=== PATIENT | female | born 1960 | race Caucasian/White ===

== ENCOUNTER 2022-06-01 13:02 | Outpatient (CLI) | payer BC, SELFPAY ==
--- NOTE | 2022-06-01 13:20 | CRLHL7_ITS ---
For Patients: As a result of the Cures Act, medical imaging exams and procedure reports are released immediately into your electronic medical record. You may view this report before your referring provider. If you have questions, please contact your health care provider. BILATERAL SCREENING MAMMOGRAM WITH COMPUTER-AIDED DETECTION AND TOMOSYNTHESIS TECHNIQUE: CC and MLO views were obtained. These mammographic images have been obtained using full-field digital technique. These mammographic images were interpreted with the benefit of computer-aided detection. Breast Tomosynthesis was used in this interpretation. COMPARISON FILM: 03/03/21, 07/29/18, 07/25/17. FINDINGS: There are scattered areas of fibroglandular density IMPRESSION: There is no radiographic evidence for malignancy. ASSESSMENT: BI-RADS Category 1: Negative RECOMMENDATION: Routine screening mammogram in 1 year. A lay language report of this examination will be provided to the patient. GULSHAN STOCKTON M.D. Diagnostic/Nuclear Medicine Radiologist [email or web address] MARIBETH:glenn Transcribed: 3:28 p.mTremaine elizabeth/Dictated by: Gulshan Stockton MD @ 06/11/2022 8:27:00 AM (Electronically Signed)
== END 2022-06-01 13:03 | disposition home or self-care (01) ==
LOC: MAMMO 13:03
PROVIDERS: PCP Family Medicine
DX: Z12.31 Encounter for screening mammogram for malignant neoplasm of breast (principal)
CPT/HCPCS: 77063; 77067

== ENCOUNTER 2022-09-04 09:56 | Outpatient (CLI) | payer BC, SELFPAY ==
--- NOTE | 2022-09-04 10:00 | CRLHL7_ITS ---
For Patients: As a result of the Cures Act, medical imaging exams and procedure reports are released immediately into your electronic medical record. You may view this report before your referring provider. If you have questions, please contact your health care provider. Indication: Sinusitis, pressure Technique: Performed without IV contrast Comparison: None available Findings: Frontal sinuses: Clear. Ethmoid sinuses: Clear. Maxillary sinuses: Mild mucosal thickening within the left maxillary sinus. The right maxillary sinus is clear. The maxillary sinus drainage pathways are patent on both sides. Sphenoid sinuses: Partial opacification of the right sphenoid sinus with mucus and mucosal thickening along with at least partial obstruction of the sphenoethmoidal recess. The left sphenoid sinus and sinus drainage pathway are both clear. Nasal Cavity: Nasal septum is midline. No nasal polyps. No TMJ abnormalities identified. The visualized portions of the orbits, intracranial contents and upper soft tissue neck are grossly negative. Impression: 1. Moderate acute right sphenoid sinus disease. 2. Mild left maxillary sinus disease. Please note that all CT scans at this facility use dose modulation, iterative reconstruction, and/or weight-based dosing when appropriate to reduce radiation dose to as low as reasonably achievable. Dictated by Kory Arambula MD @ 09/04/2022 1:03:17 PM (Electronically Signed)
== END 2022-09-04 09:57 | disposition home or self-care (01) ==
LOC: CT 09:57
PROVIDERS: PCP Family Medicine; Visit Provider Otolaryngology
DX: J32.9 Chronic sinusitis, unspecified (principal); J32.3 Chronic sphenoidal sinusitis; J32.0 Chronic maxillary sinusitis
CPT/HCPCS: 70486

== ENCOUNTER 2022-09-16 18:31 | Emergency (ER) | payer BC, SELFPAY ==
[2022-09-16 18:43] VITALS: BP 132/87; PULSE 81; RESP 18; TEMP 36.2; O2SAT 95; BMI 37.3
[2022-09-16 18:48] LABS: Appearance Urine Cloudy (Clear); Bilirubin Urine Negative (Negative); Blood Urine 3+ (Negative); Color Urine Yellow (Yellow); Glucose Urine Negative (Negative); Ketones Urine Negative (Negative); Leukocyte Esterase Urine 2+ (Negative); Nitrite Urine Negative (Negative); Protein Urine 2+ (Negative); Specific Gravity Urine >= 1.030 (1.000-1.030); Urobilinogen Urine 0.2 (0.2-1.0); pH Urine 6.5 (5.0-8.5)
--- NOTE | 2022-09-16 18:48 | ED.FEMALEGU ---
HPI - Female Genitourinary General Time Seen by Provider: 18:48 Date Seen: 09/16/22 Chief complaint: Urogenital Problems, Female Stated complaint: UTI Time Seen by Provider: 09/16/22 18:48 Source: patient and RN notes reviewed Mode of arrival: ambulatory Limitations: no limitations History of Present Illness HPI Narrative: Emily is a very pleasant 61-year-old female with frequent UTI who comes to the emergency room for evaluation regarding dysuria. A pain with urination started on SaturdaySeptember 14. It is continued and now she does have radiation of the pain into her right flank. She has not had any vomiting nor has she had a fever. She notes that she was treated in the past by Dr. Sherita diamond. Related Data Home Medications Medication Instructions Recorded Confirmed aspirin 325 mg tablet,delayed 325 mg PO QDAY 06/15/22 09/16/22 release Previous Rx's Medication Instructions Recorded amoxicillin 875 mg-potassium 1 tab PO BID #28 tabs 07/31/22 clavulanate 125 mg tablet triamcinolone acetonide 0.1 % 1 applic topical BID #15 grams 07/31/22 topical cream cefuroxime axetil 500 mg tablet 500 mg PO BID #30 tabs 08/21/22 fluticasone propionate 50 2 spray intranasal QDAY #16 grams 08/22/22 mcg/actuation nasal spray,suspension (Flonase Allergy Relief) Allergies Allergy/AdvReac Type Severity Reaction Status Date / Time No Known Drug Allergies Allergy Verified 08/21/22 10:42 Review of Systems Status of ROS: Reports: 6 or more systems reviewed and unremarkable except as noted in History and below Narrative: Denies vomiting, nausea, blood in urine, difficulty breathing PFSH PFS Medical History Adenomatous colon polyp ?D12.6 - Benign neoplasm of colon, unspecified (ICD-10) CVA (cerebral vascular accident) (02/19/16) ?I63.9 - Cerebral infarction, unspecified (ICD-10) Degenerative disc disease, cervical ?M50.30 - Other cervical disc degeneration, unspecified cervical region (ICD-10) GERD (gastroesophageal reflux disease) ?K21.9 - Gastro-esophageal reflux disease without esophagitis (ICD-10) History of recurrent UTI (urinary tract infection) ?Z87.440 - Personal history of urinary (tract) infections (ICD-10) Hx of Lyme disease (10/24/18) ?Z86.19 - Personal history of other infectious and parasitic diseases (ICD-10) Hyperlipidemia ?E78.5 - Hyperlipidemia, unspecified (ICD-10) ADRIEL (obstructive sleep apnea) (08/09/21) ?G47.33 - Obstructive sleep apnea (adult) (pediatric) (ICD-10) Osteoarthritis of right shoulder ?M19.011 - Primary osteoarthritis, right shoulder (ICD-10) Positive KARLEY (antinuclear antibody) (12/19/20) ?R76.8 - Other specified abnormal immunological findings in serum (ICD-10) Rotator cuff tear, right ?M75.101 - Unspecified rotator cuff tear or rupture of right shoulder, not specified as traumatic (ICD-10) SVT (supraventricular tachycardia) ?I47.1 - Supraventricular tachycardia (ICD-10) Surgical History History of Mohs micrographic surgery for skin cancer (12/15/15) ?Z85.828 - Personal history of other malignant neoplasm of skin (ICD-10) ?Z98.890 - Other specified postprocedural states (ICD-10) History of radiofrequency ablation (RFA) procedure for cardiac arrhythmia ?Z98.890 - Other specified postprocedural states (ICD-10) S/P tonsillectomy and adenoidectomy ?Z90.89 - Acquired absence of other organs (ICD-10) Family History Father Multiple myeloma Mother Type 2 diabetes mellitus Thyroid disease Brother Type 2 diabetes mellitus Aunt Malignant neoplasm of fallopian tube Social History Narrative: . 3 children. Retired. Nonsmoker. Social EtOH. Smoking Status: Never smoker Little interest or pleasure in doing things: not at all Feeling down, depressed, or hopeless: not at all Exam Narrative: Exam Narrative: Alert and oriented. Nontoxic in appearance. Heart with regular rate and rhythm and lungs are clear to auscultation. No flank tenderness with percussion. Abdomen is soft. Some slight increased pressure with palpation of the lower abdomen. Const: Vital Signs, click to edit/add: Vital Signs - 24 hr 09/16/22 18:43 Temperature 97.2 F L Pulse Rate [Right Pulse Oximeter] 81 Respiratory Rate 18 Blood Pressure [Ri ght Upper Arm] 132/87 Pulse Oximetry 95 Oxygen Delivery Me thod Room Air Documenting provider has reviewed patient's vital signs: yes Course Vital Signs Vital signs: Initial Vital Signs Temperature 97.2 F L 09/16/22 18:43 Temperature Source Temporal Artery Scan 09/16/22 18:43 Pulse Rate 81 09/16/22 18:43 Respiratory Rate 18 09/16/22 18:43 Blood Pressure 132/87 09/16/22 18:43 Blood Pressure Mean 102 09/16/22 18:43 Blood Pressure Position Sitting 09/16/22 18:43 Pulse Oximetry 95 09/16/22 18:43 Oxygen Delivery Method Room Air 09/16/22 18:43 Vital Signs Temperature 97.2 F L 09/16/22 18:43 Pulse Rate 81 09/16/22 18:43 Respiratory Rate 18 09/16/22 18:43 Blood Pressure 132/87 09/16/22 18:43 Pulse Oximetry 95 09/16/22 18:43 Oxygen Delivery Method Room Air 09/16/22 18:43 Temperature 97.2 F L 09/16/22 18:43 Pulse Rate 81 09/16/22 18:43 Respiratory Rate 18 09/16/22 18:43 Blood Pressure 132/87 09/16/22 18:43 Pulse Oximetry 95 09/16/22 18:43 Oxygen Delivery Method Room Air 09/16/22 18:43 MDM - Female Genitourinary MDM Narrative Medical decision making narrative: 1. UTI-did look back and patient has been successfully treated with Bactrim. Culture at that time was pansensitive. Will use Macrobid today 100 mg p.o. b.i.d. x7 days via [employer] meds. Recommend pushing fluids. Did state that she would need to return for increasing fever, back pain, worsening symptoms especially vomiting. She voices understanding. 2. Disposition-home at the time return as needed for worsening symptoms. Await the urine culture. Medical Records Attestation: I reviewed the patient's medical records. Lab Data Attestation: I reviewed the patient's lab results. Labs: Lab Results 09/16/22 Range/Units 18:33 Urine Color Yellow (Yellow) Urine Appearance Cloudy A (Clear) Urine pH 6.5 (5.0-8.5) Ur Specific Clutier >= 1.030 (1.000-1.030) Urine Protein 2+ A (Negative) Urine Glucose (UA) Negative (Negative) Urine Ketones Negative (Negative) Urine Blood 3+ A (Negative) Urine Nitrite Negative (Negative) Urine Bilirubin Negative (Negative) Urine Urobilinogen 0.2 (0.2-1.0) Ur Leukocyte Esterase 2+ A (Negative) Urine RBC 25-50 A (0-2) Urine WBC >100 A (0-5) Ur Squamous Epith Cells None (None-Few) Urine Bacteria Many A (None) Urine Yeast Few A (None) Discharge Plan Discharge Clinical Impression: UTI (urinary tract infection) Patient Disposition: Home, Self-Care Condition: Unchanged Additional Instructions: start macrobid tonight - prescription through [employer] push fluids Return to the Er for worsening symptoms and as needed Prescriptions: No Action amoxicillin-pot clavulanate 875-125 mg tablet 1 tab PO BID Qty: 28 0RF triamcinolone acetonide 0.1 % cream 1 applic topical BID Qty: 15 0RF aspirin 325 mg tablet,delayed release (DR/EC) 325 mg PO QDAY cefuroxime axetil 500 mg tablet 500 mg PO BID Qty: 30 1RF fluticasone propionate [Flonase Allergy Relief] 50 mcg/actuation spray,suspension 2 spray intranasal QDAY Qty: 16 10RF Rx Instructions: administer into each nostril Follow Up/Referrals: Kory Magallon MD [Primary Care Provider] - Stand Alone Forms: [facility] Info Instructions
[2022-09-16 19:07] LABS: Bacteria Urine Many; RBC Urine 25-50 (0-2); WBC Urine >100 (0-5)
== END 2022-09-16 19:43 | disposition home or self-care (01) ==
PROVIDERS: Emergency Provider Family Medicine; PCP Family Medicine
DX: N39.0 Urinary tract infection, site not specified (principal)
CPT/HCPCS: 81001; 87086; 87186; 99283

== ENCOUNTER 2022-12-01 08:45 | Outpatient (CLI) | payer BC, SELFPAY ==
--- OUTSIDE RECORDS SUMMARY | 2022-12-02 11:38 | XMS_ITS | Continuity of Care Document ---
Author Name Unknown Organization [facility] Address [address] [place] [address] Phone Care Team Providers Care Cloth Spreader Name Role Phone Manjula Perez MD Unavailable Unavailable Allergies, Adverse Reactions, Alerts Substance Reaction Status Criticality No Known Allergies Active No Inform ation Medications Medication Instructions Dosage Effective Dates (start - stop) Status Comments aspirin 325 mg tablet take 1 tablet by o ral route every day 325 MG - Active Naprosyn 500 mg tablet take 1 tablet by oral route 2 times every day with food as needed 500 MG - Active Procedures Procedure Date Office/Outpatient Visit, New Routine Venipuncture Specimen Handling Rbc Sed Rate, Nonautomated Assay Of Ck (Cpk) CReactive Protein Dna Antibody, Single Strand Dna Antibody, [place] Nuclear Antigen Antibodies Antinuclear Antibodies Advance Directives Directive Yes / No Effective Date File Name No Information Encounters Encounter Description Practice Location Reason(s) For Visit Diagnoses Date Provider Providers Copied on Encounter [facility], [address], [place], [address], [place] tel:[phone] [facility] , No Information Chris Fair. [facility] [address], [place], [address], [place]. tel:[phone] Office/Outpa tient Visit, New [facility], [address], [place], [address], [place] tel:[phone] [facility] , Abnormal Lab Study (chief complaint) Musculoske letal pain (chief complaint) Raised antibody titerMyalgia Chris Fair. [facility] [address], [place], [address], [place]. tel:[phone] Referring Provider: Manjula Amador, [facility] [address], [place], [address]. tel:[phone] Family History Family Member Type Diagnosis Age At Onset Mother Problem Arthritis Mother Problem Thyroid disorder Maternal grandmother Problem Arthritis Immunizations Vaccine Date Status Comments COVID-19 Pfizer administered Source: Othe r Provider COVID-19 Pfizer administered Source: Othe r Provider Payers Payer name Insurance type Covered alliance party ID Authorcarlos flores(s) [facility] [id number] Social History Type Description Quantity Date Captured Comments Sex Female Smoking Status No Information Chief Complaint And Reason For Visit No Information Reason For Referral Reason For Referral No Information Plan Of Treatment Date Type Action Status No Information History Of Present Illness Encounter Date Complaint History Of Prese nt Illness Abnormal Lab Study Musculoskeletal pain Functional Status Date Functional Assessmen t No Information Instructions Date Instruction Additional Infor mation No Information Assessments Type Assessment Date No Information Patient Care Teams Name Effective Dates (start - stop) Status Members No Information
== END 2022-12-01 08:46 | disposition home or self-care (01) ==
LOC: NFLDREF 12-02 11:36
PROVIDERS: PCP Family Medicine; Referring Provider Family Medicine; Visit Provider Registered Nurse
DX: R30.0 Dysuria (principal); N39.0 Urinary tract infection, site not specified; N30.01 Acute cystitis with hematuria
CPT/HCPCS: 87086

== ENCOUNTER 2023-02-01 10:58 | Outpatient (CLI) | payer MEDICARE, SELFPAY ==
--- OUTSIDE RECORDS SUMMARY | 2023-02-01 11:02 | XMS_ITS | Continuity of Care Document ---
Author Name Unknown Organization [facility] Address [address] [place] [address] Phone Care Team Providers Care Store Clerk Name Role Phone Manjula Perez MD Unavailable [...] Protein Dna Antibody, Single Strand Dna Antibody, [place] Nuclear Antigen Antibodies Antinuclear Antibodies Advance Directives Directive Yes / No Effective Date File Name No Information Encounters Encounter Description Practice Location Reason(s) For Visit Diagnoses Date Provider Providers Copied on Encounter [facility], [address], [place], [address], [place] tel:[phone] [facility] , No Information Chris Fair. [facility] [address], [place], [address], [place]. tel:[phone] Office/Outpa tient Visit, New [facility], [address], [place], [address], [place] tel:[phone] [facility] , Abnormal Lab Study (chief complaint) Musculoske letal pain (chief complaint) Raised antibody titerMyalgia Chris Fair. [facility] [address], [place], [address], [place]. tel:[phone] Referring Provider: Manjula Amador, [facility] [address], [place], [address]. tel:[phone] Family History Family Member Type Diagnosis Age At Onset Mother Problem Arthritis Mother Problem Thyroid disorder Maternal grandmother Problem Arthritis Immunizations Vaccine Date Status Comments COVID-19 Pfizer administered Source: Othe r Provider COVID-19 Pfizer administered Source: Othe r Provider Payers Payer name Insurance type Covered republican ID Authorcarlos flores(s) [facility] [id number] Social History Type Description Quantity Date Captured Comments Sex Female Smoking Status No Information Chief Complaint And Reason For Visit No Information Reason For Referral Reason For Referral No Information History Of Present Illness Encounter Date Complaint History Of Prese nt Illness Abnormal Lab Study Musculoskeletal pain Functional Status Date Functional Assessmen t No Information Instructions Date Instruction Additional Infor mation No Information Assessments Type Assessment Date No Information Patient Care Teams Name Effective Dates (start - stop) Status Members No Information
== END 2023-02-01 10:59 | disposition home or self-care (01) ==
PROVIDERS: PCP Family Medicine; Visit Provider Family Medicine
DX: R53.83 Other fatigue (principal); E66.9 Obesity, unspecified; E78.5 Hyperlipidemia, unspecified; I63.9 Cerebral infarction, unspecified
CPT/HCPCS: 80048; 80061; 82607; 83735; 84443

== ENCOUNTER 2023-05-30 18:48 | Outpatient (CLI) | payer MEDICARE, SELFPAY ==
--- OUTSIDE RECORDS SUMMARY | 2023-06-06 15:38 | XMS_ITS | Encounter Summary ---
Author Name Unknown Organization [facility] Address [address] [place] [address] Care Team Providers Care Roustabout Crew Name Role Phone Kwan De La Cruz MD Primary Care Provider [phone] Mechelle Mtz APRN BUSINESS RULES DEVELOPER Unavailable + Encounter Details Date Type Department Care Team (Latest Contact Info) Description 11/09/2022 Travel Social History Tobacco Use Types Packs/Day Years Used Date Smoking Tobacco: Never Smokeless Tobacco: Never Alcohol Use Standard Drinks/Week Comments Yes 0 (1 standard drink = 0.6 oz pur e alcohol) occassional PHQ-2 Answer Date Recorded PHQ-2 Score 0 11/09/2022 Sex and Gender Information Value Date Recorded Sex Assigned at Female 04/21/2021 9:03 AM CHIEF PHYSICAL THERAPIST Gender Identity Female 04/21/2021 9:03 AM CHIEF PHYSICAL THERAPIST Sexual Orientation Not on file COVID-19 Exposure Response Date Recorded In the last 10 days, have juliette vazquez been in contact with someone who was confirmed or suspected to have Coronavirus/COVID-19? No / Unsure 11/09/2022 10:11 AM CDT documented as of this encounter Plan of Treatment Upcoming Encounters Date Type Department Care Team (Late st Contact Info) Description 11/14/2023 10:30 AM CDT Office Visit [address] [address] Claudette Retana MD [address] [place] [address] documented as of this encounter Visit Diagnoses Not on filedocumented in this encounter Care Teams Roustabout Crew Relationship Specialty Start [place] [address] [place] [address] PCP - General Family Practice 02/17/18 Mechelle Mtz APRN BUSINESS RULES DEVELOPER [facility] [address], [place] [phone] Assigned PCP 07/14/22 01/25/23 documented as of this encounter
--- OUTSIDE RECORDS SUMMARY | 2023-06-06 15:38 | XMS_ITS | Encounter Summary ---
Author Name Unknown Organization [facility] Address [address] [place] [address] Care Team Providers Care Class A Regional Drivers Name Role Phone Kory Noland MD Primary Care Provider + Kwan De La Cruz MD Primary Care Provider [phone] Murali Hickey PA-C Primary Care Provider Kwan De La Cruz MD Primary Care Provider [phone] Kwan De La Cruz MD Unavailable [phone] Kwan De La Cruz MD Unavailable [phone] Brandie Jones APRN GRAVE DIGGER Unavailable Kwan De La Cruz MD Unavailable [phone] Mechelle Mtz PRESCHOOL EDUCATION DIRECTOR GRAVE DIGGER Unavailable + Claudette Retana MD Unavailable Miguelito Membreno MD Unavailable [phone] Dayna Guzman PRESCHOOL EDUCATION DIRECTOR CNM Unavailable Unava ilable Adrian Montesinos DPM Unavailable [phone] Kwan De La Cruz MD Unavailable [phone] Mechelle Mtz APRN GRAVE DIGGER Unavailable + Kwan De La Cruz MD Unavailable [phone] Mechelle Mtz PRESCHOOL EDUCATION DIRECTOR GRAVE DIGGER Unavailable + Mechelle Mtz PRESCHOOL EDUCATION DIRECTOR GRAVE DIGGER Unavailable + Claudette Retana MD Unavailable Reason for Visit * Reason Onset Date Comments Abstract 01/04/2012 Please Abstract Encounter Details Date Type Department Care Team (Late st Contact Info) Description 01/04/2012 Telephone [facility] [address] [place] [address] [place] [address] [place] [address] Abstract (Please Abstract ) Social History Tobacco Use Types Packs/Day Years Used Date Smoking Tobacco: Never Alcohol Use Standard Drinks/Week Comments Yes 0 (1 standard drink = 0.6 oz pur e alcohol) occassional Sex and Gender Information Value Date Recorded Sex Assigned at Female 04/21/2021 9:03 AM CROWN PRESSER Gender Identity Female 04/21/2021 9:03 AM CROWN PRESSER Sexual Orientation Not on file documented as of this encounter Miscellaneous Notes * Telephone Encounter - Eliza Dover - 01/04/2012 4:05 PM CDT Please abstract the following data from this visit with this patient into the appropriate field in Epic: Mammogram done on this date: is due will schedule future appointment, by this group: [facility] location , results were normal. Pap smear done on this date: is due will schedule future appointment , by this group: [facility] location , results were normal. documented in this encounter Plan of Treatment Upcoming Encounters Date Type Department Care Team (Late Contact Info) Description 11/14/2023 10:30 AM CDT Office Visit [address] [place] [phone] Claudette Retana MD [address] [address] documented as of this encounter Visit Diagnoses Not on filedocumented in this encounter Additional Health Concerns Infection Onset Date Last Indicated Resolved Time Rule Out COVID-19 11/26/2019 11/26/2019 11/27/2019 7:57 PM CDT documented as of this encounter Care Teams Class A Regional Drivers Relationship Specialty Start [place] [address] [place] [address] PCP - General 07/25/08 02/28/16 [place] [address] [place] [address] PCP - General Family Practice 02/29/16 12/16/17 Murali Hickey PA-C [address] [place] [address] PCP - General Family Practice 12/17/17 02/16/18 [place] [address] [place] [address] PCP - General Family Practice 02/17/18 [place] [address] [place] [address] PCP - Assigned PCP 03/04/16 07/22/18 [place] [address] [address] [place] [address] Assigned PCP 03/04/16 10/25/18 Brandie Jones APRN GRAVE DIGGER [address] [place] [address] Assigned PCP 10/26/18 03/14/19 [place] [address] [place] [address] Assigned PCP 03/15/19 03/05/20 Mechelle Mtz APRN GRAVE DIGGER [facility] [address] [place] [address] Assigned PCP 03/06/20 01/28/21 Claudette Retana MD [address] [address] Assigned Surgical Provider 03/11/2010/26/22 [place] [address] [place] [address] Assigned Musculoskeletal Provider 03/11/20 08/27/20 Dayna Guzman APRN CNM Assigned OBGYN Provider 03/11/20 10/22/20 Adrian Montesinos, DPM [address] [facility] [place] [address] Assigned Musculoskeletal Provider 08/28/20 10/22/20 [place] [address] [place] [address] Assigned PCP 01/29/21 05/27/21 Mechelle Mtz APRN GRAVE DIGGER [facility] [address] [place] [address] Assigned PCP 05/28/21 07/29/21 [place] [address] [place] [address] Assigned PCP 07/30/21 03/09/22 Mechelle Mtz APRN GRAVE DIGGER [facility] [address] [place] [phone] Assigned PCP 03/10/22 05/04/22 Mechelle Mtz APRN GRAVE DIGGER [facility] [address] [place] [phone] Assigned PCP 07/14/22 01/25/23 Claudette Retana MD [address] [place] [address] Assigned Surgical Provider 11/17/22 documented as of this encounter
--- OUTSIDE RECORDS SUMMARY | 2023-06-06 15:38 | XMS_ITS | Encounter Summary ---
Author Name Unknown Organization [facility] Address [address] [place] [address] Care Team Providers Care Microsoft Windows Engineer Name Role Phone Kwan De La Cruz MD Primary Care Provider [phone] lCaudette Retana MD Unavailable Kwan De La Cruz MD Unavailable Mechelle Mtz WATCH INSPECTOR POWER PLANT ENGINEER Unavailable + Kwan De La Cruz MD Unavailable [phone] Mechelle Mtz WATCH INSPECTOR POWER PLANT ENGINEER Unavailable + Mechelle Mtz APRN POWER PLANT ENGINEER Unavailable + Claudette Retana MD Unavailable Encounter Details Date Type Department Care Team (Late st Contact Info) Description 05/01/2021 [facility] [place] Medical Advice [address] [phone] Nasrin Smith RN Social History Tobacco Use Types Packs/Day Years Used Date Smoking Tobacco: Never Smokeless Tobacco: Never Alcohol Use Standard Drinks/Week Comments Yes 0 (1 standard drink = 0.6 oz pur e alcohol) occassional PHQ-2 Answer Date Recorded PHQ-2 Score 0 04/28/2021 Sex and Gender Information Value Date Recorded Sex Assigned at Female 04/21/2021 9:03 AM CARAMEL CANDY MAKER Gender Identity Female 04/21/2021 9:03 AM CARAMEL CANDY MAKER Sexual Orientation Not on file COVID-19 Exposure Response Date Recorded In the last month, have you been in contact with someone who was confirmed or suspected to have Coronavirus / COVID-19? No / Unsure 04/28/2021 1:37 PM CARAMEL CANDY MAKER documented as of this encounter Plan of Treatment Upcoming Encounters Date Type Department Care Team (Late st Contact Info) Description 11/14/2023 10:30 AM CDT Office Visit [address] [phone] Claudette Retana MD [address] [place] [id number] documented as of this encounter Visit Diagnoses Not on filedocumented in this encounter Care Teams Microsoft Windows Engineer Relationship Specialty Start [place] [address] [place] [address] PCP - General Family Practice 02/17/18 Claudette Retana MD [address] [place] [address] Assigned Surgical Provider 03/11/20 10/26/22 [place] [address] [place] [address] Assigned PCP 01/29/21 05/27/21 Mechelle Mtz APRN POWER PLANT ENGINEER [facility] [place] [address] Assigned PCP 05/28/21 07/29/21 [place] [address] [place] [address] Assigned PCP 07/30/21 03/09/22 Mechelle Mtz APRN POWER PLANT ENGINEER [facility] [address], [place] [address] Assigned PCP 03/10/22 05/04/22 Mechelle Mtz APRN POWER PLANT ENGINEER [facility] [address], [place] [phone] Assigned PCP 07/14/22 01/25/23 Claudette Retana MD [address] [place] [id number] Assigned Surgical Provider 11/17/22 documented as of this encounter
--- OUTSIDE RECORDS SUMMARY | 2023-06-06 15:38 | XMS_ITS | Encounter Summary ---
Author Name Unknown Organization [facility] Address [address] [place] [address] Care Team Providers Care Pad Cutter Name Role Phone Kwan De La Cruz MD Primary Care Provider [phone] Kwan De La Cruz MD Unavailable [phone] Mechelle Mtz APRN JUNIOR LINUX SYSTEMS ADMINISTRATOR Unavailable + Claudette Retana MD Unavailable Miguelito Membreno MD Unavailable [phone] Dayna Guzman SUPERINTENDENT LOGGING CNM Unavailable Unava ilable Adrian Montesinos DPM Unavailable [phone] Kwan De La Cruz MD Unavailable [phone] Mechelle Mtz APRN JUNIOR LINUX SYSTEMS ADMINISTRATOR Unavailable + Kwan De La Cruz MD Unavailable [phone] Mechelle Mtz APRN JUNIOR LINUX SYSTEMS ADMINISTRATOR Unavailable + Mechelle Mtz APRN JUNIOR LINUX SYSTEMS ADMINISTRATOR Unavailable + Claudette Retana MD Unavailable Encounter Details Date Type Department Care Team (Late st Contact Info) Description 01/26/2020 [facility] Medical Advice [address] [phone] Ginette Padilla, ANGELO Social History Tobacco Use Types Packs/Day Years Used Date Smoking Tobacco: Never Smokeless Tobacco: Never Alcohol Use Standard Drinks/Week Comments Yes 0 (1 standard drink = 0.6 oz pur e alcohol) occassional PHQ-2 Answer Date Recorded PHQ-2 Score 0 09/18/2019 Sex and Gender Information Value Date Recorded Sex Assigned at Female 04/21/2021 9:03 AM TELLER Gender Identity Female 04/21/2021 9:03 AM TELLER Sexual Orientation Not on file COVID-19 Exposure Response Date Recorded In the last month, have you been in contact with someone who was confirmed or suspected to have Coronavirus / COVID-19? No / Unsure 01/28/2020 11:08 AM CDT documented as of this encounter Plan of Treatment Upcoming Encounters Date Type Department Care Team (Late st Contact Info) Description 11/14/2023 10:30 AM CDT Office Visit [address] [phone] Claudette Retana MD [address] [facility] [place] [address] [place] [address] documented as of this encounter Visit Diagnoses Not on filedocumented in this encounter Care Teams Pad Cutter Relationship Specialty Start [place] [address] [place] [address] PCP - General Family Practice 02/17/18 [place] [address] [place] [address] Assigned PCP 03/15/19 03/05/20 Mechelle Mtz APRN CNP [facility] [address] [place] [address] Assigned PCP 03/06/20 01/28/21 Claudette Retana MD [address] [facility] [place] [address] [place] [address] Assigned Surgical Provider 03/11/2010/26/22 [place] [address] [place] [address] Assigned Musculoskeletal Provider 03/11/20 08/27/20 Dayna Guzman, SUPERINTENDENT LOGGING CNM Assigned OBGYN Provider 03/11/20 10/22/20 Adrian Montesinos, DPM [address] [place] [address] Assigned Musculoskeletal Provider 08/28/20 10/22/20 [place] [address] [place] [address] Assigned PCP 01/29/21 05/27/21 Mechelle Mtz APRN JUNIOR LINUX SYSTEMS ADMINISTRATOR [facility] [address] [place] [phone] Assigned PCP 05/28/21 07/29/21 [place] [address] [place] [address] Assigned PCP 07/30/21 03/09/22 Mechelle Mtz APRN JUNIOR LINUX SYSTEMS ADMINISTRATOR [facility] [place] [address] [place] [phone] Assigned PCP 03/10/22 05/04/22 Mechelle Mtz APRN [facility] [address], [place] [address] Assigned PCP 07/14/22 01/25/23 Claudette Retana MD [address] [place] [address] [address] [place] [address] Assigned Surgical Provider 11/17/22 documented as of this encounter
--- OUTSIDE RECORDS SUMMARY | 2023-06-06 15:38 | XMS_ITS | Data Portability ---
Author Name Unknown Address [address] [place] [address] Phone [phone] Organization [facility] WINDMILL MECHANIC, [id number] GROVE Address [address] [facility] [address] [place] [address] Assessment No assessment recorded. Plan of Treatment Reminders Order Date Submit Date Provider Last Modified By Organization Details Last Modified Time Details Appointments None recorded. Lab None recorded. Referral None recorded. Procedures None recorded. Surgeries None recorded. Imaging US, pelvis 2021 022 JARAD Not available 12:21:26 Medication Orders fluocinolon e 0.025 % topical ointment 2021 [id number] [employer], [facility] [address], [address], 22:58:08 Estrace 0.01% (0.1 mg/gram) vaginal cream 2020 021 JARAD [id number] [employer], [address], [address], 22:56:57 Patient TargetsNo targets recorded. Patient Instructions Encounter Date Encounter Id Patient Instructions Last Modified By Organization Details Last Modified Time 08/15/2021 Reviewed and updated her surgical and family history. No breast, colon, ovarian, uterine, prostate or pancreatic cancer. Her maternal aunt was diagnosed with Fallopian tube cancer in her 60's. No FH of HTN, [place] or CVA. After the visit was done, she had 1 more item to discuss. She is still bothered by intermittent LLQ pain. It feels like menstrual cramping. It lasts a few minutes. Nothing triggers the pain. No change in bowel or bladder function. Will schedule pelvic US to confirm normal adnexa. [email or web address] Not available 08/15/2021 23:03:43 08/08/2020 [id number] Due for Pap with HPV cotesting in 04/2023. Reviewed her [place] chart. I do not find any record of a 2019 mammogram. She will schedule one this year. I don't know if vaginal estrogen will decrease her UTI frequency but I willing to write the Rx. Certain X RAY TECHNOLOGIST cancers are genetic. There are typically several relatives with onset of cancer prior to menopause. Emily has a single aunt with Fallopian tube cancer dx in her 60's. There is not enough info yet to recommend to Emily that she undergo hysterectomy and BSO. I rec she ask her aunt about whether she had cancer genetic counseling. If she has and she was found to have a genetic mutation then Emily could opt to be tested for that particular finding. If she is neg then she is at no higher risk of Fallopian tube cancer than the general population. If she is positive then hysterectomy with BSO might be recommended. If hysterectomy is recommended I would refer her to one of my partners that does pelvic floor prolapse surgery. Reviewed and updated her surgical and family hx. No breast, colon, ovarian, prostate or pancreatic cancer. [email or web address] Not available 08/08/2020 22:54:51 Reason for Referral None Reported. Results Created Date Observation Date Name Description Value Unit Range Abnormal Flag LastModifiedBy Organization Detail LastModifiedTime 03/03/2003/03/2021 MAMMO , eric romero No observ ation record ed. [facility] [address], [place], [address], 03/03/2021 16:43:24 09/15/19 22 09/14/2021 danny RUEDA No observ ation record ed. JARAD [address], [place], [address], 09/26/2021 19:39:32 Result Notes None recorded. Problems Name Status Onset Date Resolution Date Notes Provider Name and Address Organization Details Recorded Time Hypothyroidism Active 01/2011 Not Available [facility] 12/23/2019 03:57:50 Notes:*Problem Name: Cerebra l vascular accident *Problem Status: active Problem Notes None recorded. Procedures Surgical History Date Name Laterality Status Provider Name and Address Organization Details Recorded Time 03/03/20 21 Date of Last Mammogram completed Madelyn encarnacion, [facility] [employer] MECH[employer]IC 03/03/2021 16:43:45 04/25/20 18 Date of Last Pap Smear completed Chelsea encarnacion, [facility] [employer]LL [employer]CHAN[employer] 08/14/2021 13:15:18 01/08/20 18 Date of Last Colonoscopy completed Chelsea encarnacion, [facility] WINDMILL MECHANIC 08/14/2021 13:16:03 destruction [place] [id number] [facility],[address], [place], [address], [facility] WINDMILL MECHANIC 08/08/2020 22:24:59 excision of basal [place] [address] [facility],[address], [place], [address], [facility] [employer]LL MECH[employer] 08/08/2020 16:17:12 tonsillectomy and adenoidectomy completed Yumiko encarnacion [facility] [employer]CH[employer] 08/08/2020 16:23:26 Imaging Results Imaging Date Name Status LastModified by Organiz ation Details LastModified Time 03/03/2021 MAMMO, screening, bilateral completed [facility] [address] [place] [address] [address], [place], [address], 03/03/2021 16:43:24 09/14/2021 US, pelvis completed [place] [address], [facility], [place], [address], 09/26/2021 19:39:32 Procedure Notes None recorded. Medical Equipment None Reported. Allergies Allergen ID Allergen Name Allergen Category Reaction Reaction Severity Criticality Documentation Date Start Date Code Code System Note Provider Name and Address Organization Details Recorded Time 94917 Lipitor medicatio n Not available Not available Not available 12/23/2019 92314 5 RxNorm *Note : not an aller gy but cause d a lot of muscl e barbara ess Not Available [facility] 0 03:45:07 Medications Name Sig Start Date Stop Date Status Note LastModified by Organization Details LastModified Time aspirin 325 mg tablet Take 1 tablet every day by oral route. active Not Available Not Available No t Available fluconazole 150 mg tablet TAKE ONE TABLET BY MOUTH ON DAY 1 AND DAY 3 08/15 completed Not Available Not Available Not Available prednisone 20 mg tablet TAKE 3 TABLETS (60 MG) BY MOUTH ONCE DAILY. 08/15 completed Not Available Not Available Not Available sulfamethox azole 800 mg-trimetho prim 160 mg tablet TAKE 1 TABLET BY MOUTH TWICE A DAY 08/15 completed Not Available Not Available Not Available polymyxin B sulfate 10,000 unit-trimet hoprim 1 mg/mL eye drops INSTILL 2 DROPS 3-4 TIMES DAILY FOFR 5-7 DAYS 08/15 completed Not Available Not Available Not Available hydrocortis one 2.5 % topical cream APPLY TOPICALLY TO AREAS FOR 2 WEEKS 08/15 completed Not Available Not Available Not Available fluocinolon e 0.025 % topical ointment APPLY THIN FILM TO THE AFFECTED AREAS TOPICALLY 2 TIMES PER DAY FOR 1 MONTH active Not Available Not Available No t Available cefuroxime axetil 500 mg tablet TAKE 1 TABLET BY MOUTH TWICE A DAY 08/15 completed Not Available Not Available Not Available naproxen 500 mg tablet TAKE 1 TABLET BY MOUTH TWICE A DAY 08/15 completed Not Available Not Available Not Available Estrace 0.01% (0.1 mg/gram) vaginal cream insert 1 gm pv at hs for 2 weeks then use twice/wee k 2020 active Not Available Not Available Not Avai lable rosuvastati n 5 mg tablet TAKE 1 TABLET BY MOUTH EVERY DAY 08/15 completed Not Available Not Available Not Available nitrofurant oin monohydrate /macrocryst als 100 mg capsule TAKE 1 CAPSULE BY MOUTH TWICE A DAY 08/15 completed Not Available Not Available Not Available Crestor 08/15 completed Not Available Not Available Not Available Vitals Date Recorded Body weight Body mass index (BMI) Body height Systolic blood pressure Diastolic blood pressure Provider Name and Address Organization Details Last Updated DateTime 08/15/2021 060255.3 9 g 42 kg/m2 168.91 cm 122 mm[Hg] 78 mm[Hg] AFIA Solomon [employer] 2 15:24:05 Date Recorded Body height Body mass index (BMI) Body weight Systolic blood pressure Diastolic blood pressure Provider Name and Address Organization Details Last Updated DateTime 02/04/2012 172.8216 cm 29.95 kg/m2 07005.69 689 g 120 mm[Hg] 76 mm[Hg] Not Available [facility] 0 09:41:12 Date Recorded Body mass index (BMI) Body weight Body height Systolic blood pressure Diastolic blood pressure Provider Name and Address Organization Details Last Updated DateTime 04/05/2014 33.27 kg/m2 99332.76 718 g 170.688 cm 132 mm[Hg] 76 mm[Hg] Not Available [facility] 0 09:41:12 Date Recorded Body mass index (BMI) Body weight Body height Systolic blood pressure Diastolic blood pressure Provider Name and Address Organization Details Last Updated DateTime 06/06/2015 34.41 kg/m2 555352.0 9851 g 171.2976 cm 128 mm[Hg] 80 mm[Hg] Not Available [facility] 0 09:41:12 Date Recorded Body height Body mass index (BMI) Body weight Systolic blood pressure Diastolic blood pressure Provider Name and Address Organization Details Last Updated DateTime 10/30/2018 170.0784 cm 40.09 kg/m2 428961.6 4672 g 120 mm[Hg] 74 mm[Hg] Not Available [facility] 0 09:41:12 Date Recorded Body weight Body mass index (BMI) Body height Systolic blood pressure Diastolic blood pressure Provider Name and Address Organization Details Last Updated DateTime 06/22/2019 279507.2 3909 g 40.74 kg/m2 169.164 cm 116 mm[Hg] 72 mm[Hg] Not Available [facility] 0 09:41:12 Date Recorded Body mass index (BMI) Body height Body weight Systolic blood pressure Diastolic blood pressure Provider Name and Address Organization Details Last Updated DateTime 04/25/2018 39.84 kg/m2 170.0784 cm 926495.8 66169 g 110 mm[Hg] 78 mm[Hg] Not Available [facility] 0 09:41:12 Date Recorded Body height Body weight Body mass index (BMI) Systolic blood pressure Diastolic blood pressure Provider Name and Address Organization Details Last Updated DateTime 11/21/2018 170.0784 cm 140895.1 67891 g 40.47 kg/m2 128 mm[Hg] 86 mm[Hg] Not Available [facility] 0 09:41:12 Date Recorded Body weight Body mass index (BMI) Body height Systolic blood pressure Diastolic blood pressure Provider Name and Address Organization Details Last Updated DateTime 07/29/2018 096794.4 6198 g 39.78 kg/m2 170.0784 cm 122 mm[Hg] 70 mm[Hg] Not Available [facility] 0 09:41:12 Date Recorded Body height Body weight Body mass index (BMI) Systolic blood pressure Diastolic blood pressure Provider Name and Address Organization Details Last Updated DateTime 01/29/2011 172.8216 cm 973159.8 3146 g 39.23 kg/m2 120 mm[Hg] 82 mm[Hg] Not Available [facility] 0 09:41:12 Date Recorded Body mass index (BMI) Body height Body weight Systolic blood pressure Diastolic blood pressure Provider Name and Address Organization Details Last Updated DateTime 04/01/2013 33.41 kg/m2 171.2976 cm 04751.74 8105 g 122 mm[Hg] 68 mm[Hg] Not Available [facility] 0 09:41:12 Date Recorded Body mass index (BMI) Body weight Body height Systolic blood pressure Diastolic blood pressure Provider Name and Address Organization Details Last Updated DateTime 01/06/2010 37.86 kg/m2 588903.5 0013 g 172.8216 cm 130 mm[Hg] 74 mm[Hg] Not Available [facility] 0 09:41:12 Date Recorded Body weight Body height Body mass index (BMI) Systolic blood pressure Diastolic blood pressure Provider Name and Address Organization Details Last Updated DateTime 08/01/2016 002324.9 76558 g 170.0784 cm 36.71 kg/m2 112 mm[Hg] 80 mm[Hg] Not Available [facility] 0 09:41:12 Date Recorded Body height Body mass index (BMI) Body weight Systolic blood pressure Diastolic blood pressure Provider Name and Address Organization Details Last Updated DateTime 08/08/2020 168.91 cm 41 kg/m2 539211.3 9 g 126 mm[Hg] 84 mm[Hg] Yumiko Hitchcock AFIA encarnacion [employer]LL MECHANIC 16:32:51 Social History Question Answer Notes LastModified by [employer] Details LastModified Time Tobacco Smoking Status Never Smoker Eliza Thomson [employer] encarnacion [employer]LL MECH[employer]IC 08/04/2020 17:01:59 Do You Have An Advance Directive? No Information not available 08/08/2020 What Is Your Level Of Caffeine Consumption? Occasional Information not available 08/08/2020 How Much Tobacco Do You Chew? 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 Information not available 08/15/2021 Do You Use Your Seat Belt Or Car Seat Routinely? Yes Information not available 08/15/2021 Sex: Female Functional Status Question Answer Note LastModified by [employer] Details LastModified Time What is your exercise level? None walks in the summer [email or web address] Information not available 08/15/2021 Mental Status None recorded. Family History Relationship Description Onset Age of this Age Resolved Age Notes Brother Family history of diabetes mellitus Mother Family history of diabetes mellitus Mother Disorder of thyroid gland Father Multiple myeloma 77 Maternal Aunt Primary malignant neoplasm of fallopian tube in her 60's Medical History Condition Response Neurology- Stroke/TIA Y Gynecological History Statement/Question Response Date of Last Mammogram 03/03/2021 Date of Last Colonoscopy 01/07/2018 Total lifetime partners Less than 5 Age at first intercourse 18 Y Current Control Method Menopause Date of Last Pap Smear 04/25/2018 Date of Last Cholesterol Screening 02/24 13 Obstetrics History GPAL:G 3 P 3 0 0 3 Type Value Multiple Births 0 Full Term 3 Induced 0 Spontaneous 0 Premature 0 Living 3 Ectopics 0 Total 3 Immunizations Vaccine Type Date Status Provider Name and Address Organization Details Recorded Time Tdap 06/22/2019 completed Not Available [facility] 09:30:37 Influenza, seasonal, injectable 01/29/2011 completed Not Available [employer] 08/15/2021 15:04:49 Influenza, seasonal, injectable 02/04/2012 completed Not Available [employer] 08/15/2021 15:04:49 Influenza, seasonal, injectable 04/01/2013 completed Not Available [employer] 08/15/2021 15:04:49 influenza, injectable, quadrivalent, preservative free 06/06/2015 completed Not Available [employer] 15:04:49 influenza, injectable, quadrivalent, preservative free 04/05/2014 completed Not Available [employer] 15:04:49 unknown 01/06/2010 completed Not Available [employer] 08/15 15:04:50 Past Encounters Encounter ID Performer Location Encounter Start Date Encounter Closed Date Diagnosis/Indication [id number] CARMEN YEN MD [id number] E_BLAINE [address] [facility] [address] [place] [address] 08/08/2020 16:20:30 08/08/2020 18:34:01 Gynecologic examination Family history of cancer Atrophic vulva [id number] CARMEN YEN MD [id number] E_BLAINE [address] [facility] [address] [place] [address] 08/15/2021 15:04:48 08/16/2021 11:15:40 Gynecologic examination Screening for malignant neoplasm of breast Screening for malignant neoplasm of colon Screening for malignant neoplasm of cervix Vulval irritation [id number] CARMEN YEN MD [id number] E_BLAINE [address] [facility] [address] [place] [address] 09/14/2021 13:53:58 09/14/2021 14:14:45 Pain in pelvis Health Concerns Section Related Observation LastModified by Organization Detai ls LastModified Time None Recorded Concern Status LastModified by Organization Details LastModified Time None Recorded Advance Directives Directive N: Payers Encounter Date Sequence Insurance Name Policy Number Policy Elkins Covered Member ID Elkins Member ID Guarantor Name 09/14/2021 1 [facility] [id number] Emily Caldera [id number] Emily Caldera 08/15/2021 1 [employer] [id number] Emily Caldera [id number] Emily Caldera 08/15/2021 1 [place] [id number] Wicho Caldera [id number] Emily Caldera 08/08/2020 1 [place] [id number] Wicho Caldera [id number] Emily Caldera Notes Date Note Type Note Provider Name and Address Organization Details Recorded Time 08/08/2020 text/html HPI Notes: This woman is a 59 year old G 3 P 3003 who presents for her annual exam. Roomed by April. She declines knitter mechanic for her breast and/or pelvic exam. Her primary adult care manager was not documented today. She does not have an advanced directive. She does not want STI screening. Depression risk assessment: PHQ9 SCORE: 0 Tobacco use: no Her menses are no longer present. She was told to use vaginal estrogen to decrease her bladder infections. She has 1-2/year. Since her last X RAY TECHNOLOGIST annual exam 1 year ago she had the first dose of the COVID-19 vaccine. A maternal aunt was recently diagnosed with aggressive Fallopian tube cancer. It was found incidentally during surgery on her bladder. She will have surgery next month. Emily wonders if she should have a hysterectomy. Her aunt told her the cancer was genetic. Emily does not know if her aunt had cancer genetic counseling. That aunt's granddaughter had a brain tumor at age 9 or 10. Her mom has 9 siblings. Her mom is the oldest in the family. The aunt with tubal cancer is 3 rd youngest. Emily has a maternal uncle who had skin cancer. Otherwise her remaining maternal aunts and uncles have not had cancer. She moved to [place], [place] in February. It is near [place]. She lives two houses away from her daughter who gave to 31 week identical twin girls in May. They recently came home after their NICU stay. Her other granddaughter spends half the year in [place]; her son [place] 50% [place] [address] [facility],[address], [place], [address], [facility] [employer]LL MECHANIC 08/08/2020 22:57:34 08/15/2021 text/html HPI Notes: This woman is a 60 year old who presents for her annual exam. Roomed by Chelsea. She declines knitter mechanic for her breast and/or pelvic exam. Her primary adult care manager is Kory Magallon MD ([facility]). She does not have an advanced directive. She does not want STI screening. Depression risk assessment: PHQ-9 SCORE: 3 Tobacco use: no Her menses are no longer present. Since her last X RAY TECHNOLOGIST annual exam 1 year ago her vulvar symptoms are worse. She scratches frequently. Her vulvar skin feels dry with little slits/cuts. Last year I prescribed vaginal estrogen cream which she really hasn't been using. (I reviewed my note from last year. I prescribed the cream because she was told it would decrease her bladder infections). She stopped taking her statin 6 months ago in the hopes it would decrease her leg pain. The pain has not decreased. The statin was started because she had a CVA in 2016. Her cholesterol has never been high. She has three granddaughters. Oldest lives out of state. The twins live very close to her in [place]; she watches them 5 days/week. Hr 4th grandchild [place] [id number] [facility],[address], [place], [address], [facility] [employer] W[employer]MILL MECHANIC 08/15/2021 23:04:31 OBGyn Episode Ob Episode Information Episode Created Date Number of Fetuses Patient Bloodtype Patient rh Status Prepregnancy Weight lbs Domestic Partner Domestic Partner Phone Father Name Technical Professional Status 08/05/19 21 1 CLOSED Fetus Data First Name Last Name Admitted to NICU Weight (g) Sex Living Outcome Pediatric Complications Fetus ID Race Codes Race Delivery Type 4139.02 7 M Full Term [id number] Eliel Calculation Initial Eliel Date Initial Exam Date Initial Exam Provider Initial Ultrasound Date Last Menstrual Period Date Ultra Sound Weeks Gestation 0 Eighteen To Twenty Week Eliel Update Ultra Sound Date Fundal Height At Umbil Quickening Date Ultra Sound Latest Weeks Gestation Final Eliel Confirmed By Final Eliel Confirmed Date Final Eliel Date Ultra Sound Latest Days Gestation 0 0 Menstrual History Last Menstrual Date Menses Monthly On Bcp Conception Prior Menses Frequency Hcg Plus Date Menarche Onset Age Delivery Information Delivery Date Delivery Type Labor Anesthesia Weeks Gestation Incision Type Labor Labor Length Hrs Delivered By Post Complications Tubal Sterilization Discharge Date Comments 9 42 Discharge Information Feeding Method Contraceptive Method Maternal HG B and HCT Levels Ob Episode Information Episode Created Date Number of Fetuses Patient Bloodtype Patient rh Status Prepregnancy Weight lbs Domestic Partner Domestic Partner Phone Father Name Technical Professional Status 08/05/19 21 1 CLOSED Fetus Data First Name Last Name Admitted to NICU Weight (g) Sex Living Outcome Pediatric Complications Fetus ID Race Codes Race Delivery Type 4337.24 6704 M Full Term [id number] Eliel Calculation Initial Eliel Date Initial Exam Date Initial Exam Provider Initial Ultrasound Date Last Menstrual Period Date Ultra Sound Weeks Gestation 0 Eighteen To Twenty Week Eliel Update Ultra Sound Date Fundal Height At Umbil Quickening Date Ultra Sound Latest Weeks Gestation Final Eliel Confirmed By Final Eliel Confirmed Date Final Eliel Date Ultra Sound Latest Days Gestation 0 0 Menstrual History Last Menstrual Date Menses Monthly On Bcp Conception Prior Menses Frequency Hcg Plus Date Menarche Onset Age Delivery Information Delivery Date Delivery Type Labor Anesthesia Weeks Gestation Incision Type Labor Labor Length Hrs Delivered By Post Complications Tubal Sterilization Discharge Date Comments 3 42 Discharge Information Feeding Method Contraceptive Method Maternal HG B and HCT Levels Ob Episode Information Episode Created Date Number of Fetuses Patient Bloodtype Patient rh Status Prepregnancy Weight lbs Domestic Partner Domestic Partner Phone Father Name Technical Professional Status 08/05/19 21 1 CLOSED Fetus Data First Name Last Name Admitted to NICU Weight (g) Sex Living Outcome Pediatric Complications Fetus ID Race Codes Race Delivery Type 3572.03 7 F Full Term [id number] Eliel Calculation Initial Eliel Date Initial Exam Date Initial Exam Provider Initial Ultrasound Date Last Menstrual Period Date Ultra Sound Weeks Gestation 0 Eighteen To Twenty Week Eliel Update Ultra Sound Date Fundal Height At Umbil Quickening Date Ultra Sound Latest Weeks Gestation Final Eliel Confirmed By Final Eliel Confirmed Date Final Eliel Date Ultra Sound Latest Days Gestation 0 0 Menstrual History Last Menstrual Date Menses Monthly On Bcp Conception Prior Menses Frequency Hcg Plus Date Menarche Onset Age Delivery Information Delivery Date Delivery Type Labor Anesthesia Weeks Gestation Incision Type Labor Labor Length Hrs Delivered By Post Complications Tubal Sterilization Discharge Date Comments 1 42 Discharge Information Feeding Method Contraceptive Method Maternal HG B and HCT Levels
--- OUTSIDE RECORDS SUMMARY | 2023-06-06 15:38 | XMS_ITS | Encounter Summary ---
Author Name Unknown Organization [facility] Address [address] [place] [id number] Care Team Providers Care Acid Pumper Name Role Phone Kwan De La Cruz MD Primary Care Provider [phone] Claudette Retana MD Unavailable Kwan De La Cruz MD Unavailable [phone] Mechelle Mtz APRN CLAIMS ADMINISTRATOR Unavailable + Kwan De La Cruz MD Unavailable [phone] Mechelle Mtz ASSISTANT FRONT DESK MANAGER CLAIMS ADMINISTRATOR Unavailable + Mechelle Mtz APRN CLAIMS ADMINISTRATOR Unavailable + Claudette Retana MD Unavailable Encounter Details Date Type Department Care Team (Late st Contact Info) Description 05/01/2021 [facility] [address] [phone] Ginette Padilla, ANGELO Social History Tobacco Use Types Packs/Day Years Used Date Smoking Tobacco: Never Smokeless Tobacco: Never Alcohol Use Standard Drinks/Week Comments Yes 0 (1 standard drink = 0.6 oz pur e alcohol) occassional PHQ-2 Answer Date Recorded PHQ-2 Score 0 04/28/2021 Sex and Gender Information Value Date Recorded Sex Assigned at Female 04/21/2021 9:03 AM TONGUE LINING STITCHER Gender Identity Female 04/21/2021 9:03 AM TONGUE LINING STITCHER Sexual Orientation Not on file COVID-19 Exposure Response Date Recorded In the last month, have you been in contact with someone who was confirmed or suspected to have Coronavirus / COVID-19? No / Unsure 04/28/2021 1:37 PM TONGUE LINING STITCHER documented as of this encounter Plan of Treatment Upcoming Encounters Date Type Department Care Team (Late st Contact Info) Description 11/14/2023 10:30 AM CDT Office Visit [address] [phone] Claudette Retana MD [address] [place] [phone] documented as of this encounter Visit Diagnoses Not on filedocumented in this encounter Care Teams Acid Pumper Relationship Specialty Start [place] [address] [place] [address] PCP - General Family Practice 02/17/18 Claudette Retana MD [address] [place] [address] Assigned Surgical Provider 03/11/20 10/26/22 [place] [address] [place] [address] Assigned PCP 01/29/21 05/27/21 Mechelle Mtz APRN CLAIMS ADMINISTRATOR [facility] [address] [address] Assigned PCP 05/28/21 07/29/21 [place] [address] [place] [address] Assigned PCP 07/30/21 03/09/22 Mechelle Mtz APRN CLAIMS ADMINISTRATOR [facility] [address], [place] [phone] Assigned PCP 03/10/22 05/04/22 Mechelle Mtz APRN CLAIMS ADMINISTRATOR [facility] [address], [place] [phone] Assigned PCP 07/14/22 01/25/23 Claudette Retana MD [address] [place] [id number] Assigned Surgical Provider 11/17/22 documented as of this encounter
--- OUTSIDE RECORDS SUMMARY | 2023-06-06 15:38 | XMS_ITS | Clinical Summary ---
Author Name Unknown Organization [facility] Address [place], [place] [address] Care Team Providers Care Clay Grinder Name Role Phone Colby Chakraborty Unavailable [phone] Vikas Barajas MD Unavailable Kory Vang MD Primary Care Provide r Allergies No known active allergies Medications Medication Sig Dispensed Refills Start Date End Date Status aspirin 325 mg tabletIndications:Ac bill CVA (cerebrovascular accident) (HC) Take 1 tablet by mouth once daily with a meal. 100 tablet 0 02/21/2016 Active ibuprofen (ADVIL) 200 mg tablet Take 1 tablet by mouth 3 times daily with meals. 0 05/16/2016 Active ACETAMINOPHEN/DIPHEN HYDRAMINE (TYLENOL PM ORAL) Take 1 tablet by mouth at bedtime. Pt. 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 Acute CVA (cerebrovascular accident) 02/19/2016 Expressive aphasia 02/19/2016 Generalized weakness 02/19/2016 Chest pain 11/14/2010 GERD (gastroesophageal reflux disease) 1 Immunizations Name Administration Dates Next Due COVID-19 vaccine (Pfizer-Bio NTech 30mcg/0.3mL) PF, MDV 03/16/2021,08/13/2020,07/23/2020 Influenza RIV4 (Age 18+ Year s) PRESERV FREE 03/15/2021,01/26/2020,03/04/2019 Influenza Virus, Unspecified 01/29/2011 Influenza, IIV3 (Age >=3 years) 04/01/2013,02/03 Influenza, IIV4 02/20/2018, 7,03/15/2016,2015,04/05/2014 Tdap 06/22/2019,06/30/2010 Zoster (Shingrix-RZV, recombinant) 06/05/2018, Zoster (Zostavax-ZVL, live) 05/11/2016 Family History Medical History Relation Name Comments Diabetes Brother 1 Good Health Brother 2 Good Health Brother 3 Good Health Brother 4 Good Health Brother 5 Heart murmur Brother 6 Good Health Daughter Diabetes Father Kidney failure Father Diabetes Mother Good Health Son 1 Good Health Son 2 Relation Name Status Comments Brother 1 Alive Brother 2 Alive Brother 3 Alive Brother 4 Alive Brother 5 Alive Brother 6 Alive Daughter Alive Father Alive Mother Alive Son 1 Alive Son 2 Alive Social History Tobacco Use Types Packs/Day Years Used Date Smoking Tobacco: Never Smokeless Tobacco: Never Tobacco Cessation:Counseling Given: Yes Alcohol Use Standard Drinks/Week Comments Yes 0 (1 standard drink = 0.6 oz pur e alcohol) rarely Social Connections Answer Date Recorded Frequency of Communication with Friends and Fami ly Not on file 05/20/2021 Financial Resource Strain Answer Date R ecorded Difficulty of Paying Living Expenses Not on file 05/20/2021 Difficulty of Paying Living Expenses Not on file 05/20/2021 Sex and Gender Information Value Date Recorded Sex Assigned at Not on file Gender Identity Not on file Sexual Orientation Not on file Obstetrics History Last Filed Vital Signs Vital Sign Reading Time Taken Comments Blood Pressure 128/80 12/19/2021 2:30 PM CDT Pulse 72 12/19/2021 2:30 PM CDT Temperature 36.4 ??C (97.5 ??F) 09/27/2016 6:44 AM CD T Respiratory Rate 11 09/27/2016 11:45 AM CDT Oxygen Saturation 99% 09/27/2016 12:15 PM CDT Inhaled Oxygen Concentration - - Weight 115 kg (253 lb 9.6 oz) 12/19/2021 2:30 PM CDT Height 172.7 cm (5' 8) 12/19/2021 2:30 PM CDT Body Mass Index 38.56 12/19/2021 2:30 PM CDT Plan of Treatment Upcoming Encounters Date Type Department Care Team (Late st Contact Info) Description 06/12/2023 3:00 PM MONOMER RECOVERY SUPERVISOR Ancillary Procedure [facility] Rodriguez [address] [place] [address] [address] [facility] [place] [address] Health Maintenance Due Date Last Done Comments Depression screening for age 12+ 1972 HIV for age 15-65 11/02/1975 Hepatitis C screening for age 18-79 1978 Colonoscopy through age 75 2005 Mammogram for age 45-75 2005 Lipids for age 45-75 09/17/2021 09/17/2016, 06/21/2016, 02/20/2016 BMI (ht and wt on same day) for age 18+ 12/19/2022 12/19/2021, 09/26/2020, 11/12/2019, Additional history exists COVID-19 vaccine series (2022- season) 2023 11/07/2021, 03/16/2021, 08/13/2020, Additional history exists Influenza for age 50-64 01/18/2023 03/15/20, 01/26/2020, 03/04/2019, Additional history exists Pap test for age 21-65 02/19/2026 02/19/2023, 2022 Tetanus booster 06/22/2029 06/22/2019, 06/30/2010 Zoster (shingles) series for age 50+ Completed 06/05/2018, 04/03/2018, 05/11/2016 Tdap Completed 06/22/2019, 06/30/2010 Pneumococcal series for age 6-64 Aged Out No longer eligible based on patient's age to complete this topic Advance Directives Latest Code Status on File Code Status Date Activated Date Inactivated Comments Full Code 09/27/2016 6:23 AM 09/27/2016 3:38 PM Code Status History Code Status Date Activated Date Inactivated Comments Full Code 02/20/2016 1:01 AM 02/21/2016 6:12 PM Question Answer Comments Code Status Discussion: Per Existing Order Full Code 11/14/2010 3:28 AM 11/14/2010 5:18 PM Care Teams Clay Grinder Relationship Specialty [place] [address] [place] [phone] PCP - General Internal Medicine 05/10/23 Colby Chakraborty PA [address] [address] [place] [phone] Cardiology - EP Cardiovascular Disease 11/07/19 Vikas Barajas MD [address] [address] [place] [address] Cardiology - EP Cardiovascular Disease 11/02/16
--- OUTSIDE RECORDS SUMMARY | 2023-06-06 15:38 | XMS_ITS | Encounter Summary ---
Author Name Unknown Organization [place] Address [address] [place] [address]. [place] [address] Care Team Providers Care Oracle Dba Name Role Phone Kwan De La Cruz MD Primary Care Provider [phone] Mechelle Mtz APRN CHANNEL LAYER Unavailable + Reason for Visit * Reason Comments Skin Check FBSE. Area of concer n: brown patch right cheek. History of NMSC. Encounter Details Date Type Department Care Team (Late st Contact Info) Description 11/09/2022 10:45 AM CDT Office Visit [address] [address] Claudette Retana MD [address] [place] [id number] History of nonmelanoma skin cancer (Primary Dx); Lentigo; Neoplasm of unspecified behavior of bone, soft tissue, and skin; Neoplasm of uncertain behavior of skin Social History Tobacco Use Types Packs/Day Years Used Date Smoking Tobacco: Never Smokeless Tobacco: Never Alcohol Use Standard Drinks/Week Comments Yes 0 (1 standard drink = 0.6 oz pur e alcohol) occassional PHQ-2 Answer Date Recorded PHQ-2 Score 0 11/09/2022 Sex and Gender Information Value Date Recorded Sex Assigned at Female 04/21/2021 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 No / Unsure 11/09/2022 10:11 AM CDT documented as of this encounter Patient Instructions * Patient Instructions* Claudette Retana MD - 11/09/2022 10:45 AM CDT Images from the original note were not included. Recommend [facility] also known as [facility] dermatology in [facility] Dermatology specialists or [facility] skin Dermatology consultants in [facility] Patient Education Checking for Skin Cancer You can find cancer early by checking your skin each month. There are 3 kinds of skin cancer. They are melanoma, basal cell carcinoma, and squamous cell carcinoma. Doing monthly skin checks is the best way to find new connelly or skin changes. Follow the instructions below for checking your skin. The ABCDEs of checking moles for melanoma Check your moles or growths for signs of melanoma using ABCDE: Asymmetry: the sides of the mole or growth don???t match Border: the edges are ragged, notched, or blurred Color: the color within the mole or growth varies Diameter: the mole or growth is larger than 6 mm (size of a pencil eraser) Evolving: the size, shape, or color of the mole or growth is changing (evolving is not shown in theimages below) Checking for other types of skin cancer Basal cell carcinoma or squamous cell carcinoma have symptoms such as: A spot or mole that looks different from all other connelly on your skin Changes in how an area feels, such as itching, tenderness, or pain Changes in the skin's surface, such as oozing, bleeding, or scaliness A sore that does not heal New swelling or redness beyond the border of a mole Who???s at risk? Anyone can get skin cancer. But you are at greater risk if you have: Fair skin, light-colored hair, or light-colored eyes Many moles or abnormal moles on your skin A history of sunburns from sunlight or tanning beds A family history of skin cancer A history of exposure to radiation or chemicals A weakened immune system If you have had skin cancer in the past, you are at risk for recurring skin cancer. How to check your skin Do your monthly skin checkups in front of a full-length mirror. Check all parts of your body, including your: Head (ears, face, neck, and scalp) Torso (front, back, and sides) Arms (tops, undersides, upper, and lower armpits) Hands (palms, backs, and fingers, including under the nails) Buttocks and genitals Legs (front, back, and sides) Feet (tops, soles, toes, including under the nails, and between toes) If you have a lot of moles, take digital photos of them each month. Make sure to take photos both up close and from a distance. These can help you see if any moles casino change attendant time. Most skin changes are not cancer. But if you see any changes in your skin, call your doctor right away. Only he or she can diagnose a problem. If you have skin cancer, seeing your doctor can be the first step toward getting the treatment that could save your life. [employer] last reviewed this educational content on 08/18/2018 ?? [id number] [employer]. [address] [place] [address]. All rights reserved. This information is not intended as a substitute for professional medical care. Always follow your healthcare professional's instructions. When should I call my doctor? If you are worsening or not improving, please, contact us or seek urgent care as noted below. Who should I call with questions (adults)? [facility] (adult and pediatric): [phone] [facility] (adult): [phone] For urgent needs outside of business hours call the [facility] at [phone] and ask for thedermatology resident disease intervention specialist to be paged If this is a medical emergency and you are unable to reach an ER, Call 497 Who should I call with questions (pediatric)? [facility]- Pediatric Dermatology Dr. Ale Kirk, Dr. Osito Bowling, Dr. Geena Mccoy, Cheyenne Valdez, [place], Dr. Marjorie Hart, Dr. Maia Hernandez & Dr. Kory Daugherty Non-urgent nurse triage line; [phone]- Elena and Loree RN Care Coordinators Elvia (Sock Lining Examiner/Complex Electrical Laboratory Technician) [phone] If you need a prescription refill, please contact your pharmacy. Refills are approved or denied by our Physicians during normal business hours, Saturday through Fridays Per office policy, refills will not be granted if you have not been seen within the past year (or sooner depending on your child's condition) Scheduling Information: Pediatric Appointment Scheduling and Call Center Radiology Scheduling- [phone] Sedation Unit Scheduling- [phone] [place] Scheduling- General [phone]; Pediatric Dermatology [phone] Main Pre Sales Architect Services: [phone] Czech: [phone] [place] Citizen: [phone] Hmong/Alexey/Kenyan: [phone] Preadmission Nursing Department (Fax all pre-operative paperwork to this number) For urgent matters arising during evenings, weekends, or holidays that cannot wait for normal business hours please call and ask for the dermatology resident disease intervention specialist to be paged. Wound Care After a Biopsy What is a skin biopsy? A skin biopsy allows the doctor to examine a very small piece of tissue under the microscope to determine the diagnosis and the best treatment for the skin condition. A local anesthetic (numbing medicine) is injected with a very small needle into the skin area to be tested. A small piece of skin istaken from the area. Sometimes a suture (stitch) is used. What are the risks of a skin biopsy? I will experience scar, bleeding, swelling, pain, crusting and redness. I may experience incompleteremoval or recurrence. Risks of this procedure are excessive bleeding, bruising, infection, nerve damage, numbness, thick (hypertrophic or keloidal) scar and non-diagnostic biopsy. How should I care for my wound for the first 24 hours? Keep the wound dry and covered for 24 hours If it bleeds, hold direct pressure on the area for 15 minutes. If bleeding does not stop, call us or go to the emergency room Avoid strenuous exercise the first 1-2 days or as your doctor instructs you How should I care for the wound after 24 hours? After 24 hours, remove the bandage You may bathe or shower as normal If you had a scalp biopsy, you can shampoo as usual and can use shower water to clean the biopsy site daily Clean the wound once a day with gentle soap and water Do not scrub, be gentle Apply white petroleum/Vaseline???after cleaning the wound with a cotton swab or a clean finger, andkeep the site covered with a Bandaid???/bandage. Bandages are not necessary with a scalp biopsy If you are unable to cover the site with a Bandaid???/bandage, re-apply ointment 2-3 times a day tokeep the site moist. Moisture will help with healing Avoid strenuous activity for first 1-2 days Avoid lakes, qiu, pools, and oceans until the stitches are removed or the site is healed How do I clean my wound? Wash hands thoroughly with soap or use hand pharmacy account director before all wound care Clean the wound with gentle soap and water Apply white petroleum/Vaseline??? to wound after it is clean Replace the Bandaid???/bandage to keep the wound covered for the first few days or as instructed byyour doctor If you had a scalp biopsy, warm shower water to the area on a daily basis should suffice What should I use to clean my wound? Cotton-tipped applicators (Qtips???) White petroleum jelly (Vaseline???). Use a clean new container and use Q-tips to apply. Bandaids??? as needed Gentle soap How should I care for my wound rodent exterminator? Do not get your wound dirty Keep up with wound care for one week or until the area is healed. A small scab will form and fall off by itself when the area is completely healed. The area will be red and will become pink in color as it heals. Sun protection is very important for how your scar will turn machine operator. Sunscreen with an SPF 30 or greater is recommended once the area is healed. You should have some soreness but it should be mild and slowly go away over several days. Talk to your doctor about using tylenol for pain, When should I call my doctor? If you have increased: Pain or swelling Pus or drainage (clear or slightly yellow drainage is ok) Temperature over 100F Spreading redness or warmth around wound When will I hear about my results? The biopsy results can take 2 weeks to come back. Your results will automatically release to [employer] before your provider has even reviewed them. The clinic will call you with the results, send you aMyChart message, or have you schedule a follow-up clinic or phone time to discuss the results. Contact our clinics if you do not hear from us in 2 weeks. Who should I call with questions? [facility]: [phone] [facility]: [phone] For urgent needs outside of business hours call the [facility] at [phone] and ask for thedermatology resident disease intervention specialist documented in this encounter Progress Notes * Claudette Retana MD - 11/09/2022 10:45 AM CDT [facility] Dermatology Note Encounter Date: Nov 09, 2022 Office Visit Dermatology Problem List: 0. NUB - left mid back, s/p bx 11/09/22 Last skin check: 11/09/22 1.??History of NMSC -??BCC, right lower cheek,??s/p Mohs 12/15/2015 2. History of stroke, several years ago 3.??History of benign biopsy -??BLK, left upper arm, s/p bx??08/28/18 -Lentigo, left nasal sidewall, s/p bx 04/28/21 ?? 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 Family history: Negative for melanoma. ?? Assessment & Plan: ?? # History of nonmelanoma skin cancer, no clinical evidence of recurrence. - ABCDEs: Counseled ABCDEs of melanoma: Asymmetry, Border (irregularity), Color (not uniform, changes in color), Diameter (greater than 6 mm which is about the size of a pencil eraser), and Evolving (any changes in preexisting moles). - Sun protection: Counseled SPF30+ sunscreen, UPF clothing, sun avoidance, tanning bed avoidance. - Recommended regular skin checks. ??# Solar lentigines on the right cheek. Benign nature was discussed. No further intervention required at this time. # Faint erythema-right clavicle. Resolved. # Neoplasm of unspecified behavior of the skin (D49.2) on the left mid back. - Skin colored fleshy papules grouped The differential diagnosis includes: flesh colored papules grouped - rosa elena syndrome or connective tissue nevus or shagreen patch - Photograph obtained. - See procedure note. Procedures Performed: - Shave biopsy procedure note, location(s): left mid back. After discussion of benefits and risks including but not limited to bleeding, infection, scar, incomplete removal, recurrence, and non-diagnostic biopsy, written consent and photographs were obtained. The area was cleaned with isopropyl alcohol. 0.5mL of 1% lidocaine with epinephrine was injected to obtain adequate anesthesia of lesion(s). Shave biopsy at site(s) performed. Hemostasis was achieved with aluminium chloride. Petrolatum ointment and a sterile dressing were applied. The patient tolerated the procedure and no complications were noted. The patient was provided with verbal and written post care instructions. Follow-up: 1 year(s) in-person, or earlier for new or changing lesions Staff and Scribe: Scribe Disclosure: I, Yesenia Mancini, am serving as a scribe to document services personally performed by this physician, Dr. Claudette Retana, based on data collection and the provider's statements to me. Provider Disclosure: The documentation recorded by the scribe accurately reflects the services I personally performed and the decisions made by me. Claudette Retana MD Field Sales Representative Department of Dermatology [facility] [place]: , [facility]: , CC: Skin Check (FBSE. Area of concern: brown patch right cheek. History of NMSC. ) HPI: Ms. Emily Caldera is a(n) 62 year old female who presents today as a return patient for a skin check. Pt reports noticing a brown patch on the right cheek which she is concerned with. Last seen 04/28/21 for a biopsy. At that time a punch biopsy was obtained on the left nasal sidewall. The results of the biopsy indicated that the lesion was a lentigo. Patient is otherwise feeling well, without additional skin concerns. Labs Reviewed: N/A Physical Exam: Vitals: There were no vitals taken for this visit. SKIN: Total skin excluding the undergarment areas was performed. The exam included the head/face, neck, both arms, chest, back, abdomen, both legs, digits and/or nails. Declines genital exam - Well healed scar at site of previous NMSC, no repigmentation or nodularity noted. -chicas oval on right cheek. -Skin colored fleshy papules grouped- left mid back - No other lesions of concern on areas examined. Medications: Current Outpatient Medications Medication ??? aspirin 325 MG tablet ??? hydrocortisone 2.5 % cream ??? naproxen (NAPROSYN) 500 MG tablet ??? rosuvastatin (CRESTOR) 5 MG tablet ??? tiZANidine (ZANAFLEX) 2 MG tablet No current facility-administered medications for this visit. Past Medical History: Patient Active Problem List Diagnosis ??? Cerebrovascular accident (CVA), unspecified mechanism (H) ??? Advanced directives, counseling/discussion ??? Obesity, unspecified obesity severity, unspecified obesity type ??? History of supraventricular tachycardia ??? Expressive aphasia ??? Generalized weakness ??? GERD (gastroesophageal reflux disease) ??? Hyperlipidemia ??? SVT (supraventricular tachycardia) (H) ??? Morbid obesity (H) ??? Non-melanoma skin cancer ??? History of nonmelanoma skin cancer Past Medical History: Diagnosis Date ??? History of nonmelanoma skin cancer ??? History of supraventricular tachycardia 02/21/2018 ??? Stroke (H) CC Claudette Retana MD [address] [place] [address] on close of this encounter. documented in this encounter Nursing Notes * Courtney Dodd CMA - 11/09/2022 10:45 AM CDT Emily Caldera's goals for this visit include: Chief Complaint Patient presents with ??? Skin Check FBSE. Area of concern: brown patch right cheek. History of NMSC. She requests these members of her care team be copied on today's visit information: PCP: Kwan De La Cruz Referring Provider: Claudette Retana MD [address] [address] There were no vitals taken for this visit. Do you need any medication refills at today's visit? No Courtney Dodd CMA on 11/09/2022 at 10:53 AM documented in this encounter Miscellaneous Notes * Result Encounter Note - Claudette Retana MD - 11/09/2022 10:45 AM CDT Dear Emily Caldera, We are writing to inform you of your test results that show inflammation around a hair follicle which can be rechecked next year. Thank you for taking the time to be seen in our dermatology clinic. If you have further questions or concerns, please contact the clinic(see phone number listed below). Sincerely, Claudette Retana MD Forestry And Wildlife Manager Department of Dermatology [facility] [place]: , [facility]: , documented in this encounter Plan of Treatment Upcoming Encounters Date Type Department Care Team (Late st Contact Info) Description 11/14/2023 10:30 AM CDT Office Visit [address] [address] Claudette Retana MD [address] [facility] [address] [place] [address] documented as of this encounter Procedures Procedure Name Priority Date/Time Associated Diagnosis Comments DERMATOPATHOLOGY EXAM Routine 11/09/2022 10:54 AM CDT Neoplasm of uncertain behavior of skin documented in this encounter Results * Dermatological Path Order and Indications (11/09/2022 10:54 AM CDT) Case Report Surgical Pathology Report ? Case: [id number] ? Authorizing Provider: ??Claudette Retana MD ? Collected: ? 11/09/2022 10:54 AM ? Ordering Location: ? [facility] ?? Received: ?11/09/2022 04:36 PM ? [place] ? Pathologist: ? Jorge Alberto De La Torre MD ? Specimen: ?Skin, left mid back ? 11/14/2022 3:31 PM CDT [facility] Final Diagnosis A(1). Skin, left mid back, shave: - Mild spongiotic dermatitis and lymphohistiocytic inflammation - (see comment) 11/14/2022 3:31 PM CDT [facility] Comment Interpretation of this specimen is limited by artefacts. While not entirely diagnostic and little dermis is seen, the presence of lymphohistiocytic perifollicular inflammation may raise the possibility of a ruptured folliculitis. Clinical correlation and follow up are recommended, with additional sampling if the lesion persists or recurs. 11/14/2022 3:31 PM CDT [facility] Clinical Information The patient is a 62 year old female 11/14/2022 3:31 PM CDT [facility] Gross Description A(1). Skin, left mid back: The specimen is received in formalin with proper patient identification, labeled left mid back. The specimen consists of a 0.9 x 0.7 cm skin shave containing a a chicas-white, smooth skin surface. The resection margin is inked blue and the specimen is sectioned and submitted in A1. 11/14/2022 3:31 PM CDT [facility] Microscopic Description The specimen exhibits mild epidermal hyperplasia with focal spongiosis and focal apparent interface changes and a lymphohistiocytic inflammatory infiltrate which appear centered around an hair follicle. EVG stain was attempted, but little dermis is seen for a definitive evaluation. 11/14/2022 3:31 PM CDT [facility] Performing Labs The technical component of this testing was completed at [facility] 11/14/2022 3:31 PM T [facility] Skin - Shave SPECIMEN FROM SKIN / Unknown 11/09/2022 10:54 AM CDT 11/09/2022 4:36 PM CDT Claudette NICE - [facility] Specialty Lab [address] [facility] [address], [address] [place] [address], [facility] [phone] [facility] [address] [facility] [address] 1[address] [place] [address] documented in this encounter Visit Diagnoses Diagnosis History of nonmelanoma skin cancer- Primary Personal history of other malignant neoplasm of skin Lentigo Other dyschromia Neoplasm of unspecified behavior of bone, soft tissue, and skin Neoplasm of uncertain behavior of skin documented in this encounter Care Teams Oracle Dba Relationship Specialty [place] [address] [place] [address] PCP - General Family Practice 02/17/18 Mechelle Mtz APRN CHANNEL LAYER [facility] [place] [address], [place] [address] Assigned PCP 07/14/22 01/25/23 documented as of this encounter
--- OUTSIDE RECORDS SUMMARY | 2023-06-06 15:38 | XMS_ITS | Encounter Summary ---
Author Name Unknown Organization [place] Address [address] [place] [address] Care Team Providers Care County Auditor Name Role Phone Kwan De La Cruz MD Primary Care Provider [phone] Claudette Retana MD Unavailable Kwan De La Cruz MD Unavailable [phone] Mechelle Mtz APRN LEGAL TRANSCRIBER Unavailable + Kwan De La Cruz MD Unavailable [phone] Mechelle Mtz SENIOR PRODUCT ANALYST LEGAL TRANSCRIBER Unavailable + Mechelle Mtz APRN LEGAL TRANSCRIBER Unavailable + Claudette Retana MD Unavailable Encounter Details Date Type Department Care Team (Late st Contact Info) Description 05/01/2021 [facility] Medical Advice [address] [address] Carmen Zuniga Social History Tobacco Use Types Packs/Day Years Used Date Smoking Tobacco: Never Smokeless Tobacco: Never Alcohol Use Standard Drinks/Week Comments Yes 0 (1 standard drink = 0.6 oz pur e alcohol) occassional PHQ-2 Answer Date Recorded PHQ-2 Score 0 04/28/2021 Sex and Gender Information Value Date Recorded Sex Assigned at Female 04/21/2021 9:03 AM ENDOSCOPE TECHNICIAN Gender Identity Female 04/21/2021 9:03 AM ENDOSCOPE TECHNICIAN Sexual Orientation Not on file COVID-19 Exposure Response Date Recorded In the last month, have you been in contact with someone who was confirmed or suspected to have Coronavirus / COVID-19? No / Unsure 04/28/2021 1:37 PM ENDOSCOPE TECHNICIAN documented as of this encounter Plan of Treatment Upcoming Encounters Date Type Department Care Team (Late st Contact Info) Description 11/14/2023 10:30 AM CDT Office Visit [address] [phone] Claudette Retana MD [address] [place] [address] documented as of this encounter Visit Diagnoses Not on filedocumented in this encounter Care Teams County Auditor Relationship Specialty Start [place] [address] [place] [address] PCP - General Family Practice 02/17/18 Claudette Retana MD [address] [place] [address] Assigned Surgical Provider 03/11/20 10/26/22 [place] [address] [place] [address] Assigned PCP 01/29/21 05/27/21 Mechelle Mtz APRN LEGAL TRANSCRIBER [facility] [place] [address] [place] [address] Assigned PCP 05/28/21 07/29/21 [place] [address] [place] [address] Assigned PCP 07/30/21 03/09/22 Mechelle Mtz APRN LEGAL TRANSCRIBER [facility] [place] [address] [place] [phone] Assigned PCP 03/10/22 05/04/22 Mechelle Mtz APRN LEGAL TRANSCRIBER [facility] [place] [address] [place] [phone] Assigned PCP 07/14/22 01/25/23 Claudette Retana MD [address] [place] [address] Assigned Surgical Provider 11/17/22 documented as of this encounter
--- OUTSIDE RECORDS SUMMARY | 2023-06-06 15:38 | XMS_ITS | Clinical Summary ---
Author Name Unknown Organization [facility] Address [address] [place] [address] Care Team Providers Care Ventilator Specialist Name Role Phone Kwan De La Cruz MD Primary Care Provider [phone] Claudette Retana MD Unavailable Allergies Active Allergy Reactions Criticality Noted Date Comments No Known Drug Allergy 06/13/2010 Medications Medication Sig Dispensed Refills Start Date End Date Status aspirin 325 MG tabletIndications:Cer ebrovascular accident (CVA), unspecified mechanism (H) Take 1 tablet (325 mg) by mouth daily 180 tablet 3 03/15/2016 Active Active Problems Problem Noted Date Diagnosed Date History of nonmelanoma skin cancer 03/24/2021 Non-melanoma skin cancer 02/05/2020 Morbid obesity 01/26/2020 History of supraventricular tachycardia 02/22/20 18 Hyperlipidemia 11/02/2016 SVT (supraventricular tachycardia) 09/26/2016 Obesity, unspecified obesity severity, unspecified obesity type 06/18/2016 Advanced directives, counseling/discussion 03/15 Overview: Discussed Advance Directive planning with patient; information given to patient to review. Kelsie Best LPN Cerebrovascular accident (CVA), unspecified mech anism 02/28/2016 Expressive aphasia 02/19/2016 Generalized weakness 02/19/2016 GERD (gastroesophageal reflux disease) 1 Resolved Problems Problem Noted Date Diagnosed Date Resolved Date Cervical radiculopathy 01/28/202005/27 Right hip pain 02/03/2019 08/07/2019 Chronic pain of right knee 07/17/2018 0 09/09/2018 Immunizations Name Administration Dates Next Due Influenza Vaccine 18-64 (Flublok) 03/15/2021,12/2019,03/04/2019 Influenza Vaccine >6 months,quad, PF 02/20/2018, 03/30/2017,03/15/2016 TDAP (Adacel,Boostrix) 06/22/2019 TDAP Vaccine (Adacel) 06/30/2010 Zoster recombinant adjuvanted (SHINGRIX) 019,04/03/2018 Zoster vaccine, live 05/11/2016 Family History Medical History Relation Comments Alcohol/Drug Father smoker Respiratory Father Arthritis Mother Diabetes Mother Relation Status Comments Brother 1 Alive Brother 2 Alive Brother 3 Alive Brother 4 Alive Brother 5 Alive Brother 6 Alive Brother 7 Alive Daughter Alive Father Alive Maternal Grandfather Maternal Grandmother Mother Alive Paternal Grandfather Paternal Grandmother Son 1 Alive Son 2 Alive Social History Tobacco Use Types Packs/Day Years Used Date Smoking Tobacco: Never Smokeless Tobacco: Never Alcohol Use Standard Drinks/Week Comments Yes 0 (1 standard drink = 0.6 oz pur e alcohol) occassional PHQ-2 Answer Date Recorded PHQ-2 Score 0 11/09/2022 Adolescent Education Answer Date Record ed Getting School Help Needed Not on file 03/06 Sex and Gender Information Value Date Recorded Sex Assigned at Female 04/21/2021 9:03 AM BENCH LATHE OPERATOR Gender Identity Female 04/21/2021 9:03 AM BENCH LATHE OPERATOR Sexual Orientation Not on file Last Filed Vital Signs Vital Sign Reading Time Taken Comments Blood Pressure 116/80 05/21/2020 9:28 AM BENCH LATHE OPERATOR Pulse 51 05/21/2020 9:28 AM BENCH LATHE OPERATOR Temperature 36.1 ??C (97 ??F) 05/21/2020 9:28 AM BENCH LATHE OPERATOR Respiratory Rate 16 05/21/2020 9:28 AM BENCH LATHE OPERATOR Oxygen Saturation 96% 05/21/2020 9:28 AM BENCH LATHE OPERATOR Inhaled Oxygen Concentration - - Weight 112.3 kg (247 lb 9.6 oz) 05/21/2020 9:28 AM BENCH LATHE OPERATOR Height 171.5 cm (5' 7.5) 03/24/2019 10 :42 AM BENCH LATHE OPERATOR Body Mass Index 38.21 03/24/2019 10:42 AM BENCH LATHE OPERATOR Plan of Treatment Upcoming Encounters Date Type Department Care Team (Late st Contact Info) Description 11/14/2023 10:30 AM CDT Office Visit [facility] [address] [place] [address] Claudette Retana MD [address] [facility] [address] [place] [address] Health Maintenance Due Date Last Done Comments ANNUAL REVIEW OF HM ORDERS 1960 CT COLONOGRAPHY 1960 FIT 1960 FLEX SIG 1960 sDNA (Cologuard) 1960 HIV SCREENING 11/02/1975 MAMMO SCREENING 07/29/2020 07/29/2018, 05/2018, 07/18/2018, Additional history exists RSV VACCINE ( & 60+) (1 - 1-dose 60+ series) 2020 ADVANCE CARE PLANNING 03/15/2021 03/15/2016 YEARLY PREVENTIVE VISIT 08/15/2022 08/16/19 22, 08/08/2020, 06/22/2019, Additional history exists COLONOSCOPY 01/07/2023 01/07/2018, 12/19, 2010 COLORECTAL CANCER SCREENING 01/07/2023 COVID-19 Vaccine ( season) 2023 02/13/2022, 11/07/2021, 03/16/2021, Additional history exists INFLUENZA VACCINE (#1) 2023 , 03/07/2022, 03/15/2021, Additional history exists HPV TEST 04/25/2023 04/25/2018, 11/2017, 04/01/2013, Additional history exists PAP 04/25/2023 04/25/2018, 11/2017, 04/01/2013, Additional history exists PHQ-2 (once per calendar year) 2023 11/09/2022, 04/28/2021, 09/18/2019, Additional history exists LIPID 02/25/2024 02/24/2019, 10/0 08/2017, 06/11/2016 DTAP/TDAP/TD IMMUNIZATION (3 - Td or Tdap) 06/22/2029 06/22/2019, 06/30/2010 HEPATITIS C SCREENING Completed 06/11/2016 ZOSTER IMMUNIZATION Completed 06/05/2018, 04/03/2018, 05/11/2016 HPV IMMUNIZATION Aged Out No longer e ligible based on patient's age to complete this topic IPV IMMUNIZATION Aged Out No longer e ligible based on patient's age to complete this topic MENINGITIS IMMUNIZATION Aged Out No l onger eligible based on patient's age to complete this topic Pneumococcal Vaccine: Pediatrics (0 to 5 Years) and At-Risk Patients (6 to 64 Years) Aged Out No longer eligible based on patient's age to complete this topic RSV MONOCLONAL ANTIBODY Aged Out No l onger eligible based on patient's age to complete this topic Care Teams Ventilator Specialist Relationship Specialty [place] [address] [place] [address] PCP - General Family Practice 02/17/18 Claudette Retana MD 420 [facility] [address] [place], [place] [address] Assigned Surgical Provider 11/17/22
--- OUTSIDE RECORDS SUMMARY | 2023-06-06 15:38 | XMS_ITS | Referral Summary ---
Author Name Unknown Organization [facility] Address [address] [place] [address] Care Team Providers Care Erp Programmer Name Role Phone Kwan De La Cruz MD Primary Care Provider [phone] Claudette Retana MD Unavailable Allergies Active Allergy [...] adjuvanted (SHINGRIX) 019,04/03/2018 Zoster vaccine, live 05/11/2016 Social History Tobacco Use Types Packs/Day Years [...] Sex Assigned at Female 04/21/2021 9:03 AM SUPERVISOR OF GUIDANCE AND TESTING Gender Identity Female 04/21/2021 9:03 AM SUPERVISOR OF GUIDANCE AND TESTING Sexual Orientation Not on file Last Filed Vital Signs Vital Sign Reading Time Taken Comments Blood Pressure 116/80 05/21/2020 9:28 AM SUPERVISOR OF GUIDANCE AND TESTING Pulse 51 05/21/2020 9:28 AM SUPERVISOR OF GUIDANCE AND TESTING Temperature 36.1 ??C (97 ??F) 05/21/2020 9:28 AM SUPERVISOR OF GUIDANCE AND TESTING Respiratory Rate 16 05/21/2020 9:28 AM SUPERVISOR OF GUIDANCE AND TESTING Oxygen Saturation 96% 05/21/2020 9:28 AM SUPERVISOR OF GUIDANCE AND TESTING Inhaled Oxygen Concentration - - Weight 112.3 kg (247 lb 9.6 oz) 05/21/2020 9:28 AM SUPERVISOR OF GUIDANCE AND TESTING Height 171.5 cm (5' 7.5) 03/24/2019 10 :42 AM SUPERVISOR OF GUIDANCE AND TESTING Body Mass Index 38.21 03/24/2019 10:42 AM SUPERVISOR OF GUIDANCE AND TESTING Plan of Treatment Upcoming Encounters Date Type Department Care Team (Late st Contact Info) Description 11/14/2023 10:30 AM CDT Office Visit [address] [address] Claudette Retana MD 420 [facility] [address] [place] [address] Care Teams Erp Programmer Relationship Specialty [place] [address] [place] [address] PCP - General Family Practice 02/17/18 Claudette Retana MD [address] [address] Assigned Surgical Provider 11/17/22
--- OUTSIDE RECORDS SUMMARY | 2023-06-06 15:38 | XMS_ITS | Encounter Summary ---
Author Name Unknown Organization [facility] Address [address] [place] [address] Care Team Providers Care Electrocardiogram Technician Name Role Phone Murali Hickey PA-C Primary Care Provider Kwan De La Cruz MD Primary Care Provider [phone] Kwan De La Cruz MD Unavailable [phone] Kwan De La Cruz MD Unavailable [phone] Brandie Jones CLERICAL WAREHOUSE WORKER TUFTING CREELER Unavailable Kwan De La Cruz MD Unavailable [phone] Mechelle Mtz APRN TUFTING CREELER Unavailable + Claudette Retana MD Unavailable Miguelito Membreno MD Unavailable [phone] Dayna Guzman CLERICAL WAREHOUSE WORKER CNM Unavailable Unava Adrian Navarrete DPM Unavailable [phone] Kwan De La Cruz MD Unavailable [phone] Mechelle Mtz APRN TUFTING CREELER Unavailable + Kwan De La Cruz MD Unavailable [phone] Mechelle Mtz APRN TUFTING CREELER Unavailable + Mechelle Mtz APRN TUFTING CREELER Unavailable + Claudette Retana MD Unavailable Reason for Visit * Reason Onset Date Comments Outreach 01/15/2018 vip mammo att 1 Encounter Details Date Type Department Care Team (Late st Contact Info) Description 01/15/2018 Telephone [facility] [address] [place] [address] Murali Hickey PA-C [address] [place] [address] Outreach (vip mammo att 1 ) Social History Tobacco Use Types Packs/Day Years Used Date Smoking Tobacco: Never Smokeless Tobacco: Never Alcohol Use Standard Drinks/Week Comments Yes 0 (1 standard drink = 0.6 oz pur e alcohol) occassional Sex and Gender Information Value Date Recorded Sex Assigned at Female 04/21/2021 9:03 AM MEDICAL SCRIBE Gender Identity Female 04/21/2021 9:03 AM MEDICAL SCRIBE Sexual Orientation Not on file documented as of this encounter Miscellaneous Notes * Telephone Encounter - Priscilla Fatima - 01/15/2018 12:08 PM CDT 01/15/2018 Attempt 1 Contacted patient in regards to scheduling VIP mammogram Message on [employer] Patient is also due for - Comments: Outreach Local Intermodal Truck Driver Priscilla Fatima documented in this encounter Plan of Treatment Upcoming Encounters Date Type Department Care Team (Late st Contact Info) Description 11/14/2023 10:30 AM CDT Office Visit [address] [place] [address] Claudette Retana MD [address] [address] documented as of this encounter Visit Diagnoses Not on filedocumented in this encounter Additional Health Concerns Infection Onset Date Last Indicated Resolved Time Rule Out COVID-19 11/26/2019 11/26/2019 11/27/2019 7:57 PM CDT documented as of this encounter Care Teams Electrocardiogram Technician Relationship Specialty Start Date End Date OppeMurali dsouza PA-C [address] [place] [address] PCP - General Family Practice 12/17/17 02/16/18 [place] [address] [place] [address] PCP - General Family Practice 02/17/18 [place] [address] [place] [address] PCP - Assigned PCP 03/04/16 07/22/18 [place] [address] [place] [address] Assigned PCP 03/04/16 10/25/18 Brandie Jones APRN TUFTING CREELER [address] [place] [address] Assigned PCP 10/26/18 03/14/19 [place] [address] [place] [address] Assigned PCP 03/15/19 03/05/20 Mechelle Mtz APRN TUFTING CREELER [facility] [address], [place] [address] Assigned PCP 03/06/20 01/28/21 Claudette Retana MD [address] [place] [address] [place] [address] Assigned Surgical Provider 03/11/2010/26/22 [place] [address] [facility] [address] [facility] [place] [address] Assigned Musculoskeletal Provider 03/11/20 08/27/20 Dayna Guzman APRN CNM Assigned OBGYN Provider 03/11/20 10/22/20 Adrian Montesinos DPM [address] [facility] [place] [address] Assigned Musculoskeletal Provider 08/28/20 10/22/20 [place] [address] [place] [address] Assigned PCP 01/29/21 05/27/21 Mechelle Mtz APRN TUFTING CREELER [facility] [place] [address] Assigned PCP 05/28/21 07/29/21 [place] [address] [place] [address] Assigned PCP 07/30/21 03/09/22 Mechelle Mtz APRN TUFTING CREELER [facility] [place] [address] Assigned PCP 03/10/22 05/04/22 Mechelle Mtz APRN TUFTING CREELER [facility] [address], [place] [address] Assigned PCP 07/14/22 01/25/23 Claudette Retana MD [address] [place] [address] Assigned Surgical Provider 11/17/22 documented as of this encounter
== END 2023-05-30 18:49 | disposition home or self-care (01) ==
LOC: NFLDREF 06-06 15:31
PROVIDERS: PCP Family Medicine; Referring Provider Family Medicine; Visit Provider Nurse Practitioner Family
DX: R30.0 Dysuria (principal); N39.0 Urinary tract infection, site not specified; R35.0 Frequency of micturition
CPT/HCPCS: 87086

== ENCOUNTER 2023-06-03 13:01 | Outpatient (CLI) | payer OTHER, MEDICARE, SELFPAY ==
--- NOTE | 2023-06-03 13:00 | CRLHL7_ITS ---
For Patients: As a result of the Cures Act, medical imaging exams and procedure reports are released immediately into your electronic medical record. You may view this report before your referring provider. If you have questions, please contact your health care provider. BILATERAL SCREENING MAMMOGRAM WITH COMPUTER-AIDED DETECTION AND TOMOSYNTHESIS TECHNIQUE: CC and MLO views were obtained. These mammographic images have been obtained using full-field digital technique. These mammographic images were interpreted with the benefit of computer-aided detection. Breast Tomosynthesis was used in this interpretation. COMPARISON FILM: 06/01/22, 03/03/21, 07/29/18. FINDINGS: There are scattered areas of fibroglandular density IMPRESSION: There is no radiographic evidence for malignancy. ASSESSMENT: BI-RADS Category 1: Negative RECOMMENDATION: Routine screening mammogram in 1 year. A lay language report of this examination will be provided to the patient. Kory Arambula M.D. Diagnostic Radiologist [email or web address] FRANKI/[email or web address] Transcribed: 5:09 p.leo elizabeth/Dictated by: Kory Arambula MD @ 06/05/2023 10:39:00 AM (Electronically Signed)
== END 2023-06-03 13:02 | disposition home or self-care (01) ==
LOC: MAMMO 13:02
PROVIDERS: PCP Family Medicine; Visit Provider Physician Assistant
DX: Z12.31 Encounter for screening mammogram for malignant neoplasm of breast (principal)
CPT/HCPCS: 77063; 77067

== ENCOUNTER 2023-06-25 10:17 | Outpatient (CLI) | payer MEDICARE, SELFPAY ==
--- OUTSIDE RECORDS SUMMARY | 2023-06-25 10:20 | XMS_ITS | Continuity of Care Document ---
Author Name Unknown Organization [facility] Address [address] [place] [address] Phone Care Team Providers Care Floor And Wall Applier Liquid Name Role Phone Manjula Perez MD Unavailable [...] Protein Dna Antibody, Single Strand Dna Antibody, Yocha Dehe Nuclear Antigen Antibodies Antinuclear Antibodies Advance Directives Directive Yes / No Effective Date File Name No Information Encounters Encounter Description Practice Location Reason(s) For Visit Diagnoses Date Provider Providers Copied on Encounter [facility], [address], [place], [address], [place] tel:[phone] [facility] , No Information Chris Fair. [facility] [address], [place], [address], [place]. tel:[phone] Office/Outpa tient Visit, New [facility], [address], [place], [address], [place] tel:[phone] [facility] , Abnormal Lab Study (chief complaint) Musculoske letal pain (chief complaint) Raised antibody titerMyalgia Chris Fair. [facility] [address], [place], [address], [place]. tel:[phone] Referring Provider: Manjula Amador, [facility] [address], [place], [address]. tel:[phone] Family History Family Member Type Diagnosis Age At Onset Mother Problem Arthritis Mother Problem Thyroid disorder Maternal grandmother Problem Arthritis Immunizations Vaccine Date Status Comments COVID-19 Pfizer administered Source: Othe r Provider COVID-19 Pfizer administered Source: Othe r Provider Payers Payer name Insurance type Covered alliance party ID Authorcarlos flores(s) [facility] [id number] Social History Type Description Quantity Date Captured [...]
--- OUTSIDE RECORDS SUMMARY | 2023-06-25 10:20 | XMS_ITS | Clinical Summary ---
Author Name Unknown Organization [facility] Address [place], [place] [address] Care Team Providers Care Water Quality Technician Name Role Phone Colby Chakraborty Unavailable [phone] Viksa Barajas MD Unavailable Kory Vang MD Primary Care Provide r Allergies No known active allergies Medications Medication Sig Dispensed Refills Start Date End Date Status aspirin 325 mg tabletIndications:Ac [place] CVA (cerebrovascular accident) (HC) Take 1 tablet [...] pain 11/14/2010 GERD (gastroesophageal reflux disease) 1 Encounters Date Type Department Care Team Description 06/12/2023 3:00 PM RESTRIKE HAMMER OPERATOR Ancillary Procedure [facility] Haylie Rodriguez [address] [place] [address] Dr Tavarez [place] [address] 06/12/2023 Travel from Last 3 Months Immunizations Name Administration Dates Next Due COVID-19 vaccine ([employer] 30mcg/0.3mL) PF, MDDane 03/16/2021,08/13/2020,07/23/2020 Influenza RIV4 (Age 18+ Year s) [...] 12/19/2021 2:30 PM CDT Plan of Treatment Health Maintenance Due Date Last Done Comments [...] history exists Influenza for age 50-64 01/18/2023 03/15/20 21, 01/26/2020, 03/04/2019, Additional history exists Pap test for age 21-65 02/19/2026 02/19/2023, 2022 Tetanus booster 06/22/2029 06/22/2019, 06/30/2010 Zoster (shingles) series for age 50+ Completed 06/05/2018, 04/03/2018, 05/11/2016 Tdap Completed 06/22/2019, 06/30/2010 Pneumococcal series for age 6-64 Aged Out No longer eligible based on patient's age to complete this topic Procedures Procedure Name Priority Date/Time Associated Diagnosis Comments CT CARDIAC CALCIUM SCORE ONLY WO SINGLE READ Routine 06/12/2023 3:00 PM RESTRIKE HAMMER OPERATOR Screening for cardiovascular condition from Last 3 Months Results * CT CARDIAC CALCIUM SCORE ONLY WO SINGLE READ (06/12/2023 3:00 PM RESTRIKE HAMMER OPERATOR) Anatomical Region Laterality Modality Computed Tomogra phy 06/13/2023 1:32 AM RESTRIKE HAMMER OPERATOR Narrative 06/13/2023 1:32 AM RESTRIKE HAMMER OPERATOR For Patients: ??As a result of the [employer]an[employer] Cures Act, medical imaging exams and procedure reports are released immediately into your electronic medical record. ??You may view this report before your referring provider. ??If you have questions, please contact your health care provider. CT CARDIAC CALCIUM SCORING PATIENT HISTORY: ??Screening for cardiovascular condition. REPORT: ??High-resolution, ECG-synchronized noncontrast computed tomography of the heart with attention to the coronary arteries was performed. ?? Coronary calcification analyzed using Siemens calcium scoring software. These are the results of the evaluation: CT Calcium Scoring: ??This cardiac CT examination will provide you with a coronary artery calcium score. A coronary artery calcium score is a measurement of the amount of calcified plaque in the coronary arteries, the arteries that supply blood to the heart muscle. The coronary artery calcium score is calculated based on the number, size, and density of the calcified plaques in the coronary arteries. The amount of calcified coronary plaque has been shown to directly correlate with future risk for heart disease. The coronary artery calcium is a marker of how much plaque has accumulated in the islas of the coronary arteries. It is not a test for blockages. This test is intended to assess cardiovascular risk in patients without symptoms. It is not intended to be a test for individuals with chest pain or other possible symptoms suggestive of heart disease. If you are having chest pain or other potential cardiovascular symptoms, see your physician. Calcium Score: Left main = 0 Left anterior descending = 0 Left circumflex = 0 Right coronary artery = 0 Total calcium score = 0 This places the patient at the 0th percentile for matched age and gender. No Calcified Plaque Seen Assessment: ?? Your cardiac CT examination has shown no measurable calcified coronary plaque. Your coronary artery calcium score is zero. ?? Having zero calcified plaque in the arteries that supply your heart is associated with a low risk for heart attack over the next 5 years. As discussed above, the coronary artery calcium score is intended for risk assessment in patients without cardiovascular symptoms. The low risk associated with having zero calcified plaque does not apply to individuals who are having symptoms. If you are having chest pain or other potential cardiovascular symptoms, see your physician. Recommendations: To maintain a low cardiovascular risk, we strongly recommend adherence to healthy lifestyle behaviors including: - Following a heart healthy diet focused on modest portion sizes, a high intake of fresh fruits and vegetables, whole grains, healthy fats (olive oil, nuts and seeds, avocados), and healthy proteins (unprocessed meats, fish, legumes). - Following an active lifestyle including 30-45 minutes of moderate intensity exercise 5-6 times per week - Avoidance of tobacco products. The scientific evidence would suggest that the majority of individuals with a coronary artery calcium score of zero are at low risk for a heart attack, low enough risk that they are unlikely to benefit from preventive cardiovascular medication including aspirin and the cholesterol lowering statin medications. We recommend that individuals with a coronary artery calcium score of zero avoid taking a daily aspirin to prevent heart disease, as they are unlikely to benefit from aspirin, and aspirin use is associated with a small increase in the risk of bleeding. Unless you have markedly elevated cholesterol or diabetes, the scientific evidence would suggest that individuals with a calcium score of zero can potentially avoid taking cholesterol-lowering medications for the next 3-5 years. These recommendations are generalized and may not specifically apply to you as an individual. Your primary care physician is in the best position to provide advice on your care and clinical decisions should ultimately be made by you and your physician. EXTRA-CARDIAC FINDINGS: Normal heart size. No pericardial effusion. Aneurysmal dilation of the ascending thoracic aorta measuring 4.0 cm in AP dimension. The visualized lungs are clear. Please note that all CT scans at this facility use dose modulation, iterative reconstruction, and/or weight-based dosing when appropriate to reduce radiation dose to as low as reasonably achievable. Dictated by Shantelle Reyna MD @ 06/13/2023 1:32:22 AM (Electronically Signed) Procedure Note Shantelle Reyna MD - 06/13/2023 For Patients: As a result of the Century Cures Act, medical imagingexams and procedure reports are released immediately into your electronicmedical record. You may view this report before your referring provider.If you have questions, please contact your health care provider. CT CARDIAC CALCIUM SCORING PATIENT HISTORY: Screening for cardiovascular condition. REPORT: High-resolution, ECG-synchronized noncontrast computed tomographyof the heart with attention to the coronary arteries was performed. Coronary calcification analyzed using Siemens calcium scoring software.These are the results of the evaluation: CT Calcium Scoring: This cardiac CT examination will provide you with acoronary artery calcium score. A coronary artery calcium score is ameasurement of the amount of calcified plaque in the coronary arteries,the arteries that supply blood to the heart muscle. The coronary arterycalcium score is calculated based on the number, size, and density of thecalcified plaques in the coronary arteries. The amount of calcifiedcoronary plaque has been shown to directly correlate with future risk forheart disease. The coronary artery calcium is a marker of how much plaque has accumulatedin the islas of the coronary arteries. It is not a test for blockages.This test is intended to assess cardiovascular risk in patients withoutsymptoms. It is not intended to be a test for individuals with chest painor other possible symptoms suggestive of heart disease. If you are havingchest pain or other potential cardiovascular symptoms, see yourphysician. Calcium Score: Left main = 0 Left anterior descending = 0 Left circumflex = 0 Right coronary artery = 0 Total calcium score = 0 This places the patient at the 0th percentile for matched age andgender. No Calcified Plaque Seen Assessment: Your cardiac CT examination has shown no measurable calcified coronaryplaque. Your coronary artery calcium score is zero. Having zero calcified plaque in the arteries that supply your heart isassociated with a low risk for heart attack over the next 5 years. As discussed above, the coronary artery calcium score is intended for riskassessment in patients without cardiovascular symptoms. The low riskassociated with having zero calcified plaque does not apply to individualswho are having symptoms. If you are having chest pain or other potentialcardiovascular symptoms, see your physician. Recommendations: To maintain a low cardiovascular risk, we strongly recommend adherence tohealthy lifestyle behaviors including: - Following a heart healthy diet focused on modest portion sizes, a highintake of fresh fruits and vegetables, whole grains, healthy fats (oliveoil, nuts and seeds, avocados), and healthy proteins (unprocessed meats,fish, legumes). - Following an active lifestyle including 30-45 minutes of moderateintensity exercise 5-6 times per week - Avoidance of tobacco products. The scientific evidence would suggest that the majority of individualswith a coronary artery calcium score of zero are at low risk for a heartattack, low enough risk that they are unlikely to benefit from preventivecardiovascular medication including aspirin and the cholesterol loweringstatin medications. We recommend that individuals with a coronary artery calcium score of zeroavoid taking a daily aspirin to prevent heart disease, as they areunlikely to benefit from aspirin, and aspirin use is associated with asmall increase in the risk of bleeding. Unless you have markedly elevated cholesterol or diabetes, the scientificevidence would suggest that individuals with a calcium score of zero canpotentially avoid taking cholesterol-lowering medications for the next 3-5years. These recommendations are generalized and may not specifically apply toyou as an individual. Your primary care physician is in the best positionto provide advice on your care and clinical decisions should ultimately bemade by you and your physician. EXTRA-CARDIAC FINDINGS: Normal heart size. No pericardial effusion.Aneurysmal dilation of the ascending thoracic aorta measuring 4.0 cm in APdimension. The visualized lungs are clear. Please note that all CT scans at this facility use dose modulation,iterative reconstruction, and/or weight-based dosing when appropriate toreduce radiation dose to as low as reasonably achievable. Dictated by Shantelle Reyna MD @ 06/13/2023 1:32:22 AM (Electronically Signed) Referral Self CT from Last 3 Months Advance Directives Latest Code Status on File Code Status Date Activated Date Inactivated Comments Full Code 09/27/2016 6:23 AM 09/27/2016 3:38 PM Code Status History Code Status Date Activated Date Inactivated Comments Full Code 02/20/2016 1:01 AM 02/21/2016 6:12 PM Question Answer Comments Code Status Discussion: Per Existing Order Full Code 11/14/2010 3:28 AM 11/14/2010 5:18 PM Care Teams Water Quality Technician Relationship Specialty [place] [address] [place] [phone] PCP - General Internal Medicine 05/10/23 Colby Chakraborty PA [address] [place] [address] [place] [id number] Cardiology - EP Cardiovascular Disease 11/07/19 Vikas Barajas MD [address] [place] [address] [place] [id number] Cardiology - EP Cardiovascular Disease 11/02/16
--- OUTSIDE RECORDS SUMMARY | 2023-06-25 10:21 | XMS_ITS | Clinical Summary ---
Author Name Unknown Organization [facility] Address [address] [place] [address] Care Team Providers Care Proof Operator Name Role Phone Claudette Retana MD Unavailable Allergies Active Allergy [...] Sex Assigned at Female 04/21/2021 9:03 AM ACTUARIAL ASSOCIATE Gender Identity Female 04/21/2021 9:03 AM ACTUARIAL ASSOCIATE Sexual Orientation Not on file Last Filed Vital Signs Vital Sign Reading Time Taken Comments Blood Pressure 116/80 05/21/2020 9:28 AM ACTUARIAL ASSOCIATE Pulse 51 05/21/2020 9:28 AM ACTUARIAL ASSOCIATE Temperature 36.1 ??C (97 ??F) 05/21/2020 9:28 AM ACTUARIAL ASSOCIATE Respiratory Rate 16 05/21/2020 9:28 AM ACTUARIAL ASSOCIATE Oxygen Saturation 96% 05/21/2020 9:28 AM ACTUARIAL ASSOCIATE Inhaled Oxygen Concentration - - Weight 112.3 kg (247 lb 9.6 oz) 05/21/2020 9:28 AM ACTUARIAL ASSOCIATE Height 171.5 cm (5' 7.5) 03/24/2019 10 :42 AM ACTUARIAL ASSOCIATE Body Mass Index 38.21 03/24/2019 10:42 AM ACTUARIAL ASSOCIATE Plan of Treatment Upcoming Encounters Date Type Department Care Team (Late st Contact Info) Description 11/14/2023 10:30 AM CDT Office Visit [facility] [id number] [place] [address] [place] [address] Claudette Retana MD [address] [facility] [address] [place], [place] [id number] Health Maintenance Due Date Last Done Comments ANNUAL REVIEW OF HM ORDERS 1960 CT COLONOGRAPHY 1960 FIT 1960 FLEX SIG 1960 sDNA (Cologuard) 1960 HIV SCREENING 11/02/1975 MAMMO SCREENING 07/29/2020 07/29/2018, 05/2018, 07/18/2018, Additional history exists RSV VACCINE ( & 60+) (1 - 1-dose 60+ series) 2020 ADVANCE CARE PLANNING 03/15/2021 03/15/2016 GLUCOSE 02/24/2022 02/24/2019, 08/2017, 06/11/2016 YEARLY PREVENTIVE VISIT 08/15/2022 08/16/19 22, 08/08/2020, [...] age to complete this topic Care Teams Proof Operator Relationship Specialty Start Date End Date Claudette Retana MD [address] [facility] [address] [place] [address] Assigned Surgical Provider 11/17/22
--- OUTSIDE RECORDS SUMMARY | 2023-06-25 10:21 | XMS_ITS | Encounter Summary ---
Author Name Unknown Organization [facility] Address [address] [place] [address] Care Team Providers Care Electronic Warfare Operator Name Role Phone Kwan De La Cruz MD Primary Care Provider Unavail able Claudette Retana MD Unavailable Kwan De La Cruz MD Unavailable Unavailable Mechelle Mtz APRN ONCOLOGY REP Unavailable + Kwan De La Cruz MD Unavailable Unavailable Mechelle Mtz APRN ONCOLOGY REP Unavailable + Mechelle Mtz APRN ONCOLOGY REP Unavailable + Claudette Retana MD Unavailable Encounter Details Date Type Department Care Team (Late st Contact Info) Description 05/01/2021 [facility] Medical Advice [address] [address] Ginette Padilla, RN Social History Tobacco Use Types Packs/Day Years Used Date Smoking Tobacco: Never Smokeless Tobacco: Never Alcohol Use Standard Drinks/Week Comments Yes 0 (1 standard drink = 0.6 oz pur e alcohol) occassional PHQ-2 Answer Date Recorded PHQ-2 Score 0 04/28/2021 Sex and Gender Information Value Date Recorded Sex Assigned at Female 04/21/2021 9:03 AM STRINGED INSTRUMENT ASSEMBLER Gender Identity Female 04/21/2021 9:03 AM STRINGED INSTRUMENT ASSEMBLER Sexual Orientation Not on file COVID-19 Exposure Response Date Recorded In the last month, have you been in contact with someone who was confirmed or suspected to have Coronavirus / COVID-19? No / Unsure 04/28/2021 1:37 PM STRINGED INSTRUMENT ASSEMBLER documented as of this encounter Plan of Treatment Upcoming Encounters Date Type Department Care Team (Late st Contact Info) Description 11/14/2023 10:30 AM CDT Office Visit [address] [phone] Claudette Retana MD [address] [place] [phone] documented as of this encounter Visit Diagnoses Not on filedocumented in this encounter Care Teams Electronic Warfare Operator Relationship Specialty Start Date End Date Kwan De La Cruz MD PCP - General Family Practice 02/17/18 06/19/23 Claudette Retana MD [address] [place] [address] Assigned Surgical Provider 03/11/20 10/26/22 Kwan De La Cruz MD Assigned PCP 01/29/21 05/27/21 Mechelle Mtz APRN ONCOLOGY REP [facility] [place] [address] [place] [phone] Assigned PCP 05/28/21 07/29/21 Kwan De La Cruz MD Assigned PCP 07/30/21 03/09/22 Mechelle Mtz APRN ONCOLOGY REP [facility] [place] [address] [place] [phone] Assigned PCP 03/10/22 05/04/22 Mechelle Mtz APRN [facility] [place] [address], [place] [address] Assigned PCP 07/14/22 01/25/23 Claudette Retana MD [address] [place] [address] Assigned Surgical Provider 11/17/22 documented as of this encounter
--- OUTSIDE RECORDS SUMMARY | 2023-06-25 10:21 | XMS_ITS | Encounter Summary ---
Author Name Unknown Organization [facility] Address [address] [place] [address] Care Team Providers Care Rail Maintenance Worker Name Role Phone Kwan De La Cruz MD Primary Care Provider Unavail able Claudette Retana MD Unavailable Kwan De La Cruz MD Unavailable Unavailable Mechelle Mtz APRN SALES OFFICE MANAGER Unavailable + Kwan De La Cruz MD Unavailable Unavailable Mechelle Mtz APRN SALES OFFICE MANAGER Unavailable + Mechelle Mtz APRN SALES OFFICE MANAGER Unavailable + Claudette Retana MD Unavailable Encounter Details Date Type Department Care Team (Late st Contact Info) Description 05/01/2021 [facility] Medical Advice [address] [phone] Carmen Zuniga Social History Tobacco Use Types Packs/Day Years Used Date Smoking Tobacco: Never Smokeless Tobacco: Never Alcohol Use Standard Drinks/Week Comments Yes 0 (1 standard drink = 0.6 oz pur e alcohol) occassional PHQ-2 Answer Date Recorded PHQ-2 Score 0 04/28/2021 Sex and Gender Information Value Date Recorded Sex Assigned at Female 04/21/2021 9:03 AM CLERICAL ASSOCIATE Gender Identity Female 04/21/2021 9:03 AM CLERICAL ASSOCIATE Sexual Orientation Not on file COVID-19 Exposure Response Date Recorded In the last month, have you been in contact with someone who was confirmed or suspected to have Coronavirus / COVID-19? No / Unsure 04/28/2021 1:37 PM CLERICAL ASSOCIATE documented as of this encounter Plan of Treatment Upcoming Encounters Date Type Department Care Team (Late st Contact Info) Description 11/14/2023 10:30 AM CDT Office Visit [address] [phone] Claudette Retana MD [address] [place] [address] documented as of this encounter Visit Diagnoses Not on filedocumented in this encounter Care Teams Rail Maintenance Worker Relationship Specialty Start Date End Date Kwan De La Cruz MD PCP - General Family Practice 02/17/18 06/19/23 Claudette Retana MD [address] [place] [address] Assigned Surgical Provider 03/11/20 10/26/22 Kwan De La Cruz MD Assigned PCP 01/29/21 05/27/21 Mechelle Mtz APRN SALES OFFICE MANAGER [facility] [place] [address] [place] [phone] Assigned PCP 05/28/21 07/29/21 Kwan De La Cruz MD Assigned PCP 07/30/21 03/09/22 Mechelle Mtz APRN SALES OFFICE MANAGER [facility] [place] [address] [place] [phone] Assigned PCP 03/10/22 05/04/22 Mechelle Mtz APRN [facility] [address], [place] [address] Assigned PCP 07/14/22 01/25/23 Claudette Retana MD [address] [place] [address] Assigned Surgical Provider 11/17/22 documented as of this encounter
--- OUTSIDE RECORDS SUMMARY | 2023-06-25 10:21 | XMS_ITS | Encounter Summary ---
Author Name Unknown Organization [facility] Address [address] [place] [address] Care Team Providers Care Party Plan Dealer Name Role Phone Kwan De La Cruz MD Primary Care Provider Unavail able Kwan De La Cruz MD Unavailable Unavailable Mechelle Mtz APRN SOCIAL SCIENCES PROFESSOR Unavailable + Claudette Retana MD Unavailable Miguelito Membreno MD Unavailable [phone] TEST EXAMINER CNM Unavailable Unava ilable Adrian Montesinos DPM Unavailable [phone] Kwan De La Cruz MD Unavailable Unavailable Mechelle Mtz APRN SOCIAL SCIENCES PROFESSOR Unavailable + Kwan De La Cruz MD Unavailable Unavailable Mechelle Mtz APRN SOCIAL SCIENCES PROFESSOR Unavailable + Mecehlle Mtz APRN SOCIAL SCIENCES PROFESSOR Unavailable + Claudette Retana MD Unavailable Encounter Details Date Type Department Care Team (Late st Contact Info) Description 01/26/2020 [facility] Medical Advice [address] [phone] Ginette Padilla RN Social History Tobacco Use Types Packs/Day Years Used Date Smoking Tobacco: Never Smokeless Tobacco: Never Alcohol Use Standard Drinks/Week Comments Yes 0 (1 standard drink = 0.6 oz pur e alcohol) occassional PHQ-2 Answer Date Recorded PHQ-2 Score 0 09/18/2019 Sex and Gender Information Value Date Recorded Sex Assigned at Female 04/21/2021 9:03 AM STEAM AND POWER SUPERVISOR Gender Identity Female 04/21/2021 9:03 AM STEAM AND POWER SUPERVISOR Sexual Orientation Not on file COVID-19 Exposure [...] Description 11/14/2023 10:30 AM CDT Office Visit [address] [phone] Claudette Retana MD [address] [place] [phone] documented as of this encounter Visit Diagnoses Not on filedocumented in this encounter Care Teams Party Plan Dealer Relationship Specialty Start Date End Date Kwan De La Cruz MD PCP - General Family Practice 02/17/18 06/19/23 Kwan De La Cruz MD Assigned PCP 03/15/19 03/05/20 Mechelle Mtz APRN SOCIAL SCIENCES PROFESSOR [facility] [address] [place] [address] Assigned PCP 03/06/20 01/28/21 Claudette Retana MD [address] [place] [phone] Assigned Surgical Provider 03/11/2010/26/22 [place] [address] [facility] [address] [place] [address] Assigned Musculoskeletal Provider 03/11/20 08/27/20 Dayna Guzman, ROAD TEST EXAMINER CNM Assigned OBGYN Provider 03/11/20 10/22/20 Adrian Montesinos, DPM [address] [facility] [place] [address] Assigned Musculoskeletal Provider 08/28/20 10/22/20 Kwan De La Cruz MD Assigned PCP 01/29/21 05/27/21 Mechelle Mtz APRN SOCIAL SCIENCES PROFESSOR [facility] [place] [address] [place] [phone] Assigned PCP 05/28/21 07/29/21 Kwan De La Cruz MD Assigned PCP 07/30/21 03/09/22 Mechelle Mtz APRN SOCIAL SCIENCES PROFESSOR [facility] [place] [place] [phone] Assigned PCP 03/10/22 05/04/22 Mechelle Mtz APRN SOCIAL SCIENCES PROFESSOR [facility] [place] [address] [place] [phone] Assigned PCP 07/14/22 01/25/23 Claudette Retana MD [address] [place] [address] Assigned Surgical Provider 11/17/22 documented as of this encounter
--- OUTSIDE RECORDS SUMMARY | 2023-06-25 10:21 | XMS_ITS | Encounter Summary ---
Author Name Unknown Organization [facility] Address [address] [place] [address] Care Team Providers Care Brake Lining Driller Name Role Phone Murali Hickey PA-C Primary Care Provider Kwan De La Cruz MD Primary Care Provider Unavail able Kwan De La Cruz MD Unavailable Unavailable Kwan De La Cruz MD Unavailable Unavailable Brandie Jones HOURLY TEAM MEMBERS UTILITY ARBORIST Unavailable Kwan De La Cruz MD Unavailable Unavailable Mechelle Mtz HOURLY TEAM MEMBERS UTILITY ARBORIST Unavailable + Claudette Retana MD Unavailable Miguelito Membreno MD Unavailable [phone] Dayna Guzman HOURLY TEAM MEMBERS CNM Unavailable Unava ilAdrian Lopez DPM Unavailable [phone] Kwan De La Cruz MD Unavailable Unavailable Mechelle Mtz APRN UTILITY ARBORIST Unavailable + Kwan De La Cruz MD Unavailable Unavailable Mechelle Mtz HOURLY TEAM MEMBERS UTILITY ARBORIST Unavailable + Mechelle Mzt APRN UTILITY ARBORIST Unavailable + Claudette Retana MD Unavailable Reason for Visit * Reason Onset Date Comments Outreach 01/15/2018 vip mammo att 1 Encounter Details Date Type Department Care Team (Late Contact Info) Description 01/15/2018 Telephone [facility] [address] [place] [phone] OpMurali finley PA-C [address] [place] [address] Outreach (vip mammo att 1 ) Social History Tobacco Use Types Packs/Day Years Used Date Smoking Tobacco: Never Smokeless Tobacco: Never Alcohol Use Standard Drinks/Week Comments Yes 0 (1 standard drink = 0.6 oz pur e alcohol) occassional Sex and Gender Information Value Date Recorded Sex Assigned at Female 04/21/2021 9:03 AM MANAGING DIRECTOR ATLAS Gender Identity Female 04/21/2021 9:03 AM MANAGING DIRECTOR ATLAS Sexual Orientation Not on file documented as of this encounter Miscellaneous Notes * Telephone Encounter - Priscilla Fatima - 01/15/2018 12:08 PM CDT 01/15/2018 Attempt 1 Contacted patient in regards to scheduling VIP mammogram Message on AsicAheadmail Patient is also due for - Comments: Outreach Black Topper Priscilla Fatima documented in this encounter Plan of Treatment Upcoming Encounters Date Type Department Care Team (Late Contact Info) Description 11/14/2023 10:30 AM CDT Office Visit [address] [place] [phone] Claudette Retana MD [address] [place] [address] documented as of this encounter Visit Diagnoses Not on filedocumented in this encounter Additional Health Concerns Infection Onset Date Last Indicated Resolved Time Rule Out COVID-19 11/26/2019 11/26/2019 11/27/2019 7:57 PM CDT documented as of this encounter Care Teams Brake Lining Driller Relationship Specialty Start Date End Date Murali Hickey PA-C [address] [place] [address] PCP - General Family Practice 12/17/17 02/16/18 [place] [address] [place] [address] PCP - General Family Practice 02/17/18 06/19/23 Kwan De La Cruz MD PCP - Assigned PCP 03/04/16 07/22/18 Kwan De La Cruz MD Assigned PCP 03/04/16 10/25/18 Brandie Jones, HOURLY TEAM MEMBERS UTILITY ARBORIST [address] [place] [address] Assigned PCP 10/26/18 03/14/19 Kwan De La Cruz MD Assigned PCP 03/15/19 03/05/20 Mechelle Mtz, HOURLY TEAM MEMBERS UTILITY ARBORIST [facility] [address], [place] [phone] Assigned PCP 03/06/20 01/28/21 Claudette Retana MD 420 [facility] [address] [place] [address] Assigned Surgical Provider 03/11/2010/26/22 [place] [address] [place] [address] Assigned Musculoskeletal Provider 03/11/20 08/27/20 Dayna Guzman, HOURLY TEAM MEMBERS CNM Assigned OBGYN Provider 03/11/20 10/22/20 Adrian Monteisnos, DPM [address] [facility] [place] [address] Assigned Musculoskeletal Provider 08/28/20 10/22/20 Kwan De La Cruz MD Assigned PCP 01/29/21 05/27/21 Mechelle Mtz APRN UTILITY ARBORIST [facility] [address] [place] [phone] Assigned PCP 05/28/21 07/29/21 Kwan De La Cruz MD Assigned PCP 07/30/21 03/09/22 Mechelle Mtz APRN UTILITY ARBORIST [facility] [address] [place] [phone] Assigned PCP 03/10/22 05/04/22 Mechelle Mtz APRN UTILITY ARBORIST [facility] [address] [place] [phone] Assigned PCP 07/14/22 01/25/23 Claudette Retana MD [address] [place] [address] Assigned Surgical Provider 11/17/22 documented as of this encounter
--- OUTSIDE RECORDS SUMMARY | 2023-06-25 10:21 | XMS_ITS | Encounter Summary ---
Author Name Unknown Organization [facility] Address [address] [place] [address] Care Team Providers Care Glass Belt Sander Name Role Phone Kwan De La Cruz MD Primary Care Provider Unavail able Mechelle Mtz SPIN INSTRUCTOR FREELANCE MAKEUP ARTIST Unavailable + Encounter Details Date Type Department [...] Sex Assigned at Female 04/21/2021 9:03 AM WORKFORCE SPECIALIST Gender Identity Female 04/21/2021 9:03 AM WORKFORCE SPECIALIST Sexual Orientation Not on file COVID-19 Exposure [...] 11/14/2023 10:30 AM CDT Office Visit [address] [place] [address] Claudette Retana MD [address] [address] documented as of this encounter Visit Diagnoses Not on filedocumented in this encounter Care Teams Glass Belt Sander Relationship Specialty Start Date End Date Kwan De La Cruz MD PCP - General Family Practice 02/17/18 06/19/23 Mechelle Mtz APRN CNP [facility] [place] [address], [place] [address] Assigned PCP 07/14/22 01/25/23 documented as of this encounter
--- OUTSIDE RECORDS SUMMARY | 2023-06-25 10:21 | XMS_ITS | Encounter Summary ---
Author Name Unknown Organization [facility] Address [address] [place] [address] Care Team Providers Care Sheet Rock Sander Name Role Phone Kwan De La Cruz MD Primary Care Provider Unavail able Claudette Retana MD Unavailable Kwan De La Cruz MD Unavailable Unavailable Mechelle Mtz APRN GRILL ATTENDANT Unavailable + Kwan De La Cruz MD Unavailable Unavailable Mechelle Mtz APRN GRILL ATTENDANT Unavailable + Mechelle Mtz APRN GRILL ATTENDANT Unavailable + Claudtete Retana MD Unavailable Encounter Details Date Type Department Care Team (Late st Contact Info) Description 05/01/2021 [facility] Medical Advice [address] [address] Nasrin Smith, RN Social History Tobacco Use Types Packs/Day Years Used Date Smoking Tobacco: Never Smokeless Tobacco: Never Alcohol Use Standard Drinks/Week Comments Yes 0 (1 standard drink = 0.6 oz pur e alcohol) occassional PHQ-2 Answer Date Recorded PHQ-2 Score 0 04/28/2021 Sex and Gender Information Value Date Recorded Sex Assigned at Female 04/21/2021 9:03 AM EVENT MARKETING COORDINATOR Gender Identity Female 04/21/2021 9:03 AM EVENT MARKETING COORDINATOR Sexual Orientation Not on file COVID-19 Exposure Response Date Recorded In the last month, have you been in contact with someone who was confirmed or suspected to have Coronavirus / COVID-19? No / Unsure 04/28/2021 1:37 PM EVENT MARKETING COORDINATOR documented as of this encounter Plan of Treatment Upcoming Encounters Date Type Department Care Team (Late st Contact Info) Description 11/14/2023 10:30 AM CDT Office Visit [address] [phone] Claudette Retana MD [address] [place] [address] documented as of this encounter Visit Diagnoses Not on filedocumented in this encounter Care Teams Sheet Rock Sander Relationship Specialty Start Date End Date Kwan De La Cruz MD PCP - General Family Practice 02/17/18 06/19/23 Claudette Retana MD [address] [place] [address] Assigned Surgical Provider 03/11/20 10/26/22 Kwan De La Cruz MD Assigned PCP 01/29/21 05/27/21 Mechelle Mtz APRN GRILL ATTENDANT [facility] [place] [address] [place] [phone] Assigned PCP 05/28/21 07/29/21 Kwan De La Cruz MD Assigned PCP 07/30/21 03/09/22 Mechelle Mtz APRN GRILL ATTENDANT [facility] [place] [place] [address] Assigned PCP 03/10/22 05/04/22 Mechelle Mtz APRN GRILL ATTENDANT [facility] [place] [address], [place] [address] Assigned PCP 07/14/22 01/25/23 Claudette Retana MD [address] [place] [address] Assigned Surgical Provider 11/17/22 documented as of this encounter
--- OUTSIDE RECORDS SUMMARY | 2023-06-25 10:21 | XMS_ITS | Encounter Summary ---
Author Name Unknown Organization [facility] Address [address] [place] [address] Care Team Providers Care Art Preparator Name Role Phone Kwan De La Cruz MD Primary Care Provider Unavail able Mechelle Mzt BIOINFORMATICS ASSISTANT FRUIT PACKER FACE AND FILL Unavailable + Reason for Visit * Reason Comments Skin Check FBSE. Area of concer n: brown patch right cheek. History of NMSC. Encounter Details Date Type Department Care Team (Late st Contact Info) Description 11/09/2022 10:45 AM CDT Office Visit [address] [address] Claudette Retana MD 420 [facility] 98 [place] [address] History of nonmelanoma skin cancer (Primary [...] Assigned at Female 04/21/2021 9:03 AM SUPERVISOR PUBLICATIONS Gender Identity Female 04/21/2021 9:03 AM SUPERVISOR PUBLICATIONS Sexual Orientation Not on file COVID-19 Exposure [...] included. Recommend [facility] also known as [facility] dermatology in [facility] Dermatology specialists or [facility] skin Dermatology consultants in [facility] Patient Education Checking for Skin Cancer You [...] can help you see if any moles global director air and climate change time. Most skin changes are not cancer. But if you see any changes in your skin, call your doctor right away. Only he or she can diagnose a problem. If you have skin cancer, seeing your doctor can be the first step toward getting the treatment that could save your life. [employer] last reviewed this educational content on 08/18/2018 ?? [id number] The [employer]. [address] [place] [address]. All rights reserved. This information is not intended as a substitute for professional medical care. Always follow your healthcare professional's instructions. When should I call my doctor? If you are worsening or not improving, please, contact us or seek urgent care as noted below. Who should I call with questions (adults)? [facility] (adult and pediatric): [phone] [facility] (adult): [phone] For urgent needs outside of business hours call the [facility] at [phone] and ask for thedermatology resident compo conveyor operator to be paged If this is a medical emergency and you are unable to reach an ER, Call [phone] Who should I call with questions (pediatric)? [facility]- Pediatric Dermatology Dr. Ale Kirk, Dr. Osito Bowling, Dr. eGena Mccoy, Cheyenne Valdez, [place], Dr. Marjorie Hart, Dr. Maia Hernandez & Dr. Kory Daugherty Non-urgent nurse triage line; [phone]- Elena and Loree RN Care Coordinators Elvia (Family Medicine Chair/Complex Hospitality Internship) [phone] If you need a prescription refill, please contact your pharmacy. Refills are approved or denied by our Physicians during normal business hours, Saturday through Fridays Per office policy, refills will not be granted if you have not been seen within the past year (or sooner depending on your child's condition) Scheduling Information: Pediatric Appointment Scheduling and Call Center Radiology Scheduling- [phone] Sedation Unit Scheduling- [phone] [place] Scheduling- General [phone]; Pediatric Dermatology [phone] Main Consultant Intern Services: [phone] Mongolian: [phone] Irish: [phone] Hmong/Sinhala/Divehi: [phone] Preadmission Nursing Department (Fax all pre-operative paperwork to this number) For urgent matters arising during evenings, weekends, or holidays that cannot wait for normal business hours please call and ask for the dermatology resident compo conveyor operator to be paged. Wound Care After a [...] hands thoroughly with soap or use hand chain link fence installer before all wound care Clean the wound [...] How should I care for my wound half-way? Do not get your wound dirty Keep up with wound care for one week or until the area is healed. A small scab will form and fall off by itself when the area is completely healed. The area will be red and will become pink in color as it heals. Sun protection is very important for how your scar will returned telephone equipment appraiser. Sunscreen with an SPF 30 or greater [...] back. Your results will automatically release to [employer] before your provider has even reviewed them. The clinic will call you with the results, send you aMyChart message, or have you schedule a follow-up clinic or phone time to discuss the results. Contact our clinics if you do not hear from us in 2 weeks. Who should I call with questions? [facility]: [phone] [facility]: [phone] For urgent needs outside of business hours call the [facility] at [phone] and ask for thedermatology resident compo conveyor operator documented in this encounter Progress Notes * Claudette Retana MD - 11/09/2022 10:45 AM CDT [facility] Dermatology Note Encounter Date: Nov 09, [...] 04/28/21 ?? 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 Family history: Negative for melanoma. [...] includes: flesh colored papules grouped - rosa elnea syndrome or connective tissue nevus or shagreen [...] decisions made by me. Claudette Retana MD Wax Pattern Assembler Department of Dermatology [facility][note 2]: , [facility]: , CC: Skin Check (FBSE. [...] Stroke (H) CC Claudette Retana MD [address] [address] on close of this encounter. documented in [...] Cruz Referring Provider: Claudette Retana MD [address] [address] There were no vitals taken for this [...] number listed below). Sincerely, Claudette Retana MD Cnc Technician Department of Dermatology [facility] Clinics: , [facility]: , documented in this encounter Plan of Treatment Upcoming Encounters Date Type Department Care Team (Late st Contact Info) Description 11/14/2023 10:30 AM CDT Office Visit [address] [address] Claudette Retana MD 420 [facility] [address] [place] [address] documented as of this encounter Procedures Procedure Name Priority Date/Time Associated Diagnosis Comments DERMATOPATHOLOGY EXAM Routine 11/09/2022 10:54 AM CDT Neoplasm of uncertain behavior of skin documented in this encounter Results * Dermatological Path Order and Indications (11/09/2022 10:54 AM CDT) Case Report Surgical Pathology Report ? Case: [id number] ? Authorizing Provider: ??Claudette Retana MD ? Collected: ? 11/09/2022 10:54 AM ? Ordering Location: ? [facility] ?? Received: ?11/09/2022 04:36 PM ? [place] ? Pathologist: ? Jorge Alberto De La [...] submitted in A1. 11/14/2022 3:31 PM CDT [facility] Microscopic Description The specimen exhibits mild epidermal hyperplasia with focal spongiosis and focal apparent interface changes and a lymphohistiocytic inflammatory infiltrate which appear centered around an hair follicle. EVG stain was attempted, but little dermis is seen for a definitive evaluation. 11/14/2022 3:31 PM CDT SPECIALTY LABS Performing Labs The technical component of this testing was completed at [facility] 11/14/2022 3:31 PM CDT [facility] Skin - Shave SPECIMEN FROM SKIN / Unknown 11/09/2022 10:54 AM CDT 11/09/2022 4:36 PM CDT Claudette NICE - [facility] Specialty Lab [address], Room [address] [place] [address], [facility] [phone] [facility] - [facility]ORE LAB [facility] [address] [place] [address] 1st [place] [address] documented in this encounter Visit Diagnoses Diagnosis History of nonmelanoma skin cancer- Primary Personal history of other malignant neoplasm of skin Lentigo Other dyschromia Neoplasm of unspecified behavior of bone, soft tissue, and skin Neoplasm of uncertain behavior of skin documented in this encounter Care Teams Art Preparator Relationship Specialty Start Date End Date Kwan De La Cruz MD PCP - General Family Practice 02/17/18 06/19/23 Mechelle Mtz APRN FRUIT PACKER FACE AND FILL [facility] [place] [address], [place] [address] Assigned PCP 07/14/22 01/25/23 documented as of this encounter
--- OUTSIDE RECORDS SUMMARY | 2023-06-25 10:21 | XMS_ITS | Referral Summary ---
Author Name Unknown Organization [facility] Address [address] [place] [address] Care Team Providers Care Cpc Name Role Phone Claudette Retana MD Unavailable [...] Vaccine 18-64 (Flublok) 03/15/2021,12/2019,03/04/2019 Influenza Vaccine >6 months,nicolette, PF 02/20/2018, 03/30/2017,03/15/2016 TDAP (Adacel,Boostrix) 06/22/2019 TDAP [...] Sex Assigned at Female 04/21/2021 9:03 AM DIRECTOR OF RECRUITING Gender Identity Female 04/21/2021 9:03 AM DIRECTOR OF RECRUITING Sexual Orientation Not on file Last Filed Vital Signs Vital Sign Reading Time Taken Comments Blood Pressure 116/80 05/21/2020 9:28 AM DIRECTOR OF RECRUITING Pulse 51 05/21/2020 9:28 AM DIRECTOR OF RECRUITING Temperature 36.1 ??C (97 ??F) 05/21/2020 9:28 AM DIRECTOR OF RECRUITING Respiratory Rate 16 05/21/2020 9:28 AM DIRECTOR OF RECRUITING Oxygen Saturation 96% 05/21/2020 9:28 AM DIRECTOR OF RECRUITING Inhaled Oxygen Concentration - - Weight 112.3 kg (247 lb 9.6 oz) 05/21/2020 9:28 AM DIRECTOR OF RECRUITING Height 171.5 cm (5' 7.5) 03/24/2019 10 :42 AM DIRECTOR OF RECRUITING Body Mass Index 38.21 03/24/2019 10:42 AM DIRECTOR OF RECRUITING Plan of Treatment Upcoming Encounters Date Type Department Care Team (Late st Contact Info) Description 11/14/2023 10:30 AM CDT Office Visit [address] [place] [address] Claudette Retana MD [address] [address] Care Teams Cpc Relationship Specialty Start Date End Date Claudette Retana MD 420 [facility] 98 [place] [address] Assigned Surgical Provider 11/17/22
--- OUTSIDE RECORDS SUMMARY | 2023-06-25 10:21 | XMS_ITS | Encounter Summary ---
Author Name Unknown Organization [facility] Address [address] [place] [address] Care Team Providers Care Electrician Constructor Supervisor Name Role Phone Kory Noland MD Primary Care Provider + Kwan De La Cruz MD Primary Care Provider Unavail able Murali Hickey PA-C Primary Care Provider Kwan De La Cruz MD Primary Care Provider Unavail able Kwan De La Cruz MD Unavailable Unavailable Kwan De La Cruz MD Unavailable Unavailable Brandie Jones RESTORATIVE COORDINATOR ENGINEERING TECHNICIAN Unavailable Kwan De La Cruz MD Unavailable Unavailable SmithMechelle green APRN ENGINEERING TECHNICIAN Unavailable + Claudette Retana MD Unavailable Miguelito Membreno MD Unavailable [phone] Dayna Guzman APRN CNM Unavailable Unava ilAdrian Lopez DPM Unavailable [phone] Kwan De La Cruz MD Unavailable Unavailable SmithMechelle green APRN ENGINEERING TECHNICIAN Unavailable + Kwan De La Cruz MD Unavailable Unavailable SmithMechelle schmidt APRN ENGINEERING TECHNICIAN Unavailable + Mechelle Mtz APRN ENGINEERING TECHNICIAN Unavailable + Claudette Retana MD Unavailable Reason for Visit * Reason Onset Date Comments Abstract 01/04/2012 Please Abstract Encounter Details Date Type Department Care Team (Late st Contact Info) Description 01/04/2012 Telephone [facility] [address] [place] [address] [place] [address] [place] [address] Abstract (Please Abstract ) Social History Tobacco Use Types Packs/Day Years Used Date Smoking Tobacco: Never Alcohol Use Standard Drinks/Week Comments Yes 0 (1 standard drink = 0.6 oz pur e alcohol) occassional Sex and Gender Information Value Date Recorded Sex Assigned at Female 04/21/2021 9:03 AM PARKS RECREATION DIRECTOR Gender Identity Female 04/21/2021 9:03 AM PARKS RECREATION DIRECTOR Sexual Orientation Not on file documented as of this encounter Miscellaneous Notes * Telephone Encounter - Eliza Dover - 01/04/2012 4:05 PM CDT Please abstract the following data from this visit with this patient into the appropriate field in Epic: Mammogram done on this date: is due will schedule future appointment, by this group: [facility] location , results were normal. Pap smear done on this date: is due will schedule future appointment , by this group: [facility] location , results were normal. documented in this encounter Plan of Treatment Upcoming Encounters Date Type Department Care Team (Late Contact Info) Description 11/14/2023 10:30 AM CDT Office Visit [address] [place] [address] Claudette Retana MD 420 [facility] [address] [place] [address] documented as of this encounter Visit Diagnoses Not on filedocumented in this encounter Additional Health Concerns Infection Onset Date Last Indicated Resolved Time Rule Out COVID-19 11/26/2019 11/26/2019 11/27/2019 7:57 PM CDT documented as of this encounter Care Teams Electrician Constructor Supervisor Relationship Specialty [place] [address] [place] [address] PCP - General 07/25/08 02/28/16 [place] [address] [place] [address] PCP - General Family Practice 02/29/16 12/16/17 Murali Hickey PA-C [address] [place] [address] PCP - General Family Practice 12/17/17 02/16/18 [place] [address] [place] [address] PCP - General Family Practice 02/17/18 06/19/23 Kwan De La Cruz MD PCP - Assigned PCP 03/04/16 07/22/18 Kwan De La Cruz MD Assigned PCP 03/04/16 10/25/18 Brandie Jones, RESTORATIVE COORDINATOR ENGINEERING TECHNICIAN [address] [place] [address] Assigned PCP 10/26/18 03/14/19 Kwan De La Cruz MD Assigned PCP 03/15/19 03/05/20 Mechelle Mtz, RESTORATIVE COORDINATOR ENGINEERING TECHNICIAN [facility] [place] [address] [place] [address] Assigned PCP 03/06/20 01/28/21 Claudette Retana MD [address] [place] [address] Assigned Surgical Provider 03/11/2010/26/22 [place] [address] [facility] [address] [place] [address] Assigned Musculoskeletal Provider 03/11/20 08/27/20 Dayna Guzman APRN CNM Assigned OBGYN Provider 03/11/20 10/22/20 Adrian Montesinos DPCollin [address] [facility] [place] [address] Assigned Musculoskeletal Provider 08/28/20 10/22/20 Kwan De La Cruz MD Assigned PCP 01/29/21 05/27/21 Mechelle Mtz APRN ENGINEERING TECHNICIAN [facility] [place] [address] [place] [address] Assigned PCP 05/28/21 07/29/21 Kwan De La Cruz MD Assigned PCP 07/30/21 03/09/22 Mechelle Mtz APRN ENGINEERING TECHNICIAN [facility] [place] [place] [address] Assigned PCP 03/10/22 05/04/22 Mechelle Mtz APRN ENGINEERING TECHNICIAN [facility] [place] [address] [place] [address] Assigned PCP 07/14/22 01/25/23 Claudette Retana MD [address] [address] Assigned Surgical Provider 11/17/22 documented as of this encounter
[2023-06-25 10:52] LABS: Creatinine* 0.8 mg/dL (0.5-1.5); Estimated Glomerular Filt Rate 83 ml/min
--- NOTE | 2023-06-25 11:30 | CRLHL7_ITS ---
For Patients: As a result of the Century Cures Act, medical imaging exams and procedure reports are released immediately into your electronic medical record. You may view this report before your referring provider. If you have questions, please contact your health care provider. INDICATION: Left lower quadrant pain. TECHNIQUE: CT abdomen and pelvis acquired with 128 cc Isovue 370 IV contrast. COMPARISON: None. FINDINGS: Lower chest: Unremarkable. Liver: Unremarkable. Normal in size and attenuation. No suspicious masses. Gallbladder and bile ducts: Unremarkable. No stones or inflammation. No biliary dilatation. Pancreas: Unremarkable. No mass or inflammation. Spleen: Unremarkable. Normal in size. No masses. Adrenal glands: Unremarkable. No nodules. Kidneys: Incidental 2.7 cm simple benign right lower pole renal cortical cyst.. No suspicious masses, stones, or hydronephrosis. GI tract: Sigmoid diverticulosis. Normal bowel caliber. No sign of inflammation. Normal appendix. Vasculature: Abdominal aorta is normal in caliber. Mesenteric arteries are patent. Lymph nodes: No lymphadenopathy. Peritoneum/Abdominal Wall: Unremarkable. No sign of mass or infiltration. No free air or significant free fluid. Pelvis: Unremarkable. Bones: No acute or significant incidental findings. Grade 1 degenerative anterolisthesis of L4 on L5. Mild L5-S1 disc degeneration. IMPRESSION: Sigmoid diverticulosis without imaging findings to indicate acute diverticulitis. There are no other imaging findings to explain left lower quadrant pain. Please note that all CT scans at this facility use dose modulation, iterative reconstruction, and/or weight-based dosing when appropriate to reduce radiation dose to as low as reasonably achievable. Dictated by Kevin Ghosh MD @ 06/25/2023 1:05:07 PM (Electronically Signed)
== END 2023-06-25 10:18 | disposition home or self-care (01) ==
LOC: CT 10:18
PROVIDERS: PCP Family Medicine; Visit Provider Family Medicine
DX: R10.32 Left lower quadrant pain (principal); K57.30 Diverticulosis of large intestine without perforation or abscess without bleeding
CPT/HCPCS: 36415; 74177; 82565; Q9967

== ENCOUNTER 2023-08-19 10:15 | Outpatient (RCR) | payer MEDICARE, SELFPAY ==
--- NOTE | 2023-08-02 17:12 | PT.OPEX ---
PT [place] Outpatient Eval PT [facility] Outpatient Eval Start: 08/02/23 13:22 Freq: Status: Active Protocol: Document 08/02/23 13:23 BLAS (Rec: 08/02/23 17:06 BLAS [id number]) E-signed By Sheeba Alexandre DPT Physical Therapy Outpatient Evaluation Insurance Information Insurance Name Medicare B,[facility] Medical Diagnosis L hip pain Treating Diagnosis L hip pain, LB/Buttock pain, impaired L hip ROM, limping/ antalgic gait, core/hip/glut weakness, limited tolerance for extended standing/walking/ stairs, difficulty with car transfers/rolling over due to increased pain Subjective Subjective Patient reports chronic L hip pain for the last couple of months. She reports hx of LBP , sciatica issues with pain/sx down her L LE as well. States LB/sciatica pain has also been flared up over the last month or so. She gets chiropractic treatments as needed for her back, last treatment was about 2-3 weeks ago - adjustments, massage. Patient reports having an injection to her L hip May 26. Feels there was some short term pain/sx relief with the injection but then pain/sx returned. She is using tylenol typically once a day. Occasionally using celebrex. She is using a heating pad a couple of times a day to her LB/buttock/hip. States her ITB feels tight. She reports having a foam roller and has used this on her ITB in the past but not lately. L hip pain/sx increased with extended standing/walking/ stairs. She has pain with getting into/out of the car and with rolling over. Sleep is interrupted. Pain range 4- 8/10. Date of Last Physician Visit 07/09/23 Current Work Status Retired Precautions Treatment Precautions/Contraindications skin cancer, OA, CVA Assessment Assessment/Impression Patient is a 62 year old female with L hip pain, LB/ Buttock pain, impaired L hip ROM, limping/antalgic gait, core/hip/glut weakness, limited tolerance for extended standing/walking/stairs, difficulty with car transfers/ rolling over due to increased pain. Pain range 4-8/10. Patient is tight, tender, reactive with palpation L LB, L SI region, L buttock, L lateral hip, L ITB. Pelvic alignment assessed and equal this session. Patient with hx of LB/sciatica issues, some recent flare ups. Core/hip/ glut weakness noted with exercises and with patient hx of chronic LB/sciatica issues and now chronic L hip pain. L hip ROM is tight, limited due to pain. Gait is limping, antalgic, lacking hip ext. Able to loosen up with some MT treatment this session. Also able to initiate exercises and a HEP this session. Tolerated well. Patient would benefit from skilled PT for pain/sx management, improved L hip ROM, core/hip/glut/LE strengthening, improved gait, improved tolerance for extended standing/walking/ stairs, and establishment of HEP. Plan of Care Rehabilitation Potential Good Physical Therapy Goals 1. Decrease L hip/LB/buttock pain to less than/equal to 3/ 10 with daily activities and with the progression of PT activities over the next 3-4 weeks. 2. Improve L hip ROM over the next 4-6 weeks for improved gait mechanics, return to transfers with ease, and return to reciprocal stair negotiation. 3. Improve hip/glut/LE/core strength over the next 8-10 weeks for return to transfers with ease, normal gait, reciprocal stairs, extended standing/walking without flare up of pain. 4. Patient will be I with HEP within 10 weeks for progression toward above goals, ongoing self management of pain/sx, ongoing self improvements in L hip ROM/mobility/strength, and for return to daily activities/standing/walking without flare up of pain. Coordination/Communication With Referral Source Treatment Plan/Direct Interventions Manual Therapy,Therapeutic Exercises Frequency/Duration 1x/week Patient Will Be Discharged From Therapy Completion of LTG(s),Skills Plateau,Independent w/HEP, Independently Progressing Evaluation Billing Untimed Code Treatment Minutes 25 Complexity Moderate Certification Information Initial Certification Date 08/02/23 Ending Certification Date 10/31/23 Provider Signature Shows Agreement With POC & Medical Necessity Physician Signature & Date Requested Please Sign/Date Here Physician Comment/Change : Physician NPI Number #
== END 2023-12-17 16:59 | disposition home or self-care (01) ==
PROVIDERS: PCP Family Medicine; Visit Provider Orthopaedic Surgery Sports Medicine
DX: M76.892 Other specified enthesopathies of left lower limb, excluding foot (principal); M25.552 Pain in left hip; Z74.09 Other reduced mobility; R26.89 Other abnormalities of gait and mobility; M79.18 Myalgia, other site; Z51.89 Encounter for other specified aftercare
CPT/HCPCS: 72148; 97110; 97140; 97162

== ENCOUNTER 2023-12-10 09:00 | Outpatient (CLI) | payer MEDICARE, SELFPAY ==
--- OUTSIDE RECORDS SUMMARY | 2023-12-10 09:03 | XMS_ITS | Encounter Summary ---
Author Organization [facility] Address [address] [place] [address] Care Team Providers Care Undercover Cop Name Role Phone Claudette Retana MD Unavailable Kory Magallon MD Primary Care Provider [phone] Encounter Details Date Type Department Care Team (Latest Contact Info) Description 11/14/2023 Travel Social History Tobacco Use Types Packs/Day Years Used Date Smoking Tobacco: Never Smokeless Tobacco: Never Alcohol Use Standard Drinks/Week Comments Yes 0 (1 standard drink = 0.6 oz pur e alcohol) occassional PHQ-2 Answer Date Recorded PHQ-2 Score 0 11/14/2023 Adolescent Education Answer Date Record ed Getting School Help Needed Not on file 03/06 Sex and Gender Information Value Date Recorded Sex Assigned at Female 04/21/2021 9:03 AM DUST BOX WORKER Gender Identity Female 04/21/2021 9:03 AM DUST BOX WORKER Sexual Orientation Not on file documented as of this encounter Plan of Treatment Not on file documented as of this encounter Visit Diagnoses Not on filedocumented in this encounter Care Teams Undercover Cop Relationship Specialty Start Date End Date Kory Magallon MD [facility] [address] [place] [address] PCP - General Family Medicine 11/14/23 Claudette Retana MD [address] [address] Assigned Surgical Provider 11/17/22 documented as of this encounter
--- OUTSIDE RECORDS SUMMARY | 2023-12-10 09:03 | XMS_ITS | Clinical Summary ---
Author Organization [facility] Address [place], [place] [address] Care Team Providers Care Licensed Clinical Psychologist Name Role Phone Colby Chakraborty Unavailable [phone] Vikas Barajas MD Unavailable [phone] Kory Vang MD Primary Care Provide r Allergies No known active allergies Medications Medication Sig Dispensed Refills Start Date End Date Status aspirin 325 mg tabletIndications:Acut e CVA (cerebrovascular accident) (HC) Take 1 tablet by mouth once daily with a meal. 100 tablet 0 02/21/2016 Active ibuprofen (ADVIL) 200 mg tablet Take 1 tablet by mouth 3 times daily with meals. 0 05/16/2016 Active ACETAMINOPHEN/DIPHENHY DRAMINE (TYLENOL PM ORAL) Take 1 tablet by mouth at bedtime. Pt. Takes tylenol pm as needed for sleep Active rosuvastatin (CRESTOR) 5 mg tablet Take 1 Tablet by mouth. 08/24/2023 Active pantoprazole (PROTONIX) 40 mg delayed-release tablet 11/22/2023 Ac tive celecoxib (CELEBREX) 200 mg capsule 200 MG ORALLY TWICE A DAY NEEDED FOR PAIN 05/24/2023 Active rosuvastatin (Crestor) 5 mg tablet Crestor Active gabapentin (NEURONTIN) 300 mg capsuleIndications:Lum bar radiculopathy Take 1 Capsule (300 mg) by mouth at bedtime. 30 Capsule 2 11/27/2023 Active Active Problems Problem Noted Date Diagnosed Date S/P radiofrequency ablation operation for arrhyt hmia 09/26/2020 Chest pain, non-cardiac 09/26/2020 History of stroke 11/02/2016 Hyperlipidemia 11/02/2016 SVT (supraventricular tachycardia) 09/26/2016 Costal chondritis 05/16/2016 Acute CVA (cerebrovascular accident) 02/19/2016 Expressive aphasia 02/19/2016 Generalized weakness 02/19/2016 Chest pain 11/14/2010 GERD (gastroesophageal reflux disease) 1 Encounters Date Type Department Care Team Description 11/28/2023 Telephone [facility] [address] [place] [address] Rudy Henderson MD Medication Management (CONCERNS) 11/27/2023 10:00 AM CDT Office Visit [facility] [address] [place] [address] Rudy Henderson MD Musculoskeletal Problem (Consult Back pain) 11/27/2023 Travel from Last 3 Months Immunizations Name Administration Dates Next Due COVID-19 vaccine ([employer] NTDecision Pace 30mcg/0.3mL) PF, MDV 03/16/2021,08/13/2020,07/23/2020 Influenza RIV4 (Age [...] Never Smokeless Tobacco: Never Tobacco Cessation:Counseling Given: No Alcohol Use Standard Drinks/Week Comments Yes 0 [...] Sign Reading Time Taken Comments Blood Pressure 110/77 11/27/2023 10:04 AM CDT Pulse 77 11/27/2023 10:04 AM CDT Temperature 36.7 ??C (98.1 ??F) 11/27/2023 10:04 AM C DT Respiratory Rate 11 09/27/2016 11:45 AM CDT Oxygen Saturation 97% 11/27/2023 10:04 AM CDT Inhaled Oxygen Concentration - - Weight 117 kg (258 lb) 11/27/2023 10:04 AM CDT Height 172.7 cm (5' 8) 12/19/2021 2:30 PM CDT Body Mass Index 39.23 12/19/2021 2:30 PM CDT Plan of Treatment Upcoming Encounters Date Type Department Care Team (Late st Contact Info) Description 12/10/2023 9:40 AM CDT Office Visit [facility] at [facility] [address] [place] [address] Rudy Henderson MD [address] [place] [address] Arrived 01/30/2024 10:00 AM CDT Office Visit [facility] [address] [place] [address] Rudy Henderson MD [address] [place] [address] Health Maintenance Due Date Last Done Comments Depression screening for age 12+ 1972 HIV for age 15-65 11/02/1975 Hepatitis C screening for age 18-79 1978 Colonoscopy through age 75 2005 Mammogram for age 45-75 2005 Lipids for age 45-75 09/17/2021 09/17/2016, 06/21/2016, 02/20/2016 BMI (ht and wt on same day) for age 18+ 12/19/2022 12/19/2021, 09/26/2020, 11/12/2019, Additional history exists Influenza for age 50-64 01/19/2024 03/15/20, 01/26/2020, 03/04/2019, Additional history exists Pap test for age 21-65 02/19/2026 02/19/2023, 2022 Tetanus booster 06/22/2029 06/22/2019, 06/30/2010 Zoster (shingles) series for age 50+ Completed 06/05/2018, 04/03/2018, 05/11/2016 Tdap Completed 06/22/2019, 06/30/2010 COVID-19 vaccine series Completed 04/17/20, 02/13/2022, 11/07/2021, Additional history exists Pneumococcal series for age 6-64 Aged Out No longer eligible based on patient's age to complete this topic Procedures Procedure Name Priority Date/Time Associated Diagnosis Comments AMB EPIDURAL STEROID INJECTION Routine 12/10/2023 8:15 AM CDT Spinal stenosis of lumbar region with neurogenic claudication Lumbar radiculopathy Lumbar facet arthropathy Spondylolisthesis of lumbar region HPV THIN PREP Routine 02/19/2023 12:20 PM CDT LIPID POCT [facility] ONLY Routine 09/17/2016 10:37 AM CDT Carotid artery disease, unspecified laterality (HC) from Last 3 Months or Most Recently Relevant to Health Maintenance Results * HPV HIGH RISK (02/19/2023 12:20 PM CDT) TYPE 16 Negative Negative 02/23/2023 7:05 AM CDT [facility] TYPE 18 Negative Negative 02/23/2023 7:05 AM CDT [facility] OTHER HIGH RISK TYPES Negative Negative 02/23/2023 7:05 AM CDT [facility] Other (Cervical) 02/19/2023 12:20 PM CDT 02/20/2023 4:28 PM CDT Narrative [facility] - 02/23/2023 7:05 AM CDT HPV types 16, 18, 31, 33, 35, 39, 45, 51, 52, 56, 58, 59, 66 and 68 DNA were undetectable or below the pre-set threshold. Methodology: Narinder Mirian 4800 HPV Test Alie Hampton PA-C MICROBIOLOGY [facility] [address] [place] [address], * LIPID POCT [facility] ONLY (09/17/2016 10:37 AM CDT) LDL CHOLESTEROL 44 mg/dL [facility] Blood BLOOD SPECIMEN / Unknown 09/17/2016 10:37 AM CDT Marlin Sharpe NP CHEMISTRY [facility] [address] [place] [address] from Last 3 Months or Most Recently Relevant to Health Maintenance Advance Directives * Full Code (Latest Code Status on File) Date Activated Date Inactivated Comments 09/27/2016 6:23 AM 09/27/2016 3:38 PM * Full Code Date Activated Date Inactivated Comments 02/20/2016 1:01 AM 02/21/2016 6:12 PM Question Answer Comments Code Status Discussion: Per Existing Order * Full Code Date Activated Date Inactivated Comments 11/14/2010 3:28 AM 11/14/2010 5:18 PM Care Teams Licensed Clinical Psychologist Relationship Specialty [place] [address] [place] [address] PCP - General Internal Medicine 05/10/23 Colby Chakraborty PA [address] [place] [address] [place] [address] Cardiology - EP Cardiovascular Disease 11/07/19 Vikas Barajas MD [address] [place] [address] [place] [id number] Cardiology - EP Cardiovascular Disease 11/02/16
--- OUTSIDE RECORDS SUMMARY | 2023-12-10 09:03 | XMS_ITS | Referral Summary ---
Author Organization [facility] Address [address] [place] [address] Care Team Providers Care Food Cooking Machine Operator Name Role Phone Claudette Retana MD Unavailable Kory Magallon MD Primary Care Provider Encounters Date Type Department Care Team Description 11/14/[address] [address] Claudette Retana MD Appointment (Difficulty scheduling Dr Retana for 1 year follow up) 11/14/2023 Travel 11/14/2023 10:30 AM CDT Office Visit [address] [address] Claudette Retana MD Solar lentigo (Primary Dx); History of nonmelanoma skin cancer from Last 3 Months Allergies Active Allergy Reactions Criticality Noted Date Comments No Known Drug Allergy 06/13/2010 Medications Medication Sig Dispensed Refills Start Date End Date Status aspirin 325 MG tabletIndications:Cer ebrovascular accident (CVA), unspecified mechanism (H) Take 1 tablet (325 mg) by mouth daily 180 tablet 3 03/15/2016 Active rosuvastatin (CRESTOR) 5 MG tablet Take 1 tablet by mouth daily at 2 pm 08/24/2023 Active Turmeric (QC TUMERIC COMPLEX) 500 MG CAPS Acti ve Active Problems Problem Noted Date Diagnosed Date History of nonmelanoma skin cancer 03/24/2021 Non-melanoma skin cancer 02/05/2020 Morbid obesity 01/26/2020 History of supraventricular tachycardia 02/22/20 18 Hyperlipidemia 11/02/2016 SVT (supraventricular tachycardia) (H24) 017 Obesity, unspecified obesity severity, unspecified obesity type 06/18/2016 Cerebrovascular accident (CVA), unspecified mech anism 02/28/2016 Expressive aphasia 02/19/2016 Generalized weakness 02/19/2016 GERD (gastroesophageal reflux disease) 1 Resolved Problems Problem Noted Date Diagnosed Date Resolved Date Cervical radiculopathy 01/28/202005/27 Right hip pain 02/03/2019 08/07/2019 Chronic pain of right knee 07/17/2018 0 09/09/2018 Advanced directives, counseling/discussion 03/15/2016 11/04/2023 Overview: Discussed Advance Directive planning with patient; information given to patient to review. Kelsie Best LPN Immunizations Name Administration Dates Next Due Influenza [...] Sex Assigned at Female 04/21/2021 9:03 AM TUFTING MACHINE FIXER Gender Identity Female 04/21/2021 9:03 AM TUFTING MACHINE FIXER Sexual Orientation Not on file Last Filed Vital Signs Vital Sign Reading Time Taken Comments Blood Pressure 116/80 05/21/2020 9:28 AM TUFTING MACHINE FIXER Pulse 51 05/21/2020 9:28 AM TUFTING MACHINE FIXER Temperature 36.1 ??C (97 ??F) 05/21/2020 9:28 AM TUFTING MACHINE FIXER Respiratory Rate 16 05/21/2020 9:28 AM TUFTING MACHINE FIXER Oxygen Saturation 96% 05/21/2020 9:28 AM TUFTING MACHINE FIXER Inhaled Oxygen Concentration - - Weight 112.3 kg (247 lb 9.6 oz) 05/21/2020 9:28 AM TUFTING MACHINE FIXER Height 171.5 cm (5' 7.5) 03/24/2019 10 :42 AM TUFTING MACHINE FIXER Body Mass Index 38.21 03/24/2019 10:42 AM TUFTING MACHINE FIXER Plan of Treatment Not on file Procedures Procedure Name Priority Date/Time Associated Diagnosis Comments BASIC METABOLIC PANEL Routine 02/24/2019 9:25 AM CDT Routine history and physical examination of adult LIPID REFLEX TO DIRECT LDL PANEL Routine 02/24/2019 9:25 AM CDT Routine history and physical examination of adult MAMMOGRAM - [facility] SCAN Routine 07/18/2018 ABSTRACT PAP ([facility] EXTERNAL RESULT) Routine 04/25/2018 ABSTRACT HPV ([facility] EXTERNAL RESULT) Routine 04/25/2018 COLONOSCOPY - [facility] SCAN Routine 01/07/2018 HEPATITIS C ANTIBODY Routine 06/11/2016 10:43 AM TUFTING MACHINE FIXER Routine general medical examination at a health care facility from Last 3 Months or Most Recently Relevant to Health Maintenance Results * Lipid panel reflex to direct LDL Fasting (02/24/2019 9:25 AM CDT) Cholesterol 148 <200 mg/dL 02/24/2019 1:20 PM CDT [facility] Triglycerides 64 <150 mg/dL 02/24/2019 1:21 PM CDT [facility] Comment:Fasting specimen HDL Cholesterol 70 >49 mg/dL 9 1:23 PM CDT [facility] LDL Cholesterol Calculated 65 <100 mg/dL 02/24/2019 1:23 PM CDT [facility] Comment:Desirable: <100 mg/d l Non HDL Cholesterol 78 <130 mg/dL 02/24/2019 1:23 PM CDT [facility] Blood specimen (specimen) 02/24/2019 9:25 AM CDT 02/24/2019 9:26 AM CDT Kwan De La Cruz MD LAB - BLOOD ORDERABL ES [facility] [address] [place] [address] * Basic metabolic panel (Ca, Cl, CO2, Creat, Gluc, K, Na, BUN) (02/24/2019 9:25 AM CDT) Sodium 141 133 - 144 mmol/L 02/24/2019 1:10 PM CDT [facility] Potassium 4.1 3.4 - 5.3 mmol/L 02/24/2019 1:10 PM CDT [facility] Chloride 107 94 - 109 mmol/L 02/24/2019 1:10 PM CDT [facility] Carbon Dioxide 30 20 - 32 mmol/L 02/24/2019 1:23 PM CDT [facility] Anion Gap 4 3 - 14 mmol/L 02/24/2019 1:23 PM CDT [facility] Glucose 95 70 - 99 mg/dL 02/24/2019 1:23 PM CDT [facility] Comment:Fasting specimen Urea Nitrogen 19 7 - 30 mg/dL 02/24/2019 1:23 PM CDT [facility] Creatinine 0.79 0.52 - 1.04 mg/dL 02/24/2019 1:23 PM CDT [facility] GFR Estimate 82 >60 mL/min/{1. 73_m2} 02/24/2019 1:23 PM CDT [facility] Comment: Non GFR Calc Starting 05/06/2018, serum creatinine based estimated GFR (eGFR) will be calculated using the Chronic Kidney Disease Epidemiology Collaboration (CKD-EPI) equation. GFR Estimate If Black >90 >60 mL/min/{1. 73_m2} 02/24/2019 1:23 PM CDT [facility] Comment: GFR Calc Starting 05/06/2018, serum creatinine based estimated GFR (eGFR) will be calculated using the Chronic Kidney Disease Epidemiology Collaboration (CKD-EPI) equation. Calcium 9.3 8.5 - 10.1 mg/dL 02/24/2019 1:23 PM CDT [facility] Blood specimen (specimen) 02/24/2019 9:25 AM CDT 02/24/2019 9:26 AM CDT Kwan De La Cruz MD LAB - BLOOD ORDERABL ES Performing Organization Address City/[facility]/ZIP Co de Phone Number [facility] [address] [place] [address] * Mammogram - [facility] Scan (07/18/2018) Anatomical Region Laterality Modality Other Narrative 07/18/2018 Elias Ramos Sent to Abstract Quality Initiatives Please abstract the following data from this visit with this patient into the appropriate field in Epic: Mammogram done on this date: 07/18/2018 (approximately), by this group: [facility], results were Neg. ?? Patient Reported IMG MAMMOGRAPHY ORDE RABROBERT * ABSTRACT HPV-NO CHARGE (04/25/2018) HPV Abstract See Scanned Document [facility] 04/25/2018 Narrative [facility] - 04/25/2018 Kelsie Best LPN Please abstract the following data from this visit with this patient into the appropriate field in [facility]: Other Tests found in the patient's chart through Chart Review/Care Everywhere: Pap smear done by this group [facility] (Robert Krueger) on this date: 04-25-2018 HPV done at [facility] on 04-25-2018 SEE CARE EVERYWHERE [facility] N[facility]ED [facility] Provider Outside LAB - HIM EXTERNAL R ESULT [facility] [address] [facility] [place] [address], [facility] [phone] * ABSTRACT PAP-NO CHARGE (04/25/2018) PAP-ABSTRACT See Scanned Document [facility] 04/25/2018 Narrative [facility] - 04/25/2018 Kelsie Best LPN Please abstract the following data from this visit with this patient into the appropriate field in Epic: Other Tests found in the patient's chart through Chart Review/Care Everywhere: Pap smear done by this group [facility] ([facility]) on this date: 04-25-2018 HPV done at [facility] on 04-25-2018 SEE CARE EVERYWHERE [facility] NAM[facility] Provider Outside LAB - HIM EXTERNAL R ESULT [facility] [address] [place], [place] [id number] [place] [address] * Colonoscopy - [facility] Scan (01/07/2018) Narrative [facility] - 01/07/2018 Kelsie Best LPN Please abstract the following data from this visit with this patient into the appropriate field in Epic: Other Tests found in the patient's chart through Chart Review/Care Everywhere: Colonoscopy done on 01-07-2018 at [facility]-repeat in 5 years SEE CARE EVERYWHERE [facility] N[facility] Provider Outside PROCEDURES * Hepatitis C antibody (06/11/2016 10:43 AM TUFTING MACHINE FIXER) Hepatitis C Antibody Nonreactive Assay performance characteristics have not been established for newborns, infants, and children [facility] Blood specimen (specimen) 06/11/2016 10:43 AM TUFTING MACHINE FIXER 06/11/2016 10:44 AM TUFTING MACHINE FIXER Kwan De La Cruz MD LAB - BLOOD ORDERABL ES [facility] [address] [place] [address] from Last 3 Months or Most Recently Relevant to Health Maintenance Care Teams Food Cooking Machine Operator Relationship Specialty Start Date End Date Kory Magallon MD [facility] [address] [address] PCP - General Family Medicine 11/14/23 Claudette Retana MD [address] [place] [address] [address] [place] [address] Assigned Surgical Provider 11/17/22
--- OUTSIDE RECORDS SUMMARY | 2023-12-10 09:03 | XMS_ITS | Encounter Summary ---
Author Organization [facility] Address [address] [place] [address]. [place] [address] Care Team Providers Care Policy Cancellation Clerk Name Role Phone Claudette Retana MD Unavailable Kory Magallon MD Primary Care Provider + [phone] Reason for Visit * Reason Onset Date Comments Appointment 11/14/[address] Retana for 1 year follow up Encounter Details Date Type Department Care Team (Late st Contact Info) Description 11/14/[address] [place] [address] Claudette Retana MD [address] [facility] [address] [place] [address] Appointment (Difficulty scheduling Dr Retana for 1 year follow up) Social History Tobacco Use Types Packs/Day Years [...] Sex Assigned at Female 04/21/2021 9:03 AM BOAT MOTOR MECHANIC Gender Identity Female 04/21/2021 9:03 AM BOAT MOTOR MECHANIC Sexual Orientation Not on file documented as of this encounter Miscellaneous Notes * Telephone Encounter - Eliza Braun RN - 11/14/2023 1:46 PM CDT Pt called and informed that we do not have any openings with [facility] due to her template being closed. Offered to schedule with PA and she declined and stated she will schedule at another clinic close to home. Eliza Braun RN on 11/14/2023 at 1:50 PM * Telephone Encounter - Karen Michael - 11/14/2023 11:39 AM CDT Health Call Center Phone Message May a detailed message be left on voicemail: yes Reason for Call: Other: Pt is requesting follow up skin check with Dr. Retana for +1 year, no results are producing is the clinic able to find this appt in the system? Please call pt to advise Action Taken: Other: [facility] Derm Travel Screening: Not Applicable Date of Service: documented in this encounter Plan of Treatment Not on file documented as of this encounter Visit Diagnoses Not on filedocumented in this encounter Care Teams Policy Cancellation Clerk Relationship Specialty Start Date End Date Kory Magallon MD [facility] [address] [place] [address] PCP - General Family Medicine 11/14/23 Claudette Retana MD [address] [place] [address] [address] [place] [address] Assigned Surgical Provider 11/17/22 documented as of this encounter
--- OUTSIDE RECORDS SUMMARY | 2023-12-10 09:03 | XMS_ITS | Clinical Summary ---
Author Organization [facility] Address [address] [place] [address] Care Team Providers Care Process Development Chemist Name Role Phone Claudette Retana MD Unavailable Kory Magallon MD Primary Care Provider Allergies Active Allergy Reactions Criticality Noted Date [...] information given to patient to review. Kelsie Nasir METAL BONDER Encounters Date Type Department Care Team Description 11/14/2023 10:30 AM CDT Office Visit [address] [phone] Claudette Retana MD Solar lentigo (Primary Dx); History of nonmelanoma skin cancer 11/14/[address] [phone] Claudette Retana MD Appointment (Difficulty scheduling Dr Retana for 1 year follow up) 11/14/2023 Travel from Last 3 Months Immunizations Name Administration Dates Next Due Influenza [...] Sex Assigned at Female 04/21/2021 9:03 AM EXTRUDING MACHINE OPERATOR Gender Identity Female 04/21/2021 9:03 AM EXTRUDING MACHINE OPERATOR Sexual Orientation Not on file Last Filed Vital Signs Vital Sign Reading Time Taken Comments Blood Pressure 116/80 05/21/2020 9:28 AM EXTRUDING MACHINE OPERATOR Pulse 51 05/21/2020 9:28 AM EXTRUDING MACHINE OPERATOR Temperature 36.1 ??C (97 ??F) 05/21/2020 9:28 AM EXTRUDING MACHINE OPERATOR Respiratory Rate 16 05/21/2020 9:28 AM EXTRUDING MACHINE OPERATOR Oxygen Saturation 96% 05/21/2020 9:28 AM EXTRUDING MACHINE OPERATOR Inhaled Oxygen Concentration - - Weight 112.3 kg (247 lb 9.6 oz) 05/21/2020 9:28 AM EXTRUDING MACHINE OPERATOR Height 171.5 cm (5' 7.5) 03/24/2019 10 :42 AM EXTRUDING MACHINE OPERATOR Body Mass Index 38.21 03/24/2019 10:42 AM EXTRUDING MACHINE OPERATOR Plan of Treatment Health Maintenance Due Date Last Done Comments ANNUAL REVIEW OF HM ORDERS 1960 CT COLONOGRAPHY 1960 FIT 1960 FLEX SIG 1960 sDNA (Cologuard) 1960 HIV SCREENING 11/02/1975 LIPID 02/25/2020 02/24/2019, 08/2017, 06/11/2016 MAMMO SCREENING 07/29/2020 07/29/2018, 05/2018, 07/18/2018, Additional history exists RSV VACCINE ( & 60+) (1 - 1-dose 60+ series) 2020 ADVANCE CARE PLANNING 03/15/2021 03/15/2016 GLUCOSE 02/24/2022 02/24/2019, 08/2017, 06/11/2016 MEDICARE ANNUAL WELLNESS VISIT 08/15/2022 08/15/2021, 08/08/2020, 06/22/2019, Additional history exists COLONOSCOPY 01/07/2023 01/07/2018, 12/19, 2010 COLORECTAL CANCER SCREENING 01/07/2023 INFLUENZA VACCINE (#1) 2024 , 03/07/2022, 03/15/2021, Additional history exists HPV TEST 02/20/2028 02/19/2023, 120 11/2017, 04/01/2013 PAP 02/20/2028 02/19/2023, 1211/2017, 04/25/2018, Additional history exists DTAP/TDAP/TD IMMUNIZATION (3 - Td or Tdap) 06/22/2029 06/22/2019, 06/30/2010 HEPATITIS C SCREENING Completed 06/11/2016 ZOSTER IMMUNIZATION Completed 06/05/2018, 04/03/2018, 05/11/2016 COVID-19 Vaccine Completed 04/17/2023, , 11/07/2021, Additional history exists PHQ-2 (once per calendar year) Completed 11/14/2023, 11/09/2022, 04/28/2021, Additional history exists HPV IMMUNIZATION Aged Out No longer e [...] and physical examination of adult MAMMOGRAM - HIM SCAN Routine 07/18/2018 ABSTRACT PAP ([facility] EXTERNAL RESULT) Routine 04/25/2018 ABSTRACT HPV ([facility] EXTERNAL RESULT) Routine 04/25/2018 COLONOSCOPY - HIM SCAN Routine 01/07/2018 HEPATITIS C ANTIBODY Routine 06/11/2016 10:43 AM EXTRUDING MACHINE OPERATOR Routine general medical examination at a [facility] facility from Last 3 Months or Most Recently Relevant to Health Maintenance Results * Lipid panel reflex to direct LDL Fasting (02/24/2019 9:25 AM CDT) Cholesterol 148 <200 mg/dL 02/24/2019 1:20 PM CDT [facility] Triglycerides 64 <150 mg/dL 02/24/2019 1:21 PM CDT [facility] Comment:Fasting specimen HDL Cholesterol 70 >49 mg/dL 9 1:23 PM CDT [facility] LDL Cholesterol Calculated 65 <100 mg/dL 02/24/2019 1:23 PM CDT [facility] Comment:Desirable: <100 mg/d l Non HDL Cholesterol 78 <130 mg/dL 02/24/2019 1:23 PM CDT [facility] Blood specimen (specimen) 02/24/2019 9:25 AM CDT 02/24/2019 9:26 AM CDT Kwan De La Cruz MD LAB - BLOOD ORDERABL ES [facility] [address] [place] [address] * Basic metabolic panel (Ca, Cl, CO2, Creat, Gluc, K, Na, BUN) (02/24/2019 9:25 AM CDT) Pathologist [facility] Sodium 141 133 - 144 mmol/L 02/24/2019 1:10 PM CDT [facility] Potassium 4.1 3.4 - 5.3 mmol/L 02/24/2019 1:10 PM CDT [facility] Chloride 107 94 - 109 mmol/L 02/24/2019 1:10 PM CDT [facility] Carbon Dioxide 30 20 - 32 mmol/L 02/24/2019 1:23 PM CDT [facility] Anion Gap 4 3 - 14 mmol/L 02/24/2019 1:23 PM CDT [facility] Glucose 95 70 - 99 mg/dL 02/24/2019 1:23 PM CDT [facility] Comment:Fasting specimen Urea Nitrogen 19 7 - 30 mg/dL 02/24/2019 1:23 PM CDT [facility] Creatinine 0.79 0.52 - 1.04 mg/dL 02/24/2019 1:23 PM CDT [facility] GFR Estimate 82 >60 mL/min/{1. 73_m2} 02/24/2019 1:23 PM CDT [facility] Comment: Non GFR Calc Starting 05/06/2018, serum creatinine based estimated GFR (eGFR) will be calculated using the Chronic Kidney Disease Epidemiology Collaboration (CKD-EPI) equation. GFR Estimate If Black >90 >60 mL/min/{1. 73_m2} 02/24/2019 1:23 PM CDT [facility] Comment: GFR Calc Starting 05/06/2018, serum creatinine based estimated GFR (eGFR) will be calculated using the Chronic Kidney Disease Epidemiology Collaboration (CKD-EPI) equation. Calcium 9.3 8.5 - 10.1 mg/dL 02/24/2019 1:23 PM CDT [facility] Blood specimen (specimen) 02/24/2019 9:25 AM CDT 02/24/2019 9:26 AM CDT Kwan De La Cruz MD LAB - BLOOD ORDERABL ES [facility] [address] [place] [address] * Mammogram - HIM Scan (07/18/2018) Anatomical Region Laterality Modality Other Narrative 07/18/2018 Elias Ramos Sent to Abstract Quality Initiatives Please abstract the following data from this visit with this patient into the appropriate field in Epic: Mammogram done on this date: 07/18/2018 (approximately), by this group: [facility], results were Neg. ?? Patient Reported IMG MAMMOGRAPHY DANNIELLE SPENCER * ABSTRACT HPV-NO CHARGE (04/25/2018) HPV Abstract See Scanned Document [facility] 04/25/2018 Narrative [facility] - 04/25/2018 Kelsie Best LPN Please abstract the following data from this visit with this patient into the appropriate field in Epic: Other Tests found in the patient's chart through Chart Review/Care Everywhere: Pap smear done by this group [facility] on this date: 04-25-2018 HPV done at [facility] on 04-25-2018 SEE CARE EVERYWHERE [facility] Provider Outside LAB - HIM EXTERNAL R ESULT [facility] [address] [place] [address], [facility] [phone] * ABSTRACT PAP-NO CHARGE (04/25/2018) PAP-ABSTRACT See Scanned Document [facility] 04/25/2018 Narrative [facility] - 04/25/2018 Kelsie Best LPN Please abstract the following data from this visit with this patient into the appropriate field in Epic: Other Tests found in the patient's chart through Chart Review/Care Everywhere: Pap smear done by this group [facility] ([facility] on this date: 04-25-2018 HPV done at [facility] on 04-25-2018 SEE CARE EVERYWHERE [facility] Provider Outside LAB - [facility] EXTERNAL R ESULT Performing Organization Address City/[facility]/ZIP Co de Phone Number [facility] [address] [place] [address], [facility] [phone] * Colonoscopy - [facility] Scan (01/07/2018) Narrative [facility] - 01/07/2018 Kelsie Best LPN Please abstract the following data from this visit with this patient into the appropriate field in Epic: Other Tests found in the patient's chart through Chart Review/Care Everywhere: Colonoscopy done on 01-07-2018 at [facility]-repeat in 5 years SEE CARE EVERYWHERE [facility] Provider Outside PROCEDURES * Hepatitis C antibody (06/11/2016 10:43 AM EXTRUDING MACHINE OPERATOR) Hepatitis C Antibody Nonreactive Assay performance characteristics have not been established for newborns, infants, and children [facility] Blood specimen (specimen) 06/11/2016 10:43 AM EXTRUDING MACHINE OPERATOR 06/11/2016 10:44 AM EXTRUDING MACHINE OPERATOR Kwan De La Cruz MD LAB - BLOOD ORDERABL ES [facility] [address] [place] [address] from Last 3 Months or Most Recently Relevant to Health Maintenance Care Teams Process Development Chemist Relationship Specialty Start Date End Date Kory Magallon MD [facility] [address] [place] [address] PCP - General Family Medicine 11/14/23 Claudette Retana MD [address] [place] [address] [address] [place] [address] Assigned Surgical Provider 11/17/22
--- OUTSIDE RECORDS SUMMARY | 2023-12-10 09:03 | XMS_ITS | Continuity of Care Document ---
Author Organization [facility] Address [address] [place] [address] Phone Care Team Providers Care Surgical Assistant Certified Name Role Phone Manjula Perez MD Unavailable [...] Protein Dna Antibody, Single Strand Dna Antibody, Rosebud Nuclear Antigen Antibodies Antinuclear Antibodies Advance Directives Directive Yes / No Effective Date File Name No Information Encounters Encounter Description Practice Location Reason(s) For Visit Diagnoses Date Provider Providers Copied on Encounter [facility], [address], [place], [address], [place] tel:[phone] [facility] , No Information Chris Fair. [facility] [address], [place], [address], [place]. tel:[phone] Office/Outpa tient Visit, New [facility], [address], [place], [address], [place] tel:[phone] [facility] , Abnormal Lab Study (chief complaint) Musculoske letal pain (chief complaint) Raised antibody titerMyalgia Chris Fair. [facility] [address], [place], [address], [place]. tel:[phone] Referring Provider: Manjula Amador, [facility] [address], [place], [address]. tel:[phone] Family History Family Member Type Diagnosis Age At Onset Mother Problem Arthritis Mother Problem Thyroid disorder Maternal grandmother Problem Arthritis Immunizations Vaccine Date Status Comments COVID-19 Pfizer administered Source: Othe r Provider COVID-19 Pfizer administered Source: Othe r Provider Payers Payer name Insurance type Covered alliance party ID Meaghan flores(s) [facility] [id number] Social History Type Description Quantity Date Captured [...]
--- OUTSIDE RECORDS SUMMARY | 2023-12-10 09:04 | XMS_ITS | Encounter Summary ---
Author Organization [facility] Address [address] [place] [address]. [place] [address] Care Team Providers Care Technology Analyst Name Role Phone Claudette Retana MD Unavailable Kory Magallon MD Primary Care Provider + [phone] Reason for Visit * Reason Comments Skin Check Pt is here for hola dsouza [facility]. R sideburn area has brown spot. Encounter Details Date Type Department Care Team (Late st Contact Info) Description 11/14/2023 10:30 AM CDT Office Visit [address] [phone] Claudette Retana MD [address] [facility] [address] [place] [address] Solar lentigo (Primary Dx); History of nonmelanoma skin cancer Social History Tobacco Use Types Packs/Day Years [...] Sex Assigned at Female 04/21/2021 9:03 AM BAG HANGER Gender Identity Female 04/21/2021 9:03 AM BAG HANGER Sexual Orientation Not on file documented as of this encounter Patient Instructions * Patient Instructions* Angela AlmarazLISANDRA - 11/14/2023 10:30 AM CDT Images from the original note were not included. Checking for Skin Cancer You can help find cancer early by checking your skin each month. There are 3 main kinds of skin cancer: melanoma, basal cell carcinoma, and squamous cell carcinoma. Doing monthly skin checks is the best way to find new connelly, sores, or skin changes. Follow these instructions for checking your skin. The ABCDEs of checking moles for melanoma Check your moles or growths for signs of melanoma using ABCDE: Asymmetry: The sides of the mole or growth don???t match. Border: The edges are ragged, notched, or blurred. Color: The color within the mole or growth varies. It could be black, brown, chicas, white, or shades of red, presley, or blue. Diameter: The mole or growth is larger than ?? inch or 6 mm (size of a pencil eraser). Evolving: The size, shape, texture, or color of the mole or growth is changing. ABCDE's of moles on light skin. ABCDE's of moles on dark skin may be harder to identify. Checking for other types of skin cancer Basal cell carcinoma or squamous cell carcinoma cause symptoms like: A spot or mole that looks different from all other connelly on your skin Changes in how an area feels, such as itching, tenderness, or pain Changes in the skin's surface, such as oozing, bleeding, or scaliness A sore that doesn't heal New swelling, redness, or spread of color beyond the border of a mole Who???s at risk? Anyone of any skin color can get skin cancer. But you're at greater risk if you have: Fair skin that freckles easily and [place] instead of tanning Light-colored or red hair Light-colored eyes Many moles or abnormal moles on your skin A long history of unprotected exposure to sunlight or tanning beds A history of many blistering sunburns as a child or teen A family history of skin cancer Been exposed to radiation or chemicals A weakened immune system Been exposed to arsenic If you've had skin cancer in the past, you're at high risk of having it again. How to check your skin Do your monthly skin checkups in front of a full-length mirror. Use a room with good lighting so it's easier to see. Use a hand mirror to look at hard-to-see places like your buttocks and back. You can also have a trusted friend or family member help you with these checks. Check every part of your body, including your: Head (ears, face, neck, and scalp) Torso (front, back, sides, and under breasts) Arms (tops, undersides, and armpits) Hands (palms, backs, and fingers, including under the nails) Lower back, buttocks, and genitals Legs (front, back, and sides) Feet (tops, soles, toes, including under the nails, and between toes) Watch for new spots on your skin or a spot that's changing in color, shape, size. If you have a lot of moles, take digital photos of them each month. Make sure to take photos both up close and from a distance. These can help you see if any moles change management director time. Know your skin Most skin changes aren't cancer. But if you see any changes in your skin, call your healthcare provider right away. Only they can tell you if a change is a problem. If you have skin cancer, seeing your provider can be the first step to getting the treatment that could save your life. [employer] last reviewed this educational content on 02/17/2021 ?? [id number] [employer]. All rights reserved. This information is not intended as a substitute for professional medical care. Always follow your healthcare professional's instructions. documented in this encounter Progress Notes * Claudette Retana MD - 11/14/2023 10:30 AM CDT [facility] Dermatology Note Encounter Date: Nov 14, 2023 Office Visit Dermatology Problem List: 0. NUB - left mid back, s/p bx 11/09/22 Last skin check: 11/09/22 1. History of NMSC - BCC, right lower cheek, s/p Mohs 12/15/2015 2. History of stroke, several years ago 3. 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 Has twin grandaughters. Family history: Negative for melanoma. Assessment & Plan: # History of nonmelanoma skin cancer, no clinical evidence of recurrence noted today. - ABCDEs: Counseled ABCDEs of melanoma: Asymmetry, Border (irregularity), Color (not uniform, changes in color), Diameter (greater than 6 mm which is about the size of a pencil eraser), and Evolving (any changes in preexisting moles). - Sun protection: Counseled SPF30+ sunscreen, UPF clothing, sun avoidance, tanning bed avoidance. - Recommended regular skin exams. # Solar lentigines. Including R cheek and forehead - Assured patient of nature, report changes Procedures Performed: none Follow-up: 1 year(s) in-person, or earlier for new or changing lesions Staff and Scribe: Scribe Disclosure: I, Sumaya Multani, am serving as a scribe to document services personally performed by Claudette Retana MD based on data collection and the provider's statements to me. Provider Disclosure: The documentation recorded by the scribe accurately reflects the services I personally performed and the decisions made by me. Claudette Retana MD D[facility] Department [facility] Dermat[facility] , [facility]: , CC: Skin Check (Pt is here for annual FBSC. R sideburn area has brown spot.) HPI: Ms. Emily Caldera is a(n) 63 year old female who presents today as a return patient for skin check. Today, patient reports a newer brown spot on the R sideburn. Not tender. Nothing bleeding, crusting, or changing othgerwise Patient is otherwise feeling well, without additional skin concerns. Labs Reviewed: Last Derm Path 11/09/22 Final Diagnosis A(1). Skin, left mid back, shave: - Mild spongiotic dermatitis and lymphohistiocytic inflammation -resolved not seen Physical Exam: Vitals: There were no vitals taken for this visit. SKIN: Total skin including buttock areas was performed. The exam included the head/face, neck, botharms, chest, back, abdomen, both legs, digits and/or nails. - Scattered brown macules on sun exposed areas. Left mid back is normal - There is no erythema, telangectasias, nodularity, or pigmentation on the site of prior NMSC .. - No other lesions of concern on areas examined. Medications: Current Outpatient Medications Medication Sig Dispense Refill aspirin 325 MG tablet Take 1 tablet (325 mg) by mouth daily 180 tablet 3 rosuvastatin (CRESTOR) 5 MG tablet Take 1 tablet by mouth daily at 2 pm Turmeric (QC TUMERIC COMPLEX) 500 MG CAPS No current facility-administered medications for this visit. Past Medical History: Patient Active Problem List Diagnosis Cerebrovascular accident (CVA), unspecified mechanism (H) Obesity, unspecified obesity severity, unspecified obesity type History of supraventricular tachycardia Expressive aphasia Generalized weakness GERD (gastroesophageal reflux disease) Hyperlipidemia SVT (supraventricular tachycardia) (H24) Morbid obesity (H) Non-melanoma skin cancer History of nonmelanoma skin cancer Past Medical History: Diagnosis Date History of nonmelanoma skin cancer History of supraventricular tachycardia 02/21/2018 Stroke (H) CC Claudette Retana MD [address] [place] [address] on close of this encounter. documented in this encounter Nursing Notes * Angela Almaraz LPN - 11/14/2023 10:30 AM CDT Emily Caldera's goals for this visit include: Chief Complaint Patient presents with Skin Check Pt is here for annual FBSC. R sideburn area has brown spot. She requests these members of her care team be copied on today's visit information: PCP: Kory Magallon Referring Provider: Claudette Retana MD [address] [address] There were no vitals taken for this visit. Do you need any medication refills at today's visit? Angela Almaraz LPN on 11/14/2023 at 11:05 AM documented in this encounter Plan of Treatment Not on file documented as of this encounter Visit Diagnoses Diagnosis Solar lentigo- Primary Other dyschromia History of nonmelanoma skin cancer Personal history of other malignant neoplasm of skin documented in this encounter Care Teams Technology Analyst Relationship Specialty Start Date End Date Kory Magallon MD [facility] [address]. [place] [address] PCP - General Family Medicine 11/14/23 Claudette Retana MD [address] [place] [address] Assigned Surgical Provider 11/17/22 documented as of this encounter
--- OUTSIDE RECORDS SUMMARY | 2023-12-10 09:04 | XMS_ITS | Encounter Summary ---
Author Organization [facility] Address [address] [place] [address] Care Team Providers Care Gas Engine Repairer Name Role Phone Kory Noland MD Primary Care Provider + Kwan De La Cruz MD Primary Care Provider [phone] Murali Hickey PA-C Primary Care Provider Kwan De La Cruz MD Primary Care Provider [phone] Kwan De La Cruz MD Unavailable [phone] Kwan De La Cruz MD Unavailable [phone] Brandie Jones BED WORKER CINETECHNICIAN Unavailable Kwan De La Cruz MD Unavailable [phone] Mechelle Mtz BED WORKER CINETECHNICIAN Unavailable + Claudette Retana MD Unavailable Miguelito Membreno MD Unavailable [phone] Dayna Guzman BED WORKER CNM Unavailable Unava Adrian Navarrete DPM Unavailable [phone] Kwan De La Cruz MD Unavailable [phone] Mechelle Mtz APRN CINETECHNICIAN Unavailable + Kwan De La Cruz MD Unavailable [phone] Mechelle Mtz BED WORKER CINETECHNICIAN Unavailable + Mechelle Mtz BED WORKER CINETECHNICIAN Unavailable + Claudette Retana MD Unavailable Kory Magallon MD Primary Care Provider Reason for Visit * Reason Onset Date Comments Abstract 01/04/2012 Please Abstract Encounter Details Date Type Department Care Team (Late st Contact Info) Description 01/04/2012 Telephone [facility] [address] [place] [address] [place] [address] [place] [address] Abstract (Please Abstract ) Social History Tobacco Use Types Packs/Day Years Used Date Smoking Tobacco: Never Alcohol Use Standard Drinks/Week Comments Yes 0 (1 standard drink = 0.6 oz pur e alcohol) occassional Sex and Gender Information Value Date Recorded Sex Assigned at Female 04/21/2021 9:03 AM KILN BURNER Gender Identity Female 04/21/2021 9:03 AM KILN BURNER Sexual Orientation Not on file documented as of this encounter Miscellaneous Notes * Telephone Encounter - Eliza Dover - 01/04/2012 4:05 PM CDT Please abstract the following data from this visit with this patient into the appropriate field in [facility]: Mammogram done on this date: is due will schedule future appointment, by this group: [facility] location , results were normal. Pap smear done on this date: is due will schedule future appointment , by this group: [facility] location , results were normal. documented in this encounter Plan of Treatment Not on file documented as of this encounter Visit Diagnoses Not on filedocumented in this encounter Additional Health Concerns Infection Onset Date Last Indicated Resolved Time Rule Out COVID-19 11/26/2019 11/26/2019 11/27/2019 7:57 PM CDT documented as of this encounter Care Teams Gas Engine Repairer Relationship Specialty [place] [address] [place] [address] PCP - General 07/25/08 02/28/16 [place] [address] [place] [address] PCP - General Family Practice 02/29/16 12/16/17 Murali Hickey PA-C [address] [place] [address] PCP - General Family Practice 12/17/17 02/16/18 [place] [address] [place] [address] PCP - General Family Practice 02/17/18 06/19/23 Kwan De La Cruz MD [address] [place] [address] PCP - Assigned PCP 03/04/16 07/22/18 Kory Magallon MD [facility] [address], [place] [address] PCP - General Family Medicine 11/14/23 Kwan De La Cruz MD [address] [place] [address] Assigned PCP 03/04/16 10/25/18 Brandie Jones APRN CINETECHNICIAN [facility]5 [place] [address] Assigned PCP 10/26/18 03/14/19 Kwan De La Cruz MD [address] [place] [address] Assigned PCP 03/15/19 03/05/20 Mechelle Mtz APRN CINETECHNICIAN [facility] [place] [address] Assigned PCP 03/06/20 01/28/21 Claudette Retana MD [address] [place] [address] Assigned Surgical Provider 03/11/2010/26/22 [place] [address] [facility] [place] [address] Assigned Musculoskeletal Provider 03/11/20 08/27/20 Dayna Guzman APRN CNM Assigned OBGYN Provider 03/11/20 10/22/20 Adrian Montesinos, DPM [address] [place] [address] Assigned Musculoskeletal Provider 08/28/20 10/22/20 Kwan De La Cruz MD [address] [place] [address] Assigned PCP 01/29/21 05/27/21 Mechelle Mtz APRN CINETECHNICIAN [facility] [place] [address] Assigned PCP 05/28/21 07/29/21 [place] [address] [place] [id number] Assigned PCP 07/30/21 03/09/22 Mechelle Mtz APRN CINETECHNICIAN [facility] [place] [address], [place] [address] Assigned PCP 03/10/22 05/04/22 Mechelle Mtz APRN CINETECHNICIAN [facility] [place] [address] [place] [address] Assigned PCP 07/14/22 01/25/23 Claudette Retana MD [address] [place] [address] 98 [place] [address] Assigned Surgical Provider 11/17/22 documented as of this encounter
--- OUTSIDE RECORDS SUMMARY | 2023-12-10 09:04 | XMS_ITS | Encounter Summary ---
Author Organization [facility] Address [address] [place] [address] Care Team Providers Care Muffler Hand Name Role Phone Kwan De La Cruz MD Primary Care Provider [phone] Kwan De La Cruz MD Unavailable [phone] Mechelle Mtz APRN WOODWORKING CRAFTSMAN Unavailable + Claudette Retana MD Unavailable Miguelito Membreno MD Unavailable [phone] Dayna Guzman SNOW BLOWER CNM Unavailable Unava ilable Adrian Montesinos DPM Unavailable [phone] Kwan De La Cruz MD Unavailable [phone] Mechelle Mtz SNOW BLOWER WOODWORKING CRAFTSMAN Unavailable + Kwan De La Cruz MD Unavailable [phone] Mechelle Mtz APRN WOODWORKING CRAFTSMAN Unavailable + Mechelle Mtz SNOW BLOWER WOODWORKING CRAFTSMAN Unavailable + Claudette Retana MD Unavailable Kory Magallon MD Primary Care Provider Encounter Details Date Type Department Care Team (Late st Contact Info) Description 01/26/2020 [facility] [place] [facility] [address] [phone] Ginette Padilla RN Social History Tobacco Use Types Packs/Day Years Used Date Smoking Tobacco: Never Smokeless Tobacco: Never Alcohol Use Standard Drinks/Week Comments Yes 0 (1 standard drink = 0.6 oz pur e alcohol) occassional PHQ-2 Answer Date Recorded PHQ-2 Score 0 09/18/2019 Sex and Gender Information Value Date Recorded Sex Assigned at Female 04/21/2021 9:03 AM MILITARY EDUCATION COORDINATOR Gender Identity Female 04/21/2021 9:03 AM MILITARY EDUCATION COORDINATOR Sexual Orientation Not on file COVID-19 [...] on filedocumented in this encounter Care Teams Muffler Hand Relationship Specialty Start Date End Date Kwan De La Cruz MD PCP - General Family Practice 02/17/18 06/19/23 Kory Magallon MD [facility] [address] [place] [address] PCP - General Family Medicine 11/14/23 Kwan De La Cruz MD [address] [place] [address] Assigned PCP 03/15/19 03/05/20 Mechelle Mtz APRN WOODWORKING CRAFTSMAN [facility] [address], [place] [address] Assigned PCP 03/06/20 01/28/21 Claudette Retana MD [address] [place] [address] 98 [place] [address] Assigned Surgical Provider 03/11/2010/26/22 [place] [address] [place] [address] Assigned Musculoskeletal Provider 03/11/20 08/27/20 Dayna Guzman APRN CNM Assigned OBGYN Provider 03/11/20 10/22/20 Adrian Montesinos DPM [address] [place] [address] Assigned Musculoskeletal Provider 08/28/20 10/22/20 [place] [address] [place] [address] Assigned PCP 01/29/21 05/27/21 Mechelle Mtz APRN WOODWORKING CRAFTSMAN [facility] [place] [address] [place] [address] Assigned PCP 05/28/21 07/29/21 [place] [address] [place] [address] Assigned PCP 07/30/21 03/09/22 Mechelle Mtz APRN WOODWORKING CRAFTSMAN [facility] [place] [place] [address] Assigned PCP 03/10/22 05/04/22 Mechelle Mtz APRN WOODWORKING CRAFTSMAN [facility] [address] [address], [place] [address] Assigned PCP 07/14/22 01/25/23 Claudette Retana MD [address] [place] [address] Assigned Surgical Provider 11/17/22 documented as of this encounter
--- OUTSIDE RECORDS SUMMARY | 2023-12-10 09:04 | XMS_ITS | Encounter Summary ---
Author Organization [facility] Address [address] [place] [address] Care Team Providers Care Internal Corrosion Specialist Name Role Phone Kwan De La Cruz MD Primary Care Provider [phone] Claudette Retana MD Unavailable Kwan De La Cruz MD Unavailable [phone] Mechelle Mtz FAST FOOD SHIFT LEAD HOME HEALTH CAREGIVER Unavailable + Kwan De La Cruz MD Unavailable [phone] Mechelle Mtz FAST FOOD SHIFT LEAD HOME HEALTH CAREGIVER Unavailable + Mechelle Mtz APRN HOME HEALTH CAREGIVER Unavailable + Claudette Retana MD Unavailable Kory Magallon MD Primary Care Provider [phone] Encounter Details Date Type Department Care Team (Late st Contact Info) Description 05/01/2021 [facility] [place] [address] [address] Nasrin Smith, RN Social History Tobacco Use Types Packs/Day Years Used Date Smoking Tobacco: Never Smokeless Tobacco: Never Alcohol Use Standard Drinks/Week Comments Yes 0 (1 standard drink = 0.6 oz pur e alcohol) occassional PHQ-2 Answer Date Recorded PHQ-2 Score 0 04/28/2021 Sex and Gender Information Value Date Recorded Sex Assigned at Female 04/21/2021 9:03 AM DRY CLEANING MACHINE OPERATOR HELPER Gender Identity Female 04/21/2021 9:03 AM DRY CLEANING MACHINE OPERATOR HELPER Sexual Orientation Not on file COVID-19 Exposure Response Date Recorded In the last month, have you been in contact with someone who was confirmed or suspected to have Coronavirus / COVID-19? No / Unsure 04/28/2021 1:37 PM DRY CLEANING MACHINE OPERATOR HELPER documented as of this encounter Plan of Treatment Not on file documented as of this encounter Visit Diagnoses Not on filedocumented in this encounter Care Teams Internal Corrosion Specialist Relationship Specialty Start Date End Date Kwan De La Cruz MD PCP - General Family Practice 02/17/18 06/19/23 K[facility]all[facility] [address], [place] [address] PCP - General Family Medicine 11/14/23 Claudette Retana MD [address] [place] [address] 98 [place] [address] Assigned Surgical Provider 03/11/20 10/26/22 Kwan De La Cruz MD [address] [place] [address] Assigned PCP 01/29/21 05/27/21 Mechelle Mtz APRN HOME HEALTH CAREGIVER [facility] [address], [place] [phone] Assigned PCP 05/28/21 07/29/21 Kwan De La Cruz MD [address] [place] [address] Assigned PCP 07/30/21 03/09/22 Mechelle Mtz APRN HOME HEALTH CAREGIVER [facility] [address] [place] [address] Assigned PCP 03/10/22 05/04/22 Mechelle Mtz APRN HOME HEALTH CAREGIVER [facility] [address] [place] [address] Assigned PCP 07/14/22 01/25/23 Claudette Retana MD [address] [place] [address] Assigned Surgical Provider 11/17/22 documented as of this encounter
--- OUTSIDE RECORDS SUMMARY | 2023-12-10 09:04 | XMS_ITS | Encounter Summary ---
Author Organization [facility] Address [address] [place] [address] Care Team Providers Care Commissary Production Supervisor Name Role Phone Kwan De La Cruz MD Primary Care Provider [phone] Claudette Retana MD Unavailable Kwan De La Cruz MD Unavailable [phone] Mechelle Mtz PROGRAM PROPOSALS COORDINATOR SPOUT POSITIONER Unavailable + Kwan De La Cruz MD Unavailable [phone] Mechelle Mtz PROGRAM PROPOSALS COORDINATOR SPOUT POSITIONER Unavailable + Mechelle Mtz APRN SPOUT POSITIONER Unavailable + Claudette Retana MD Unavailable Kory Magallon MD Primary Care Provider [phone] Encounter Details Date Type Department Care Team (Late st Contact Info) Description 05/01/2021 [facility] [place] [facility] [place] [address] [address] Ginette Padilla, RN Social History Tobacco Use Types Packs/Day Years Used Date Smoking Tobacco: Never Smokeless Tobacco: Never Alcohol Use Standard Drinks/Week Comments Yes 0 (1 standard drink = 0.6 oz pur e alcohol) occassional PHQ-2 Answer Date Recorded PHQ-2 Score 0 04/28/2021 Sex and Gender Information Value Date Recorded Sex Assigned at Female 04/21/2021 9:03 AM FOOD TECHNICIAN Gender Identity Female 04/21/2021 9:03 AM FOOD TECHNICIAN Sexual Orientation Not on file COVID-19 Exposure Response Date Recorded In the last month, have you been in contact with someone who was confirmed or suspected to have Coronavirus / COVID-19? No / Unsure 04/28/2021 1:37 PM FOOD TECHNICIAN documented as of this encounter Plan of Treatment Not on file documented as of this encounter Visit Diagnoses Not on filedocumented in this encounter Care Teams Commissary Production Supervisor Relationship Specialty Start Date End Date Kwan De La Cruz MD PCP - General Family Practice 02/17/18 06/19/23 Kory Magallon MD [facility] [address] [address] PCP - General Family Medicine 11/14/23 Claudette Retana MD [address] [place] [address] 98 [place], [place] 5828[address] Assigned Surgical Provider 03/11/20 10/26/22 Kwan De La Cruz MD [address] [place] [address] Assigned PCP 01/29/21 05/27/21 Mechelle Mtz APRN SPOUT POSITIONER [facility] [address], [place] [phone] Assigned PCP 05/28/21 07/29/21 Kwan De La Cruz MD [address] [place] [address] Assigned PCP 07/30/21 03/09/22 Mechelle Mtz APRN SPOUT POSITIONER [facility] [address] [place] [address] Assigned PCP 03/10/22 05/04/22 Mechelle Mtz APRN SPOUT POSITIONER [facility] [place] [address] [place] [address] Assigned PCP 07/14/22 01/25/23 Claudette Retana MD [address] [place] [address] Assigned Surgical Provider 11/17/22 documented as of this encounter
--- OUTSIDE RECORDS SUMMARY | 2023-12-10 09:04 | XMS_ITS | Encounter Summary ---
Author Organization [facility] Address [address] [place] [address] Care Team Providers Care Addiction Professional Name Role Phone Kwan De La Cruz MD Primary Care Provider [phone] Claudette Retana MD Unavailable Kwan De La Cruz MD Unavailable [phone] Mechelle tMz ORE STORAGE DRIER EQUIPMENT COORDINATOR Unavailable + Kwan De La Cruz MD Unavailable [phone] Mechelle Mtz ORE STORAGE DRIER EQUIPMENT COORDINATOR Unavailable + Mechelle Mtz APRN EQUIPMENT COORDINATOR Unavailable + Claudette Retana MD Unavailable Kory Magallon MD Primary Care Provider [phone] Encounter Details Date Type Department Care Team (Late st Contact Info) Description 05/01/2021 [facility] [place] [address] [address] Carmen Zuniga Social History Tobacco Use Types Packs/Day Years Used Date Smoking Tobacco: Never Smokeless Tobacco: Never Alcohol Use Standard Drinks/Week Comments Yes 0 (1 standard drink = 0.6 oz pur e alcohol) occassional PHQ-2 Answer Date Recorded PHQ-2 Score 0 04/28/2021 Sex and Gender Information Value Date Recorded Sex Assigned at Female 04/21/2021 9:03 AM PRINTING SCREEN ASSEMBLER Gender Identity Female 04/21/2021 9:03 AM PRINTING SCREEN ASSEMBLER Sexual Orientation Not on file COVID-19 Exposure Response Date Recorded In the last month, have you been in contact with someone who was confirmed or suspected to have Coronavirus / COVID-19? No / Unsure 04/28/2021 1:37 PM PRINTING SCREEN ASSEMBLER documented as of this encounter Plan of Treatment Not on file documented as of this encounter Visit Diagnoses Not on filedocumented in this encounter Care Teams Addiction Professional Relationship Specialty Start Date End Date Kwan De La Cruz MD PCP - General Family Practice 02/17/18 06/19/23 Kory Magallon MD [facility] [address], [place] [address] PCP - General Family Medicine 11/14/23 Claudette Retana MD [address] [place] [address] 98 [place], [place] 6[address] Assigned Surgical Provider 03/11/20 10/26/22 Kwan De La Cruz MD [address] [place] [address] Assigned PCP 01/29/21 05/27/21 Mechelle Mtz APRN EQUIPMENT COORDINATOR [facility] [address] [place] [phone] Assigned PCP 05/28/21 07/29/21 Kwan De La Cruz MD [address] [place] [address] Assigned PCP 07/30/21 03/09/22 Mechelle Mtz APRN EQUIPMENT COORDINATOR [facility] [address] [place] [address] Assigned PCP 03/10/22 05/04/22 Mechelle Mtz APRN EQUIPMENT COORDINATOR [facility] [place] [address] [place] [address] Assigned PCP 07/14/22 01/25/23 Claudette Retana MD [address] [place] [address] Assigned Surgical Provider 11/17/22 documented as of this encounter
--- OUTSIDE RECORDS SUMMARY | 2023-12-10 09:04 | XMS_ITS | Encounter Summary ---
Author Organization [facility] Address [address] [place] [address] Care Team Providers Care Soft Metals Engraver Hand Name Role Phone Oppel, Murali Kothari PA-C Primary Care Provider Kwan De La Cruz MD Primary Care Provider [phone] Kwan De La Cruz MD Unavailable [phone] Kwan De La Cruz MD Unavailable [phone] Brandie Jones DIE SET UP WORKER FITNESS AND WELLNESS DIRECTOR Unavailable Kwan De La Cruz MD Unavailable Mechelle Mtz APRN FITNESS AND WELLNESS DIRECTOR Unavailable + Claudette Retana MD Unavailable Miguelito Membreno MD Unavailable [phone] Dayna Guzman APRN CNM Unavailable Unava ilAdrian Lopez DPM Unavailable [phone] Kwan De La Cruz MD Unavailable [phone] Mechelle Mtz APRN FITNESS AND WELLNESS DIRECTOR Unavailable + Kwan De La Cruz MD Unavailable [phone] Mechelle Mtz APRN FITNESS AND WELLNESS DIRECTOR Unavailable + SmithMechelle schmidt APRN FITNESS AND WELLNESS DIRECTOR Unavailable + Claudette Retana MD Unavailable Kory Magallon MD Primary Care Provider Reason for Visit * Reason Onset Date Comments Outreach 01/15/2018 vip mammo att 1 Encounter Details Date Type Department Care Team (Late st Contact Info) Description 01/15/2018 Telephone [facility] [address] [place] [address] OpMurali finley PA-C [address] [place], [place] [phone] Outreach (vip mammo att 1 ) Social History Tobacco Use Types Packs/Day Years Used Date Smoking Tobacco: Never Smokeless Tobacco: Never Alcohol Use Standard Drinks/Week Comments Yes 0 (1 standard drink = 0.6 oz pur e alcohol) occassional Sex and Gender Information Value Date Recorded Sex Assigned at Female 04/21/2021 9:03 AM EMPLOYEE BENEFITS INSURANCE AGENT Gender Identity Female 04/21/2021 9:03 AM EMPLOYEE BENEFITS INSURANCE AGENT Sexual Orientation Not on file documented as of this encounter Miscellaneous Notes * Telephone Encounter - Priscilla Fatima - 01/15/2018 12:08 PM CDT 01/15/2018 Attempt 1 Contacted patient in regards to scheduling VIP mammogram Message on voicemail Patient is also due for - Comments: Outreach Pharmacy Messenger Priscilla Fatima documented in this encounter Plan of Treatment Not on file documented as of this encounter Visit Diagnoses Not on filedocumented in this encounter Additional Health Concerns Infection Onset Date Last Indicated Resolved Time Rule Out COVID-19 11/26/2019 11/26/2019 11/27/2019 7:57 PM CDT documented as of this encounter Care Teams Soft Metals Engraver Hand Relationship Specialty Start Date End Date Murali Hickey PA-C [address] [place] [address] PCP - General Family Practice 12/17/17 02/16/18 [place] [address] [place] [address] PCP - General Family Practice 02/17/18 06/19/23 Kwan De La Cruz MD [facility]5 [place] [address] PCP - Assigned PCP 03/04/16 07/22/18 Kory Magallon MD [facility] [address] [place], [place] [phone] PCP - General Family Medicine 11/14/23 Kwan De La Cruz MD [facility]5 [place] [address] Assigned PCP 03/04/16 10/25/18 Brandie Jones APRN FITNESS AND WELLNESS DIRECTOR [address] [place] [address] [id number] Assigned PCP 10/26/18 03/14/19 Kwan De La Cruz MD [address] [place] [address] Assigned PCP 03/15/19 03/05/20 Mechelle Mtz APRN FITNESS AND WELLNESS DIRECTOR [facility] [address], [place] [phone] Assigned PCP 03/06/20 01/28/21 Claudette Retana MD [address] [place] [address] [id number] Assigned Surgical Provider 03/11/2010/26/22 [place] [address] [facility] [place] [address] Assigned Musculoskeletal Provider 03/11/20 08/27/20 Dayna Guzman APRN CNM Assigned OBGYN Provider 03/11/20 10/22/20 Adrian Montesinos DPM [address] [facility] [place] [address] Assigned Musculoskeletal Provider 08/28/20 10/22/20 Kwan De La Cruz MD [address] [place] [address] Assigned PCP 01/29/21 05/27/21 Mechelle Mtz APRN FITNESS AND WELLNESS DIRECTOR [facility] [place] [address] Assigned PCP 05/28/21 07/29/21 Kwan De La Cruz MD [facility] [place] [address] Assigned PCP 07/30/21 03/09/22 Mechelle Mtz APRN FITNESS AND WELLNESS DIRECTOR [facility] [place] [address] Assigned PCP 03/10/22 05/04/22 Mechelle Mtz APRN FITNESS AND WELLNESS DIRECTOR NPI: [id number] [place] [address] [facility]IC[facility]ANS [address], [place] [address] Assigned PCP 07/14/22 01/25/23 Claudette Retana MD [address] [place] [address] Assigned Surgical Provider 11/17/22 documented as of this encounter
== END 2023-12-10 09:01 | disposition home or self-care (01) ==
LOC: INJ CL 09:01
PROVIDERS: PCP Family Medicine; Visit Provider Family Medicine
DX: M54.16 Radiculopathy, lumbar region (principal); M51.36 Other intervertebral disc degeneration, lumbar region
CPT/HCPCS: 64483; J1100; Q9966

== ENCOUNTER 2024-03-12 10:11 | Outpatient (CLI) | payer MEDICARE, SELFPAY ==
--- OUTSIDE RECORDS SUMMARY | 2024-03-12 10:14 | XMS_ITS | Continuity of Care Document ---
Author Organization [facility] Address [address] [place] [address] Phone Care Team Providers Care Html Web Developer Name Role Phone Lester ROMAN, PhD, Joaquin Unavailable Unavai lable Allergies, Adverse Reactions, Alerts Substance Reaction Status Criticality No Known Allergies Active No Inform ation Medications Medication Instructions Dosage Effective Dates (start - stop) Status Comments TRAMADOL HCL (unknown strength) Not Available - Active GABAPENTIN (unknown strength) Not Available - Active CELECOXIB (unknown strength) Not Available - Active ROSUVASTATIN CALCIUM (unknown strength) Not Available - Active PANTOPRAZOLE SODIUM (unknown strength) Not Available - Active VAZALORE (unknown strength) Not Available - Active Procedures Procedure Date Office/Outpatient Visit,[facility] 2023 Advance Directives Directive Yes / No Effective Date File Name No Information Encounters Encounter Description Practice Location Reason(s) For Visit Diagnoses Date Provider Providers Copied on Encounter [facility], [address], [place], [place], [id number], [place] tel:[phone] [facility] - [facility] No Information Lester Nuñez. [facility], [address] [place] [address] [address], [place], [address], [place]. tel:[phone] [facility], [address], [place], [place], [id number], [place] tel:[phone] [facility] - [facility] No Information Tamera Rivera. [facility], [address] [place] [address], [address], [place], [address], [place]. tel:[phone] Office/Outpat ient Visit,New, Mod [facility], [address], [place], [id number], [place] tel:[phone] [facility] - [facility] Spondylolisthe sis, lumbar regionSpinal stenosis, lumbar region with neurogenic claudication Lester Nuñez. [facility], [address], [place], [address], [place]. tel:[phone] Referring Provider: Rudy Polanco, [facility] [address], [place], [address]. tel:[phone] Family History Family Member Type Diagnosis Age At Onset Mother Problem (finding) Diabetes mellitus Father Problem (finding) Cancer, unknown type Payers Payer name Insurance type Covered alliance party ID Authoriza tilivier(s) [employer] Medicare [facility] CI [id number] Social History Type Description Quantity Date Captured Comments Alcohol Use Details Unknown Caffeine Use Details Unknown Tobacco Use Status No Information Smoking Status No Information Sex Female Chief Complaint And Reason For Visit No Information Reason For Referral Reason For Referral No Information Plan Of Treatment Date Type Action Status Appointment Emily Caldera BOOKED Appointment Emily Caldera BOOKED Appointment Emily Caldera BOOKED History Of Present Illness Encounter Date Complaint History Of Prese nt Illness No Information Functional Status Date Functional Assessmen t No Information Instructions Date Instruction Additional Infor mation No Information Assessments Type Assessment Date No Information Patient Care Teams Name Effective Dates (start - stop) Status Members No Information
--- OUTSIDE RECORDS SUMMARY | 2024-03-12 10:14 | XMS_ITS | Clinical Summary ---
Author Organization [facility] Address [place], [place] [address] Care Team Providers Care Sheet Cutter Name Role Phone Colby Chakraborty Unavailable [phone] Vikas Barajas MD Unavailable [phone] Kory Vang MD Primary Care Provide r Unavailable Allergies No known active allergies Medications Medication Sig Dispensed Refills Start Date End Date Status aspirin 325 mg tabletIndications:A cute CVA (cerebrovascular accident) (HC) Take 1 tablet by mouth once daily with a meal. 100 tablet 0 02/21/2016 Active ibuprofen (ADVIL) 200 mg tablet Take 1 tablet by mouth 3 times daily with meals. 0 05/16/2016 Active ACETAMINOPHEN/DIPHE NHYDRAMINE (TYLENOL PM ORAL) Take 1 tablet by mouth at bedtime. Pt. Takes tylenol pm as needed for sleep Active rosuvastatin (CRESTOR) 5 mg tablet Take 1 Tablet by mouth. 08/24/2023 Active pantoprazole (PROTONIX) 40 mg delayed-release tablet 11/22/2023 Active celecoxib (CELEBREX) 200 mg capsule 200 MG ORALLY TWICE A DAY NEEDED FOR PAIN 05/24/2023 Active rosuvastatin (Crestor) 5 mg tablet Crestor Active traMADoL (ULTRAM) 50 mg tabletIndications:S pondylolisthesis of lumbar region,Spinal stenosis of lumbar region with neurogenic claudication,Lumbar facet arthropathy,Lumbar radiculopathy Take 1 Tablet (50 mg) by mouth 3 times daily if needed for Pain. 36 Tablet 1 01/30/2024 Active gabapentin (NEURONTIN) 300 mg capsuleIndications: Lumbar radiculopathy TAKE 1 CAPSULE BY MOUTH AT BEDTIME 30 Capsule 2 03/03/2024 Active gabapentin (NEURONTIN) 300 mg capsuleIndications: Lumbar radiculopathy Take 1 Capsule (300 mg) by mouth at bedtime. 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 Acute CVA (cerebrovascular accident) 02/19/2016 Expressive aphasia 02/19/2016 Generalized weakness 02/19/2016 Chest pain 11/14/2010 GERD (gastroesophageal reflux disease) 1 Encounters Date Type Department Care Team Description 03/03/[address] [address] Rudy Henderson MD Refill Request ( gabapentin (NEURONTIN) 300 mg capsule [Pharmacy Med) 03/02/[address] [address] Rudy Henderson MD Refill Request (Gabapentin) 01/30/2024 10:45 AM CDT Ancillary Procedure [address] [address] 01/30/2024 10:00 AM CDT Office Visit [address] [address] Rudy Henderson MD Musculoskeletal Problem (Follow up back pain, ANDREW on 12/10/23) 01/30/2024 Travel 12/11/[address] [address] Rudy Henderson MD Other (Procedure on 12/10/2023) from Last 3 Months Immunizations Name Administration Dates Next Due COVID-19 vaccine (Loc[employer] 30mcg/0.3mL) PF, MDV 03/16/2021,08/13/2020,07/23/2020 Influenza RIV4 (Age [...] = 0.6 oz pur e alcohol) rarely Financial Resource Strain Answer Date R ecorded Difficulty of Paying Living Expenses Not on file 05/20/2021 Difficulty of Paying Living Expenses Not on file 05/20/2021 Sex and Gender Information Value Date Recorded Sex Assigned at Not on file Gender Identity Not on file Sexual Orientation Not on file Obstetrics History Last Filed Vital Signs Vital Sign Reading Time Taken Comments Blood Pressure 119/79 01/30/2024 10:04 AM CDT Pulse 65 01/30/2024 10:04 AM CDT Temperature 36.7 ??C (98.1 ??F) 01/30/2024 1 0:04 AM CDT Respiratory Rate 11 09/27/2016 11:4 5 AM CDT Oxygen Saturation 98% 01/30/2024 10: 04 AM CDT Inhaled Oxygen Concentration - - Weight 119.9 kg (264 lb 6.4 oz) 024 10:04 AM CDT shoes on Height 172.7 cm (5' 8) 12/19/2021 2:30 PM CDT Body Mass Index 40.2 12/19/2021 2:30 PM CDT Plan of Treatment Upcoming Encounters Date Type Department Care Team (Latest Contact Info) Description 04/07/2024 12:30 PM OPERATIONS PROJECT MANAGER Hospital Encounter [facility] [address] [place] [address] Joaquin Batista MD [address] [place], [place] [id number] 04/07/2024 12:30 PM OPERATIONS PROJECT MANAGER - 04/07/2024 5:21 PM OPERATIONS PROJECT MANAGER Surgery [facility] [address] [place] [address] Joaquin Batista MD [address] [place] [address] Posterior Spine Fusion L4 to: L5 Scheduled Procedures Name Priority Associated Diagnoses Date/Ti me FUSION POSTERIOR SPINE LEVEL 01 Elective Spondylolisthesis, Lumbar M43.16 Stenosis, Lumbar - w/Neurogenic Claudication M48.062 04/07/2024 12:30 PM OPERATIONS PROJECT MANAGER FUSION TRANSFORAMINAL SPINAL INTERBODY LEVEL 1 Elective Spondylolisthesis, Lumbar M43.16 Stenosis, Lumbar - w/Neurogenic Claudication M48.062 04/07/2024 12:30 PM OPERATIONS PROJECT MANAGER Health Maintenance Due Date Last Done Comments Depression screening for age 12+ 1972 HIV for age 15-65 11/02/1975 Hepatitis C screening for age 18-79 1978 Colonoscopy through age 75 2005 Mammogram for age 45-75 2005 Lipids for age 45-75 09/17/2021 09/17/2016, 06/21/2016, 02/20/2016 BMI (ht and wt on same day) for age 18+ 12/19/2022 12/19/2021, 09/26/2020, 11/12/2019, Additional history exists COVID-19 vaccine series ( season) 2024 04/17/2023, 02/13/2022, 11/07/2021, Additional history exists Influenza for age 50-64 01/19/2024 03/15/20 21, 01/26/2020, 03/04/2019, Additional history exists Pap test for age 21-65 02/19/2026 02/19/2023, 2022 Tetanus booster 06/22/2029 06/22/2019, 06/30/2010 Zoster (shingles) series for age 50+ Completed 06/05/2018, 04/03/2018, 05/11/2016 Tdap Completed 06/22/2019, 06/30/2010 Pneumococcal series for age 6-64 Aged Out No longer eligible based on patient's age to complete this topic Procedures Procedure Name Priority Date/Time Associated Diagnosis Comments XR SPINE LUMBAR MINIMUM 4 VIEWS Routine 01/30/2024 11:02 AM CDT Spondylolisthesis of lumbar region Spinal stenosis of lumbar region with neurogenic claudication Lumbar facet arthropathy Lumbar radiculopathy HPV HIGH RISK Routine 02/19/2023 12:20 PM CDT LIPID POCT [facility] ONLY Routine 09/17/2016 10:37 AM CDT Carotid artery disease, unspecified laterality (HC) from Last 3 Months or Most Recently Relevant to Health Maintenance Results * XR SPINE LUMBAR MINIMUM 4 VIEWS (01/30/2024 11:02 AM CDT) Anatomical Region Laterality Modality Spine, LUMBAR SPINE Computed Rad iography 01/30/2024 3:40 PM CDT Impressions 01/30/2024 3:40 PM CDT Degenerative anterolisthesis L4 on L5 with up to 5 millimeters of motion with flexion/extension. Dictated by Kory Arambula MD @ 01/30/2024 3:40:58 PM (Electronically Signed) Narrative 01/30/2024 3:40 PM CDT For Patients: ??As a result of the Century Cures Act, medical imaging exams and procedure reports are released immediately into your electronic medical record. ??You may view this report before your referring provider. ??If you have questions, please contact your health care provider. INDICATION: Spondylolisthesis TECHNIQUE: 4-view lumbar spine. COMPARISON: none FINDINGS: Degenerative spondylolisthesis of L4 on L5 is present with 5 millimeters of motion with flexion/extension. Disc space narrowing L4-5. Facet degeneration L4 through S1. No vertebral body compression fracture. Procedure Note Kory Arambula MD - 01/30/2024 For Patients: As a result of the Cures Act, medical imagingexams and procedure reports are released immediately into your electronicmedical record. You may view this report before your referring provider.If you have questions, please contact your health care provider. INDICATION: Spondylolisthesis TECHNIQUE: 4-view lumbar spine. COMPARISON: none FINDINGS: Degenerative spondylolisthesis of L4 on L5 is present with 5 millimetersof motion with flexion/extension. Disc space narrowing L4-5. Facetdegeneration L4 through S1. No vertebral body compression fracture. IMPRESSION: Degenerative anterolisthesis L4 on L5 with up to 5 millimeters of motionwith flexion/extension. Dictated by Kory Arambula MD @ 01/30/2024 3:40:58 PM (Electronically Signed) Rudy Henderson MD GENERAL IMAGING * HPV HIGH RISK (02/19/2023 12:20 PM CDT) TYPE 16 Negative Negative 02/23/2023 7:05 AM CDT [facility] TYPE 18 Negative Negative 02/23/2023 7:05 AM CDT [facility] OTHER HIGH RISK TYPES Negative Negative 02/23/2023 7:05 AM CDT [facility] Other (Cervical) 02/19/2023 12:20 PM CDT 02/20/2023 4:28 PM CDT Narrative [facility] - 02/23/2023 7:05 AM CDT HPV types 16, 18, 31, 33, 35, 39, 45, 51, 52, 56, 58, 59, 66 and 68 DNA were undetectable or below the pre-set threshold. Methodology: Narinder Mirian 4800 HPV Test Alie Hampton PA-C MICROBIOLOGY [facility] [address] [place] [address], * LIPID POCT [facility] ONLY (09/17/2016 10:37 AM CDT) LDL CHOLESTEROL 44 mg/dL [facility] Blood BLOOD SPECIMEN / Unknown 09/17/2016 10:37 AM CDT Marlin Sharpe NP CHEMISTRY [facility] [address] [place] [address] from Last 3 Months or Most Recently [...] 3:28 AM 11/14/2010 5:18 PM Care Teams Sheet Cutter Relationship Specialty Start Date End Date Kory Vang MD [address] [place] [address] PCP - General Internal Medicine 05/10/23 Colby Chakraborty PA [address] [place] [address] Cardiology - EP Cardiovascular Disease 11/07/19 Vikas Barajas MD [address] [place] [address] Cardiology - EP Cardiovascular Disease 11/02/16
--- NOTE | 2024-03-12 10:15 | CRLHL7_ITS ---
For Patients: As a result of the Century Cures Act, medical imaging exams and procedure reports are released immediately into your electronic medical record. You may view this report before your referring provider. If you have questions, please contact your health care provider. INDICATION: Low back pain. Lumbar stenosis. TECHNIQUE: Noncontrast MRI of the lumbar spine is performed in the usual fashion. COMPARISON: From August 19, 2023. FINDINGS: Stable grade 1 degenerative anterolisthesis of L4 on 5. Remainder of the lumbar spine demonstrates normal overall stature, alignment and intrinsic marrow signal. Conus is within normal limits. Stable 3 cm cystic lesion of the right kidney likely representing a simple renal cyst. L1-2, L2-3: Unremarkable. L3-4: Mild bilateral facet arthropathy with minor broad-based posterior disc bulge results in mild bilateral foraminal narrowing with no central canal narrowing. L4-5: Severe bilateral facet arthropathy with interval development of a 3 mm synovial cyst emanating from the left facet resulting in moderate to severe central canal and severe bilateral lateral recess narrowing with compression of the traversing L5 nerve roots. Moderate to severe left and moderate right foraminal narrowing. L5-S1: Mild circumferential disk bulge and bilateral facet arthropathy results in minimal right and mild to moderate left foraminal narrowing. No central canal narrowing. IMPRESSION: 1. Worsening degenerative changes at L4-5 where there has been interval development of a synovial cyst emanating from the left facet compounding the degree of central canal and left lateral recess narrowing. There is moderate to severe central canal narrowing with severe bilateral lateral recess narrowing, moderate right and moderate to severe left foraminal narrowing. 2. Milder degenerative changes within the remainder of the lumbar spine as outlined above. Dictated by Mendoza Nix MD @ 03/13/2024 2:12:12 PM (Electronically Signed)
--- OUTSIDE RECORDS SUMMARY | 2024-03-12 10:15 | XMS_ITS | Continuity of Care Document ---
Author Organization [facility] Address [address] [place] [address] Phone Care Team Providers Care Branch Library Clerk Name Role Phone Manjula Perez MD [...] Protein Dna Antibody, Single Strand Dna Antibody, [place] Nuclear Antigen Antibodies Antinuclear Antibodies Advance Directives Directive Yes / No Effective Date File Name No Information Encounters Encounter Description Practice Location Reason(s) For Visit Diagnoses Date Provider Providers Copied on Encounter [facility], [address], [place], [address], [place] tel:[phone] [facility] , No Information Chris Fair. [facility] [address], [place], [address], [place]. tel:[phone] Office/Outpa tient Visit, New [facility], [address], [place], [address], [place] tel:[phone] [facility] , Abnormal Lab Study (chief complaint) Musculoske letal pain (chief complaint) Raised antibody titerMyalgia Chris Fair. [facility] [address], [place], [address], [place]. tel:[phone] Referring Provider: Manjula Amador, [facility] [address], [place], [address]. tel:[phone] Family History Family Member Type Diagnosis Age At Onset Mother Problem Arthritis Mother Problem Thyroid disorder Maternal grandmother Problem Arthritis Immunizations Vaccine Date Status Comments COVID-19 Pfizer administered Source: Othe r Provider COVID-19 Pfizer administered Source: Othe r Provider Payers Payer name Insurance type Covered constitution party ID Meaghan flores(s) [facility] [id number] Social History Type Description Quantity Date Captured [...]
--- OUTSIDE RECORDS SUMMARY | 2024-03-12 10:15 | XMS_ITS | Encounter Summary ---
Author Organization [facility] Address [address] [place] [address] Care Team Providers Care Glass Cleaner Name Role Phone Kwan De La Cruz MD Primary Care Provider [phone] Claudette Retana MD Unavailable Kwan De La Cruz MD Unavailable [phone] Mechelle Mtz CONSULTATIVE SALES ASSOCIATE DIE PRESSER Unavailable + Kwan De La Cruz MD Unavailable [phone] Mechelle Mtz CONSULTATIVE SALES ASSOCIATE DIE PRESSER Unavailable + Mechelle Mtz APRN DIE PRESSER Unavailable + Claudette Retana MD Unavailable Kory Magallon MD Primary Care Provider [phone] Encounter Details Date Type Department Care Team (Late st Contact Info) Description 05/01/2021 [facility] [address] [address] Carmen Zuniga Social History Tobacco Use Types Packs/Day Years Used Date Smoking Tobacco: Never Smokeless Tobacco: Never Alcohol Use Standard Drinks/Week Comments Yes 0 (1 standard drink = 0.6 oz pur e alcohol) occassional PHQ-2 Answer Date Recorded PHQ-2 Score 0 04/28/2021 Comments No Sex and Gender Information Value Date Recorded Sex Assigned at Female 04/21/2021 9:03 AM GYNECOLOGY TEACHER Legal Sex Female 4:57 AM GYNECOLOGY TEACHER Gender Identity Female 04/21/2021 9:03 AM GYNECOLOGY TEACHER Sexual Orientation Not on file COVID-19 Exposure Response Date Recorded In the last month, have you been in contact with someone who was confirmed or suspected to have Coronavirus / COVID-19? No / Unsure 04/28/2021 1:37 PM GYNECOLOGY TEACHER documented as of this encounter Plan of Treatment Not on file documented as of this encounter Visit Diagnoses Not on filedocumented in this encounter Care Teams Glass Cleaner Relationship Specialty Start Date End Date Kwan De La Cruz MD PCP - General Family Practice 02/17/18 06/19/23 Kory Magallon MD [facility] [address], [place] [address] PCP - General Family Medicine 11/14/23 Claudette Retana MD [address] [place] [phone] Assigned Surgical Provider 03/11/20 10/26/22 Kwan De La Cruz MD [address] [place] [address] Assigned PCP 01/29/21 05/27/21 Mechelle Mtz APRN DIE PRESSER [facility] [place] [address] Assigned PCP 05/28/21 07/29/21 Kwan De La Cruz MD [address] [place] [address] [phone] Assigned PCP 07/30/21 03/09/22 Mechelle Mtz APRN DIE PRESSER [facility] [address] [place] [phone] Assigned PCP 03/10/22 05/04/22 Mechelle Mtz APRN DIE PRESSER [facility] [address] [place] [phone] Assigned PCP 07/14/22 01/25/23 Claudette Retana MD [address] [place] [address] Assigned Surgical Provider 11/17/22 documented as of this encounter
--- OUTSIDE RECORDS SUMMARY | 2024-03-12 10:15 | XMS_ITS | Encounter Summary ---
Author Organization [place] Address [address] [place] [address] Care Team Providers Care Sheet Metal Welder Name Role Phone Oppel, Murali Kothari PA-C Primary Care Provider Kwan De La Cruz MD Primary Care Provider [phone] Kwan De La Cruz MD Unavailable [phone] Kwan De La Cruz MD Unavailable [phone] Brandie Jones DEVELOPMENT AND PLANNING ENGINEER LENS CUTTER Unavailable Unavailable Kwan De La Cruz MD Unavailable [phone] SmithMechelle schmidt APRN LENS CUTTER Unavailable + Claudette Retana MD Unavailable Miguelito Membreno MD Unavailable [phone] Dayna Guzman DEVELOPMENT AND PLANNING ENGINEER CNM Unavailable Unava ilable Adrian Montesinos DPM Unavailable [phone] Kwan De La Cruz MD Unavailable [phone] Mechelle Mtz APRN LENS CUTTER Unavailable + Kwan De La Cruz MD Unavailable [phone] Mechelle Mtz APRN LENS CUTTER Unavailable + SmithMechelle schmidt APRN LENS CUTTER Unavailable + Claudette Retana MD Unavailable Kory Magallon MD Primary Care Provider Reason for Visit * Reason Onset Date Comments Outreach 01/15/2018 vip mammo att 1 Encounter Details Date Type Department Care Team (Late st Contact Info) Description 01/15/2018 Telephone [facility] [address] [place] [address] OppelMurali PA-C [address] [place] [address] Outreach (vip mammo att 1 ) Social History Tobacco Use Types Packs/Day Years Used Date Smoking Tobacco: Never Smokeless Tobacco: Never Alcohol Use Standard Drinks/Week Comments Yes 0 (1 standard drink = 0.6 oz pur e alcohol) occassional Comments No Sex and Gender Information Value Date Recorded Sex Assigned at Female 04/21/2021 9:03 AM HOSPITAL FOOD SERVICE WORKER Legal Sex Female 4:57 AM HOSPITAL FOOD SERVICE WORKER Gender Identity Female 04/21/2021 9:03 AM HOSPITAL FOOD SERVICE WORKER Sexual Orientation Not on file documented as of this encounter Miscellaneous Notes * Telephone Encounter - Priscilla Fatima - 01/15/2018 12:08 PM CDT 01/15/2018 Attempt 1 Contacted patient in regards to scheduling VIP mammogram Message on voicemail Patient is also due for - Comments: Outreach Clinical Rehab Liaison Priscilla Fatima documented in this encounter Plan of Treatment Not on file documented as of this encounter Visit Diagnoses Not on filedocumented in this encounter Additional Health Concerns Infection Onset Date Last Indicated Resolved Time Rule Out COVID-19 11/26/2019 11/26/2019 11/27/2019 7:57 PM CDT documented as of this encounter Care Teams Sheet Metal Welder Relationship Specialty Start Date End Date Murali Hickey PA-C [address] [place], [place] [id number] PCP - General Family Practice 12/17/17 02/16/18 [place] [address] [place] [address] PCP - General Family Practice 02/17/18 06/19/23 Kwan De La Cruz MD [address] [place] [address] PCP - Assigned PCP 03/04/16 07/22/18 Kory Magallon MD [facility] [address], [place] [address] PCP - General Family Medicine 11/14/23 Kwan De La Cruz MD [address] [place] [address] Assigned PCP 03/04/16 10/25/18 Brandie Jones APRN LENS CUTTER Assigned PCP 10/26/18 03/14/19 Kwan De La Cruz MD [address] [place] [address] Assigned PCP 03/15/19 03/05/20 Mechelle Mtz APRN LENS CUTTER [facility] [address], [place] [phone] Assigned PCP 03/06/20 01/28/21 Claudette Retana MD [address] [place] [address] Assigned Surgical Provider 03/11/2010/26/22 [place] [address] [facility] [place] [address] Assigned Musculoskeletal Provider 03/11/20 08/27/20 Dayna Guzman, DEVELOPMENT AND PLANNING ENGINEER CNM Assigned OBGYN Provider 03/11/20 10/22/20 Adrian Montesinos, DPCollin [address] [facility] [place] [address] Assigned Musculoskeletal Provider 08/28/20 10/22/20 Kwan De La Cruz MD [address] [place] [address] Assigned PCP 01/29/21 05/27/21 Mechelle Mtz APRN LENS CUTTER [facility] [address] [address] [place] [phone] Assigned PCP 05/28/21 07/29/21 Kwan De La Cruz MD [facility] [place] [address] Assigned PCP 07/30/21 03/09/22 Mechelle Mtz APRN LENS CUTTER [facility] [place] [place] [address] Assigned PCP 03/10/22 05/04/22 Mechelle Mtz APRN LENS CUTTER [facility] [phone] Assigned PCP 07/14/22 01/25/23 Claudette Retana MD [address] [place] [address] [address] [place] [address] Assigned Surgical Provider 11/17/22 documented as of this encounter
--- OUTSIDE RECORDS SUMMARY | 2024-03-12 10:15 | XMS_ITS | Encounter Summary ---
Author Organization [address] Address [address] [place] [address] Care Team Providers Care Political Geographer Name Role Phone Kwan De La Cruz MD Primary Care Provider [phone] Claudette Retana MD Unavailable Kwan De La Cruz MD Unavailable [phone] Mechelle Mtz LAMINATION SPINNER DEPORTATION OFFICER Unavailable + Kwan De La Cruz MD Unavailable [phone] Mechelle Mtz LAMINATION SPINNER DEPORTATION OFFICER Unavailable + Mechelle Mtz APRN DEPORTATION OFFICER Unavailable + Claudette Retana MD Unavailable Kroy Magallon MD Primary Care Provider [phone] Encounter Details Date Type Department Care Team (Late st Contact Info) Description 05/01/2021 [facility] [address] [address] Ginette Padilla, RN Social History Tobacco Use Types Packs/Day Years Used Date Smoking Tobacco: Never Smokeless Tobacco: Never Alcohol Use Standard Drinks/Week Comments Yes 0 (1 standard drink = 0.6 oz pur e alcohol) occassional PHQ-2 Answer Date Recorded PHQ-2 Score 0 04/28/2021 Comments No Sex and Gender Information Value Date Recorded Sex Assigned at Female 04/21/2021 9:03 AM WORD PROCESSOR Legal Sex Female 4:57 AM WORD PROCESSOR Gender Identity Female 04/21/2021 9:03 AM WORD PROCESSOR Sexual Orientation Not on file COVID-19 Exposure Response Date Recorded In the last month, have you been in contact with someone who was confirmed or suspected to have Coronavirus / COVID-19? No / Unsure 04/28/2021 1:37 PM WORD PROCESSOR documented as of this encounter Plan of Treatment Not on file documented as of this encounter Visit Diagnoses Not on filedocumented in this encounter Care Teams Political Geographer Relationship Specialty Start Date End Date Kwan De La Cruz MD PCP - General Family Practice 02/17/18 06/19/23 Kory Magallon MD [facility] [address], [place] [address] PCP - General Family Medicine 11/14/23 Claudette Retana MD [address] [place] [id number] Assigned Surgical Provider 03/11/20 10/26/22 Kwan De La Cruz MD [address] [place] [address] Assigned PCP 01/29/21 05/27/21 Mechelle Mtz APRN DEPORTATION OFFICER [facility] [place] [address] Assigned PCP 05/28/21 07/29/21 Kwan De La Cruz MD [address] [place] [id number] Assigned PCP 07/30/21 03/09/22 Mechelle Mtz APRN DEPORTATION OFFICER [facility] [address] [place] [address] Assigned PCP 03/10/22 05/04/22 Mechelle Mtz APRN DEPORTATION OFFICER [facility] [address] [place] [phone] Assigned PCP 07/14/22 01/25/23 Claudette Retana MD [address] [place] [address] Assigned Surgical Provider 11/17/22 documented as of this encounter
--- OUTSIDE RECORDS SUMMARY | 2024-03-12 10:15 | XMS_ITS | Clinical Summary ---
Author Organization [place] Address [address] [place] [address] Care Team Providers Care Garment Parts Cutter Hand Name Role Phone Claudette Retana MD Unavailable Kory Magallon MD Primary Care Provider [phone] Allergies Active Allergy Reactions Criticality Noted Date Comments No Known Drug Allergy 06/13/2010 Medications aspirin 325 MG tabletIndication s:Cerebrovascula r accident (CVA), unspecified mechanism (H) Take 1 tablet (325 mg) by mouth daily 180 tablet 3 03/15/2016 Active rosuvastatin (CRESTOR) 5 MG tablet Take 1 tablet by mouth daily at 2 pm 08/24/2023 Active Turmeric (QC TUMERIC COMPLEX) 500 MG CAPS Active Active Problems Problem Noted Date Diagnosed [...] 0 09/09/2018 Advanced directives, counseling/discussion 03/15/2016 11/04/2023 Overview (03/15/2016): Discussed Advance Directive planning with patient; information given to patient to review. Kelsie Nasir FRY Encounters Date Type Department Care Team Description 02/07/[address] [address] Claudette Retana MD Call Back (Pt would like to schedule her annual appointment with Dr. Retana. Advised that there are changes in the clinic and I can scheduled with someone else but she requested a call from the clinic.) from Last 3 Months Immunizations Name Administration [...] School Help Needed Not on file 03/06 Comments No Sex and Gender Information Value Date Recorded Sex Assigned at Female 04/21/2021 9:03 AM DIRECTOR OF MATERIALS MANAGEMENT Legal Sex Female 4:57 AM DIRECTOR OF MATERIALS MANAGEMENT Gender Identity Female 04/21/2021 9:03 AM DIRECTOR OF MATERIALS MANAGEMENT Sexual Orientation Not on file Last Filed Vital Signs Vital Sign Reading Time Taken Comments Blood Pressure 116/80 05/21/2020 9:28 AM DIRECTOR OF MATERIALS MANAGEMENT Pulse 51 05/21/2020 9:28 AM DIRECTOR OF MATERIALS MANAGEMENT Temperature 36.1 ??C (97 ??F) 05/21/2020 9:28 AM DIRECTOR OF MATERIALS MANAGEMENT Respiratory Rate 16 05/21/2020 9:28 AM DIRECTOR OF MATERIALS MANAGEMENT Oxygen Saturation 96% 05/21/2020 9:28 AM DIRECTOR OF MATERIALS MANAGEMENT Inhaled Oxygen Concentration - - Weight 112.3 kg (247 lb 9.6 oz) 05/21/2020 9:28 AM DIRECTOR OF MATERIALS MANAGEMENT Height 171.5 cm (5' 7.5) 03/24/2019 10 :42 AM DIRECTOR OF MATERIALS MANAGEMENT Body Mass Index 38.21 03/24/2019 10:42 AM DIRECTOR OF MATERIALS MANAGEMENT Plan of Treatment Health Maintenance Due Date Last Done Comments ANNUAL REVIEW OF HM ORDERS 1960 CT COLONOGRAPHY 1960 FIT 1960 FLEX SIG 1960 sDNA (Cologuard) 1960 HIV SCREENING 11/02/1975 LIPID 02/25/2020 02/24/2019, 08/2017, 06/11/2016 MAMMO SCREENING 07/29/2020 07/29/2018, 05/2018, 07/18/2018, Additional history exists RSV VACCINE (1 - Risk 60-74 years 1-dose series) 2020 ADVANCE CARE PLANNING 03/15/2021 03/15/2016 GLUCOSE 02/24/2022 02/24/2019, 08/2017, 06/11/2016 MEDICARE ANNUAL WELLNESS VISIT 08/15/2022 08/15/2021, 08/08/2020, 06/22/2019, Additional history exists COLONOSCOPY 01/07/2023 01/07/2018, 12/19, 2010 COLORECTAL CANCER SCREENING 01/07/2023 COVID-19 Vaccine ( season) 2024 04/17/2023, 02/13/2022, 11/07/2021, Additional history exists INFLUENZA VACCINE (#1) 2024 , 03/07/2022, 03/15/2021, Additional history exists HPV TEST 02/20/2028 02/19/2023, 11/2017, 04/01/2013 PAP 02/20/2028 02/19/2023, 11/2017, 04/25/2018, Additional history exists DTAP/TDAP/TD IMMUNIZATION (3 - Td or Tdap) 06/22/2029 06/22/2019, 06/30/2010 HEPATITIS C SCREENING Completed 06/11/2016 ZOSTER IMMUNIZATION Completed 06/05/2018, 04/03/2018, 05/11/2016 PHQ-2 (once per calendar year) Completed 11/14/2023, [...] - HIM SCAN Routine 07/18/2018 ABSTRACT PAP (HIM EXTERNAL RESULT) Routine 04/25/2018 ABSTRACT HPV (HIM EXTERNAL RESULT) Routine 04/25/2018 COLONOSCOPY - HIM SCAN Routine 01/07/2018 HEPATITIS C ANTIBODY Routine 06/11/2016 10:43 AM DIRECTOR OF MATERIALS MANAGEMENT Routine general medical examination at a health care facility from Last 3 Months or Most Recently Relevant to Health Maintenance Results * Lipid panel reflex to direct LDL Fasting (02/24/2019 9:25 AM CDT) Cholesterol 148 <200 mg/dL 02/24/2019 1:20 PM CDT [facility] [place] [place] Triglycerides 64 <150 mg/dL 02/24/2019 1:21 PM CDT [facility] [place] [place] Comment:Fasting specimen HDL Cholesterol 70 >49 mg/dL 9 1:23 PM CDT [facility] [place] [place] LDL Cholesterol Calculated 65 <100 mg/dL 02/24/2019 1:23 PM CDT [facility] [place] [place] Comment:Desirable: <100 mg/d l Non HDL Cholesterol 78 <130 mg/dL 02/24/2019 1:23 PM CDT [facility] [place] Blood specimen (specimen) 02/24/2019 9:25 AM CDT 02/24/2019 9:26 AM CDT Kwan De La Cruz MD LAB - BLOOD ORDERABLES Final R esult [facility] [place] [address] [place] [address] * Basic metabolic panel (Ca, Cl, CO2, Creat, Gluc, K, Na, BUN) (02/24/2019 9:25 AM CDT) Sodium 141 133 - 144 mmol/L 02/24/2019 1:10 PM CDT [facility] [place] Potassium 4.1 3.4 - 5.3 mmol/L 02/24/2019 1:10 PM CDT [facility] [place] Chloride 107 94 - 109 mmol/L 02/24/2019 1:10 PM CDT [facility] [place] [place] Carbon Dioxide 30 20 - 32 mmol/L 02/24/2019 1:23 PM CDT [facility] [place] [place] Anion Gap 4 3 - 14 mmol/L 02/24/2019 1:23 PM CDT [facility] [place] Glucose 95 70 - 99 mg/dL 02/24/2019 1:23 PM CDT [facility] [place] Comment:Fasting specimen Urea Nitrogen 19 7 - 30 mg/dL 02/24/2019 1:23 PM CDT [facility] [place] [place] Creatinine 0.79 0.52 - 1.04 mg/dL 02/24/2019 1:23 PM CDT [facility] [place] [place] GFR Estimate 82 >60 mL/min/{1. 73_m2} 02/24/2019 1:23 PM CDT [facility] [place] Comment: Non GFR Calc Starting 05/06/2018, serum creatinine based estimated GFR (eGFR) will be calculated using the Chronic Kidney Disease Epidemiology Collaboration (CKD-EPI) equation. GFR Estimate If Black >90 >60 mL/min/{1. 73_m2} 02/24/2019 1:23 PM CDT [facility] [place] [place] Comment: GFR Calc Starting 05/06/2018, serum creatinine based estimated GFR (eGFR) will be calculated using the Chronic Kidney Disease Epidemiology Collaboration (CKD-EPI) equation. Calcium 9.3 8.5 - 10.1 mg/dL 02/24/2019 1:23 PM CDT [facility] [place] [place] Blood specimen (specimen) 02/24/2019 9:25 AM CDT 02/24/2019 9:26 AM CDT us Kwan De La Cruz MD LAB - BLOOD ORDERABLES Final R esult [facility] [place] [address] [place] [address] * Mammogram - HIM Scan (07/18/2018) Anatomical Region Laterality Modality Other Narrative 07/18/2018 Elias Ramos Sent to Abstract Quality Initiatives Please abstract the following data from this visit with this patient into the appropriate field in [facility]: Mammogram done on this date: 07/18/2018 (approximately), by this group: [facility], results were Neg. ?? us Patient Reported IMG MAMMOGRAPHY ORDERABLES Anitha l Result * ABSTRACT HPV-NO CHARGE (04/25/2018) HPV Abstract See Scanned Document [facility] 04/25/2018 Narrative [facility] - 04/25/2018 Kelsie Best LPN Please abstract the following data from this visit with this patient into the appropriate field in Epic: Other Tests found in the patient's chart through Chart Review/Care Everywhere: Pap smear done by this group [facility] ([facility]) on this date: 04-25-2018 HPV done at [facility] on 04-25-2018 SEE CARE EVERYWHERE [facility] us Provider Outside LAB - HIM EXTERNAL RESULT Final Result Performing Organization Address City/[facility] Co de Phone Number [facility] [address] [place] [address], [facility] [phone] * ABSTRACT PAP-NO CHARGE (04/25/2018) PAP-ABSTRACT See Scanned Document [facility] 04/25/2018 Narrative [facility] - 04/25/2018 Kelsie Best LPN Please abstract the following data from this visit with this patient into the appropriate field in Epic: Other Tests found in the patient's chart through Chart Review/Care Everywhere: Pap smear done by this group [facility] ([facility]) on this date: 04-25-2018 HPV done at [facility] on 04-25-2018 SEE CARE EVERYWHERE [facility] us Provider Outside LAB - HIM EXTERNAL RESULT Final Result Performing Organization Address [facility] Co de Phone Number [facility] [address] [place] [address], [facility] [phone] * Colonoscopy - HIM Scan (01/07/2018) Narrative [facility] - 01/07/2018 Kelsie Best LPN Please abstract the following data from this visit with this patient into the appropriate field in Epic: Other Tests found in the patient's chart through Chart Review/Care Everywhere: Colonoscopy done on 01-07-2018 at [facility]-repeat in 5 years SEE CARE EVERYWHERE [facility] us Provider Outside PROCEDURES Final Result * Hepatitis C antibody (06/11/2016 10:43 AM DIRECTOR OF MATERIALS MANAGEMENT) Hepatitis C Antibody Nonreactive Assay performance characteristics have not been established for newborns, infants, and children [facility] Blood specimen (specimen) 06/11/2016 10:43 AM DIRECTOR OF MATERIALS MANAGEMENT 06/11/2016 10:44 AM DIRECTOR OF MATERIALS MANAGEMENT Kwan De La Cruz MD LAB - BLOOD ORDERABLES Final R esult [facility] [address] [place] [address] from Last 3 Months or Most Recently Relevant to Health Maintenance Insurance [employer] MEDICARE ADVANTAGE [employer] MEDICARE ADVANTAGE Care Teams Garment Parts Cutter Hand Relationship Specialty Start Date End Date Kory Magallon MD [facility] [address], [place] [address] PCP - General Family Medicine 11/14/23 Claudette Retana MD [address] [place] [address] Assigned Surgical Provider 11/17/22
--- OUTSIDE RECORDS SUMMARY | 2024-03-12 10:15 | XMS_ITS | Encounter Summary ---
Author Organization [place] Address [address] [place] [address] Care Team Providers Care Stave Bolt Equalizer Name Role Phone Kory Noland MD Primary Care Provider + Kwan De La Cruz MD Primary Care Provider [phone] Murali Hickey PA-C Primary Care Provider Kwan D eLa Cruz MD Primary Care Provider [phone] Kwan De La Cruz MD Unavailable [phone] Kwan De La Cruz MD Unavailable [phone] Brandie Jones MEDICAL VOUCHER CLERK FUR CLIPPER Unavailable Unavailable Kwan De La Cruz MD Unavailable [phone] Mechelle Mtz APRN FUR CLIPPER Unavailable + Claudette Retana MD Unavailable Miguelito Membreno MD Unavailable [phone] Dayna Guzman APRN CNM Unavailable Unava Adrian Navarrete DPCollin Unavailable [phone] Kwan De La Cruz MD Unavailable [phone] Mechelle Mtz APRN FUR CLIPPER Unavailable + Kwan De La Cruz MD Unavailable [phone] Daron Mtzsslara Rawls APRN FUR CLIPPER Unavailable + Mechelle Mtz APRN FUR CLIPPER Unavailable + Claudette Retana MD Unavailable Kory Magallon MD Primary Care Provider Reason for Visit * Reason Onset Date Comments Abstract 01/04/2012 Please Abstract Encounter Details Date Type Department Care Team (Late st Contact Info) Description 01/04/[address] [facility] [address] [place] [phone] [place] [address] [place] [address] Abstract (Please Abstract ) Social History Tobacco Use Types Packs/Day Years Used Date Smoking Tobacco: Never Alcohol Use Standard Drinks/Week Comments Yes 0 (1 standard drink = 0.6 oz pur e alcohol) occassional Comments No Sex and Gender Information Value Date Recorded Sex Assigned at Female 04/21/2021 9:03 AM ORTHODONTIST SMALL BUSINESS OWNER Legal Sex Female 4:57 AM ORTHODONTIST SMALL BUSINESS OWNER Gender Identity Female 04/21/2021 9:03 AM ORTHODONTIST SMALL BUSINESS OWNER Sexual Orientation Not on file documented as of this encounter Miscellaneous Notes * Telephone Encounter - [place] - 01/04/2012 4:05 PM CDT Please abstract the following data from this visit with this patient into the appropriate field in [facility]: Mammogram done on this date: is due will schedule future appointment, by this group: [facility] location , results were normal. Pap smear done on this date: is due will schedule future appointment , by this group: [facility] location , results were normal. documented in this encounter Plan of Treatment Not on file documented as of this encounter Visit Diagnoses Not on filedocumented in this encounter Additional Health Concerns Infection Onset Date Last Indicated Resolved Time Rule Out COVID-19 11/26/2019 11/26/2019 11/27/2019 7:57 PM CDT documented as of this encounter Care Teams Stave Bolt Equalizer Relationship Specialty [place] [address] [place] [address] PCP - General 07/25/08 02/28/16 [place] [address] [place] [address] PCP - General Family Practice 02/29/16 12/16/17 Murali Hickey PA-C [address] [place] [address] PCP - General Family Practice 12/17/17 02/16/18 [place] [address] [place] [address] PCP - General Family Practice 02/17/18 06/19/23 Kwan De La Cruz MD [address] [place] [address] PCP - Assigned PCP 03/04/16 07/22/18 Kory Magallon MD [facility] [address] [place] [address] PCP - General Family Medicine 11/14/23 Kwan De La Cruz MD [address] [place] [address] Assigned PCP 03/04/16 10/25/18 Brandie Jones APRN CNP Assigned PCP 10/26/18 03/14/19 Kwan De La Cruz MD [address] [place] [address] Assigned PCP 03/15/19 03/05/20 Mechelle Mtz APRN FUR CLIPPER [facility] [address] [place] [phone] Assigned PCP 03/06/20 01/28/21 Claudette Retana MD [address] [place] [address] Assigned Surgical Provider 03/11/2010/26/22 [place] [address] [facility] [place] [address] Assigned Musculoskeletal Provider 03/11/20 08/27/20 Dayna Guzman APRN CNM Assigned OBGYN Provider 03/11/20 10/22/20 Adrian Montesinos, DPM [address] [place] [address] Assigned Musculoskeletal Provider 08/28/20 10/22/20 Kwan De La Cruz MD [address] [place] [address] Assigned PCP 01/29/21 05/27/21 Mechelle Mtz APRN FUR CLIPPER [facility] [place] [phone] Assigned PCP 05/28/21 07/29/21 Kwan De La Cruz MD [address] [place] [address] Assigned PCP 07/30/21 03/09/22 Mechelle Mtz APRN FUR CLIPPER [facility] [address], [place] [phone] Assigned PCP 03/10/22 05/04/22 Mechelle Mtz APRN FUR CLIPPER [facility] [address], [place] [phone] Assigned PCP 07/14/22 01/25/23 Claudette Retana MD [address] [place] [address] Assigned Surgical Provider 11/17/22 documented as of this encounter
--- OUTSIDE RECORDS SUMMARY | 2024-03-12 10:15 | XMS_ITS | Encounter Summary ---
Author Organization [facility] Address [address] [place] [address] Care Team Providers Care Engineering Leader Name Role Phone Kwan De La Cruz MD Primary Care Provider [phone] Claudette Retana MD Unavailable Kwan De La Cruz MD Unavailable [phone] Mechelle Mtz MAINS AND SERVICE SUPERVISOR GUIDE ALPINE Unavailable + Kwan De La Cruz MD Unavailable [phone] Mechelle Mtz MAINS AND SERVICE SUPERVISOR GUIDE ALPINE Unavailable + Mechelle Mtz APRN GUIDE [place]PINE Unavailable + Claudette Retana MD Unavailable Kory Magallon MD Primary Care Provider [phone] Encounter Details Date Type Department Care Team (Late st Contact Info) Description 05/01/2021 [facility] Medical Advice [address] [address] Nasrin Smith, RN Social History Tobacco Use Types Packs/Day Years Used Date Smoking Tobacco: Never Smokeless Tobacco: Never Alcohol Use Standard Drinks/Week Comments Yes 0 (1 standard drink = 0.6 oz pur e alcohol) occassional PHQ-2 Answer Date Recorded PHQ-2 Score 0 04/28/2021 Comments No Sex and Gender Information Value Date Recorded Sex Assigned at Female 04/21/2021 9:03 AM MEDICAL RESEARCH TECH Legal Sex Female 4:57 AM MEDICAL RESEARCH TECH Gender Identity Female 04/21/2021 9:03 AM MEDICAL RESEARCH TECH Sexual Orientation Not on file COVID-19 Exposure Response Date Recorded In the last month, have you been in contact with someone who was confirmed or suspected to have Coronavirus / COVID-19? No / Unsure 04/28/2021 1:37 PM MEDICAL RESEARCH TECH documented as of this encounter Plan of Treatment Not on file documented as of this encounter Visit Diagnoses Not on filedocumented in this encounter Care Teams Engineering Leader Relationship Specialty Start Date End Date Kwan De La Cruz MD PCP - General Family Practice 02/17/18 06/19/23 Kory Magallon MD [facility] [address], [place] [address] PCP - General Family Medicine 11/14/23 Claudette Retana MD [address] [place] [address] 98 [place], [place] [address] Assigned Surgical Provider 03/11/20 10/26/22 Kwan De La Cruz MD [address] [place] [address] Assigned PCP 01/29/21 05/27/21 Mechelle Mtz APRN GUIDE ALPINE [facility] [place] [address] [phone] Assigned PCP 05/28/21 07/29/21 Kwan De La Cruz MD [address] [place] [id number] Assigned PCP 07/30/21 03/09/22 Mechelle Mtz APRN GUIDE [place]PINE [facility] [place] [address] [place] [phone] Assigned PCP 03/10/22 05/04/22 Mechelle Mtz APRN GUIDE [place] [facility] [place] [address] [place] [phone] Assigned PCP 07/14/22 01/25/23 Claudette Retana MD [address] [place] [address] Assigned Surgical Provider 11/17/22 documented as of this encounter
--- OUTSIDE RECORDS SUMMARY | 2024-03-12 10:15 | XMS_ITS | Encounter Summary ---
Author Organization [facility] Address [address] [place] [address]. [place] [address] Care Team Providers Care Brass Molder Helper Name Role Phone Claudette Retana MD Unavailable Kory Magallon MD Primary Care Provider [phone] Reason for Visit * Reason Onset Date Comments Call Back 02/07/2024 Pt would like to schedule her annual appointment with Dr. Retana. Advised that there are changes in the clinic and I can scheduled with someone else but she requested a call from the clinic. Encounter Details Date Type Department Care Team ([facility] Contact Info) Description 02/07/[address] [place] [address] Claudette Retana MD [address] [place] [address] 98 [place] [address] Call Back (Pt would like to schedule her annual appointment with Dr. Retana. Advised that there are changes in the clinic and I can scheduled with someone else but she requested a call from the clinic.) Social History Tobacco Use Types Packs/Day Years [...] Sex Assigned at Female 04/21/2021 9:03 AM CASTING HOUSE LABORER Legal Sex Female 4:57 AM CASTING HOUSE LABORER Gender Identity Female 04/21/2021 9:03 AM CASTING HOUSE LABORER Sexual Orientation Not on file documented as of this encounter Miscellaneous Notes * Telephone Encounter - Eliza Braun RN - 02/07/2024 1:26 PM CDT Pt needs appointment in October for skin check. Compensation Intern informed her again that Dr Retana's template is closed and she has no openings prior to her template change. Offered to schedule with another provider and she declined. Offered to send message to other clinics close to her home and she declined. She stated she will call and find another life insurance sales agent herself. Eliza Braun RN on 02/07/2024 at 1:27 PM * Telephone Encounter - Max Saba - 02/07/2024 1:16 PM CDT Health Call Center Phone Message May a detailed message be left on voicemail: yes Reason for Call: Other: Pt would like to schedule her annual appointment with Dr. Retana. Advised that there are changes in the clinic and I can scheduled with someone else but she requested a call from the clinic. Action Taken: Other: MG Derm Travel Screening: Not Applicable documented in this encounter Plan of Treatment Not on file documented as of this encounter Visit Diagnoses Not on filedocumented in this encounter Care Teams Brass Molder Helper Relationship Specialty Start Date End Date Kory Magallon MD [facility] [address] [place] [address] PCP - General Family Medicine 11/14/23 Claudette Retana MD [address] [place] [address] Assigned Surgical Provider 11/17/22 documented as of this encounter
--- OUTSIDE RECORDS SUMMARY | 2024-03-12 10:15 | XMS_ITS | Encounter Summary ---
Author Organization [facility] Address [address] [place] [address] Care Team Providers Care Ice Guard Inspector Name Role Phone Kwan De La Cruz MD Primary Care Provider Kwan De La Cruz MD Unavailable [phone] Mechelle Mtz APRN LIBRARY SALES CONSULTANT Unavailable + Claudette Retana MD Unavailable Miguelito Membreno MD Unavailable [phone] Dayna Guzman TREE TRIMMER HELPER CNM Unavailable Unava ilable Adrian Montesinos DPM Unavailable [phone] Kwan De La Cruz MD Unavailable [phone] Mechelle Mtz TREE TRIMMER HELPER LIBRARY SALES CONSULTANT Unavailable + Kwan De La Cruz MD Unavailable [phone] Mechelle Mtz APRN LIBRARY SALES CONSULTANT Unavailable + Mechelle Mtz TREE TRIMMER HELPER LIBRARY SALES CONSULTANT Unavailable + Claudette Retana MD Unavailable Kory Magallon MD Primary Care Provider Encounter Details Date Type Department Care Team (Late st Contact Info) Description 01/26/2020 [facility] [address] [phone] Ginette Padilla RN Social History Tobacco Use Types Packs/Day Years Used Date Smoking Tobacco: Never Smokeless Tobacco: Never Alcohol Use Standard Drinks/Week Comments Yes 0 (1 standard drink = 0.6 oz pur e alcohol) occassional PHQ-2 Answer Date Recorded PHQ-2 Score 0 09/18/2019 Comments No Sex and Gender Information Value Date Recorded Sex Assigned at Female 04/21/2021 9:03 AM AERONAUTICAL RESEARCH ENGINEER Legal Sex Female 4:57 AM AERONAUTICAL RESEARCH ENGINEER Gender Identity Female 04/21/2021 9:03 AM AERONAUTICAL RESEARCH ENGINEER Sexual Orientation Not on file COVID-19 Exposure [...] on filedocumented in this encounter Care Teams Ice Guard Inspector Relationship Specialty Start Date End Date Kwan De La Cruz MD PCP - General Family Practice 02/17/18 06/19/23 Kory Magallon MD [facility] [address] [facility] [address] PCP - General Family Medicine 11/14/23 Kwan De La Cruz MD [facility] [place] [address] Assigned PCP 03/15/19 03/05/20 Mechelle Mtz APRN LIBRARY SALES CONSULTANT [facility] [place] [address], [place] [address] Assigned PCP 03/06/20 01/28/21 Claudette Retana MD [address] [place] [address] Assigned Surgical Provider 03/11/2010/26/22 [place] [address] [place] [address] Assigned Musculoskeletal Provider 03/11/20 08/27/20 Dayna Guzman APRN CNM Assigned OBGYN Provider 03/11/20 10/22/20 Adrian Montesinos DPM [address] [place] [address] Assigned Musculoskeletal Provider 08/28/20 10/22/20 Kwan De La Cruz MD [address] [place] [address] Assigned PCP 01/29/21 05/27/21 Mechelle Mtz APRN LIBRARY SALES CONSULTANT [facility] [place] [address] [place] [phone] Assigned PCP 05/28/21 07/29/21 Kwan De La Cruz MD [address] [place] [address] Assigned PCP 07/30/21 03/09/22 Mechelle Mtz APRN LIBRARY SALES CONSULTANT [facility] [place] [address] [place] [address] Assigned PCP 03/10/22 05/04/22 Mechelle Mtz APRN LIBRARY SALES CONSULTANT [facility] [place] [address], [place] [address] Assigned PCP 07/14/22 01/25/23 Claudette Retana MD [address] [place] [address] Assigned Surgical Provider 11/17/22 documented as of this encounter
--- OUTSIDE RECORDS SUMMARY | 2024-03-12 10:15 | XMS_ITS | Referral Summary ---
Author Organization [facility] Address [address] [place] [address] Care Team Providers Care Button Grader Name Role Phone Claudette Retana MD Unavailable Kory Magallon MD Primary Care Provider [phone] Encounters Date Type Department Care Team Description 02/07/[address] [place] [address] Claudette Retana MD Call Back (Pt would like to schedule her annual appointment with Dr. Retana. Advised that there are changes in the clinic and I can scheduled with someone else but she requested a call from the clinic.) from Last 3 Months Allergies Active Allergy [...] given to patient to review. Kelsie Best [facility] Immunizations Name Administration Dates Next Due Influenza [...] Sex Assigned at Female 04/21/2021 9:03 AM DEALER ACCOUNTS INVESTIGATOR Legal Sex Female 4:57 AM DEALER ACCOUNTS INVESTIGATOR Gender Identity Female 04/21/2021 9:03 AM DEALER ACCOUNTS INVESTIGATOR Sexual Orientation Not on file Last Filed Vital Signs Vital Sign Reading Time Taken Comments Blood Pressure 116/80 05/21/2020 9:28 AM DEALER ACCOUNTS INVESTIGATOR Pulse 51 05/21/2020 9:28 AM DEALER ACCOUNTS INVESTIGATOR Temperature 36.1 ??C (97 ??F) 05/21/2020 9:28 AM DEALER ACCOUNTS INVESTIGATOR Respiratory Rate 16 05/21/2020 9:28 AM DEALER ACCOUNTS INVESTIGATOR Oxygen Saturation 96% 05/21/2020 9:28 AM DEALER ACCOUNTS INVESTIGATOR Inhaled Oxygen Concentration - - Weight 112.3 kg (247 lb 9.6 oz) 05/21/2020 9:28 AM DEALER ACCOUNTS INVESTIGATOR Height 171.5 cm (5' 7.5) 03/24/2019 10 :42 AM DEALER ACCOUNTS INVESTIGATOR Body Mass Index 38.21 03/24/2019 10:42 AM DEALER ACCOUNTS INVESTIGATOR Plan of Treatment Not on file Procedures Procedure Name Priority Date/Time Associated Diagnosis Comments BASIC METABOLIC PANEL Routine 02/24/2019 9:25 AM CDT Routine history and physical examination of adult LIPID REFLEX TO DIRECT LDL PANEL Routine 02/24/2019 9:25 AM CDT Routine history and physical examination of adult MAMMOGRAM - HIM SCAN Routine 07/18/2018 ABSTRACT PAP ([facility] EXTERNAL RESULT) Routine 04/25/2018 ABSTRACT HPV ([facility] EXTERNAL RESULT) Routine 04/25/2018 COLONOSCOPY - HIM SCAN Routine 01/07/2018 HEPATITIS C ANTIBODY Routine 06/11/2016 10:43 AM DEALER ACCOUNTS INVESTIGATOR Routine general medical examination at a health care facility from Last 3 Months or Most Recently Relevant to Health Maintenance Results * Lipid panel reflex to direct LDL Fasting (02/24/2019 9:25 AM CDT) Cholesterol 148 <200 mg/dL 02/24/2019 1:20 PM CDT [facility] Triglycerides 64 <150 mg/dL 02/24/2019 1:21 PM CDT [facility] Comment:Fasting specimen HDL Cholesterol 70 >49 mg/dL 9 1:23 PM CDT [facility] LDL Cholesterol Calculated 65 <100 mg/dL 02/24/2019 1:23 PM CDT [facility] Comment:Desirable: <100 mg/d l Non HDL Cholesterol 78 <130 mg/dL 02/24/2019 1:23 PM CDT [facility] Blood specimen (specimen) 02/24/2019 9:25 AM CDT 02/24/2019 9:26 AM CDT Kwan De La Cruz MD LAB - BLOOD ORDERABLES Final R esult [facility] [address] [place] [address] * Basic metabolic panel (Ca, Cl, CO2, Creat, Gluc, K, Na, BUN) (02/24/2019 9:25 AM CDT) Sodium 141 133 - 144 mmol/L 02/24/2019 1:10 PM CDT [facility] Potassium 4.1 3.4 - 5.3 mmol/L 02/24/2019 1:10 PM CDT [facility] Chloride 107 94 - 109 mmol/L 02/24/2019 1:10 PM CDT [facility] Carbon Dioxide 30 20 - 32 mmol/L 02/24/2019 1:23 PM CDT [facility] Anion Gap 4 3 - 14 mmol/L 02/24/2019 1:23 PM CDT [facility] Glucose 95 70 - 99 mg/dL 02/24/2019 1:23 PM CDT [facility] Comment:Fasting specimen Urea Nitrogen 19 7 - 30 mg/dL 02/24/2019 1:23 PM CDT [facility] Creatinine 0.79 0.52 - 1.04 mg/dL 02/24/2019 1:23 PM CDT [facility] GFR Estimate 82 >60 mL/min/{1. 73_m2} 02/24/2019 1:23 PM CDT [facility] Comment: Non GFR Calc Starting 05/06/2018, serum creatinine based estimated GFR (eGFR) will be calculated using the Chronic Kidney Disease Epidemiology Collaboration (CKD-EPI) equation. GFR Estimate If Black >90 >60 mL/min/{1. 73_m2} 02/24/2019 1:23 PM CDT [facility] Comment: GFR Calc Starting 05/06/2018, serum creatinine based estimated GFR (eGFR) will be calculated using the Chronic Kidney Disease Epidemiology Collaboration (CKD-EPI) equation. Calcium 9.3 8.5 - 10.1 mg/dL 02/24/2019 1:23 PM CDT [facility] Blood specimen (specimen) 02/24/2019 9:25 AM CDT 02/24/2019 9:26 AM CDT us Kwan De La Cruz MD LAB - BLOOD ORDERABLES Final R esult Performing Organization Address City/[facility]/ZIP Co de Phone Number [facility] [address] [place] [address] * Mammogram - HIM Scan (07/18/2018) Anatomical Region Laterality Modality Other Narrative 07/18/2018 Elias Ramos Sent to Abstract Quality Initiatives Please abstract the following data from this visit with this patient into the appropriate field in Epic: Mammogram done on this date: 07/18/2018 (approximately), by this group: [facility], results were Neg. ?? us Patient Reported IMG MAMMOGRAPHY ORDERABLES Anitha l Result * ABSTRACT HPV-NO CHARGE (04/25/2018) HPV Abstract See Scanned Document [facility] 04/25/2018 Narrative [facility] - 04/25/2018 Kelsie Best LPN Please abstract the following data from this visit with this patient into the appropriate field in [facility]: Other Tests found in the patient's chart through Chart Review/Care Everywhere: Pap smear done by this group [facility] (Robert Obtano) on this date: 04-25-2018 HPV done at [facility] on 04-25-2018 SEE CARE EVERYWHERE [facility] us Provider Outside LAB - HIM EXTERNAL RESULT Final Result [facility] [address] [facility] [address], [facility] [phone] * ABSTRACT PAP-NO CHARGE (04/25/2018) PAP-ABSTRACT See Scanned Document [facility] 04/25/2018 Narrative [facility] - 04/25/2018 Kelsie Best LPN Please abstract the following data from this visit with this patient into the appropriate field in Epic: Other Tests found in the patient's chart through Chart Review/Care Everywhere: Pap smear done by this group [facility] on this date: 04-25-2018 HPV done at [facility] on 04-25-2018 SEE CARE EVERYWHERE [facility] us Provider Outside LAB - HIM EXTERNAL RESULT Final Result [facility] [address] [phone] * Colonoscopy - [facility] Scan (01/07/2018) Narrative [facility] - 01/07/2018 Kelsie Best LPN Please abstract the following data from this visit with this patient into the appropriate field in Epic: Other Tests found in the patient's chart through Chart Review/Care Everywhere: Colonoscopy done on 01-07-2018 at [facility]-repeat in 5 years SEE CARE EVERYWHERE [facility] us Provider Outside PROCEDURES Final Result * Hepatitis C antibody (06/11/2016 10:43 AM DEALER ACCOUNTS INVESTIGATOR) Pathologist [facility] Hepatitis C Antibody Nonreactive Assay performance characteristics have not been established for newborns, infants, and children NR [facility] Blood specimen (specimen) 06/11/2016 10:43 AM DEALER ACCOUNTS INVESTIGATOR 06/11/2016 10:44 AM DEALER ACCOUNTS INVESTIGATOR us Kwan De La Cruz MD LAB - BLOOD ORDERABLES Final R esult [facility] [address] [place] [address] from Last 3 Months or Most Recently Relevant to Health Maintenance Insurance [employer] MEDICARE ADVANTAGE [employer] MEDICARE ADVANTAGE Care Teams Button Grader Relationship Specialty Start Date End Date Kory Magallon MD [facility] [address]. [place] [address] PCP - General Family Medicine 11/14/23 Claudette Retana MD [address] [place] [address] Assigned Surgical Provider 11/17/22
== END 2024-03-12 10:12 | disposition home or self-care (01) ==
LOC: MRI 10:12
PROVIDERS: PCP Family Medicine; Visit Provider Orthopaedic Surgery Orthopaedic Surgery of the Spine
DX: M54.50 Low back pain, unspecified (principal); M48.062 Spinal stenosis, lumbar region with neurogenic claudication; M51.26 Other intervertebral disc displacement, lumbar region
CPT/HCPCS: 72148

== ENCOUNTER 2024-03-20 09:34 | Outpatient (CLI) | payer MEDICARE, SELFPAY ==
--- OUTSIDE RECORDS SUMMARY | 2024-03-20 09:38 | XMS_ITS | Continuity of Care Document ---
Author Organization [facility] Address [address] [place] [address] Phone Care Team Providers Care Disposal Operator Name Role Phone Manjula Perez MD Unavailable [...] Protein Dna Antibody, Single Strand Dna Antibody, [place] Nuclear Antigen Antibodies Antinuclear Antibodies Advance Directives Directive Yes / No Effective Date File Name No Information Encounters Encounter Description Practice Location Reason(s) For Visit Diagnoses Date Provider Providers Copied on Encounter [facility], [address], [place], [address], [place] tel:[phone] [facility] , No Information Chris Fair. [facility] [address], [place], [address], [place]. tel:[phone] Office/Outpa tient Visit, New [facility], [address], [place], [address], [place] tel:[phone] [facility] , Abnormal Lab Study (chief complaint) Musculoske letal pain (chief complaint) Raised antibody titerMyalgia Chris Fair. [facility] [address], [place], [address], [place]. tel:[phone] Referring Provider: Manjula Amador, [facility] [address], [place], [address]. tel:[phone] Family History Family Member Type Diagnosis Age At Onset Mother Problem Arthritis Mother Problem Thyroid disorder Maternal grandmother Problem Arthritis Immunizations Vaccine Date Status Comments COVID-19 Pfizer administered Source: Othe r Provider COVID-19 Pfizer administered Source: Othe r Provider Payers Payer name Insurance type Covered constitution party ID Meaghan flores(s) [facility] [id number] Social History Type Description Quantity Date Captured [...]
--- OUTSIDE RECORDS SUMMARY | 2024-03-20 09:38 | XMS_ITS | Encounter Summary ---
Author Organization [facility] Address [address] [place] [address] Care Team Providers Care Mapping Pilot Name Role Phone Kwan De La Cruz MD Primary Care Provider Claudette Retana MD Unavailable Kwan De La Cruz MD Unavailable [phone] Mechelle Mtz INTENSIVE CARE NURSE CHARGE POSTER Unavailable + Kwan De La Cruz MD Unavailable [phone] Mechelle Mtz INTENSIVE CARE NURSE CHARGE POSTER Unavailable + Mechelle Mtz APRN CHARGE POSTER Unavailable + Claudette Retana MD Unavailable Kory Magallon MD Primary Care Provider [phone] Encounter Details Date Type Department Care Team (Late st Contact Info) Description 05/01/2021 [facility] Medical Advice [address] [address] Nasrin Smith, RN Social History Tobacco Use Types Packs/Day Years Used Date Smoking Tobacco: Never Smokeless Tobacco: Never Alcohol Use Standard Drinks/Week Comments Yes 0 (1 standard drink = 0.6 oz pur e alcohol) occassional PHQ-2 Answer Date Recorded PHQ-2 Score 0 04/28/2021 Comments No Sex and Gender Information Value Date Recorded Sex Assigned at Female 04/21/2021 9:03 AM WOODEN BARREL MECHANIC Legal Sex Female 4:57 AM WOODEN BARREL MECHANIC Gender Identity Female 04/21/2021 9:03 AM WOODEN BARREL MECHANIC Sexual Orientation Not on file COVID-19 Exposure Response Date Recorded In the last month, have you been in contact with someone who was confirmed or suspected to have Coronavirus / COVID-19? No / Unsure 04/28/2021 1:37 PM WOODEN BARREL MECHANIC documented as of this encounter Plan of Treatment Not on file documented as of this encounter Visit Diagnoses Not on filedocumented in this encounter Care Teams Mapping Pilot Relationship Specialty Start Date End Date Kwan De La Cruz MD PCP - General Family Practice 02/17/18 06/19/23 Kory Magallon MD [facility] [address] [address] PCP - General Family Medicine 11/14/23 Claudette Retana MD [address] [place] [address] [address] [place], [place] [address] Assigned Surgical Provider 03/11/20 10/26/22 Kwan De La Cruz MD [address] [place] [address] Assigned PCP 01/29/21 05/27/21 Mechelle Mtz APRN CHARGE POSTER [facility] [place] [address] [address] [phone] Assigned PCP 05/28/21 07/29/21 Kwan De La Cruz MD [address] [place] [id number] Assigned PCP 07/30/21 03/09/22 Mechelle Mtz APRN CHARGE POSTER [facility] [place] [address] [place] [phone] Assigned PCP 03/10/22 05/04/22 Mechelle Mtz APRN CHARGE POSTER [facility] [place] [address] [place] [phone] Assigned PCP 07/14/22 01/25/23 Claudette Retana MD [address] [place] [address] Assigned Surgical Provider 11/17/22 documented as of this encounter
--- OUTSIDE RECORDS SUMMARY | 2024-03-20 09:38 | XMS_ITS | Encounter Summary ---
Author Organization [place] Address [address] [place] [address]. [place] [address] Care Team Providers Care Municipal Court Magistrate Name Role Phone Claudette Retana MD Unavailable Kory Magallon MD Primary Care Provider [phone] Reason for Visit * Reason Onset Date Comments Call Back 02/07/2024 Pt would like to schedule her annual appointment with Dr. Retana. Advised that there are changes in the clinic and I can scheduled with someone else but she requested a call from the clinic. Encounter Details Date Type Department Care Team ([facility] Contact Info) Description 02/07/[address] [place] [address] Claudette Retana MD [address] [place] [address] [address] [place] [address] Call Back (Pt would like [...] Sex Assigned at Female 04/21/2021 9:03 AM HEADING REPAIRER Legal Sex Female 4:57 AM HEADING REPAIRER Gender Identity Female 04/21/2021 9:03 AM HEADING REPAIRER Sexual Orientation Not on file documented as of this encounter Miscellaneous Notes * Telephone Encounter - Eliza Braun RN - 02/07/2024 1:26 PM CDT Pt needs appointment in October for skin check. Public Area Supervisor informed her again that Dr Retana's template is closed and she has no openings prior to her template change. Offered to schedule with another provider and she declined. Offered to send message to other clinics close to her home and she declined. She stated she will call and find another hair specialist herself. Eliza Braun RN on 02/07/2024 at [...] on filedocumented in this encounter Care Teams Municipal Court Magistrate Relationship Specialty Start Date End Date Kory Magallon MD [facility] [address]. [place] [address] PCP - General Family Medicine 11/14/23 Claudette Retana MD [address] [place] [address] Assigned Surgical Provider 11/17/22 documented as of this encounter
--- OUTSIDE RECORDS SUMMARY | 2024-03-20 09:38 | XMS_ITS | Encounter Summary ---
Author Organization [place] Address [address] [place] [address] Care Team Providers Care Chauffeur [employer] Limousine Name Role Phone Kwan De La Cruz MD Primary Care Provider [phone] Kwan De La Cruz MD Unavailable [phone] Mechelle Mtz APRN LANDSCAPER Unavailable + Claudette Retana MD Unavailable Miguelito Membreno MD Unavailable [phone] Dayna Guzman SODA ROOM OPERATOR CNM Unavailable Unava ilable Adrian Montesinos DPM Unavailable [phone] Kwan De La Cruz MD Unavailable [phone] Mechelle Mtz SODA ROOM OPERATOR LANDSCAPER Unavailable + Kwan De La Cruz MD Unavailable [phone] Mechelle Mtz APRN LANDSCAPER Unavailable + Mechelle Mtz SODA ROOM OPERATOR LANDSCAPER Unavailable + Claudette Retana MD Unavailable Kory Magallon MD Primary Care Provider Encounter Details Date Type Department Care Team (Late st Contact Info) Description 01/26/2020 [facility] [address] [phone] Ginette Padilla RN Social History Tobacco Use Types Packs/Day Years Used Date Smoking Tobacco: Never Smokeless Tobacco: Never Alcohol Use Standard Drinks/Week Comments Yes 0 (1 standard drink = 0.6 oz pur e alcohol) occassional PHQ-2 Answer Date Recorded PHQ-2 Score 0 09/18/2019 Comments No Sex and Gender Information Value Date Recorded Sex Assigned at Female 04/21/2021 9:03 AM MUSKRAT TRAPPER Legal Sex Female 4:57 AM MUSKRAT TRAPPER Gender Identity Female 04/21/2021 9:03 AM MUSKRAT TRAPPER Sexual Orientation Not on file COVID-19 Exposure [...] on filedocumented in this encounter Care Teams [employer] Relationship Specialty Start Date End Date Kwan De La Cruz MD PCP - General Family Practice 02/17/18 06/19/23 Kory Magallon MD [facility] [address] [facility] [place] [address] PCP - General Family Medicine 11/14/23 Kwan De La Cruz MD [facility] [place] [address] Assigned PCP 03/15/19 03/05/20 Mechelle Mtz APRN LANDSCAPER [facility] [address], [place] [address] Assigned PCP 03/06/20 01/28/21 Claudette Retana MD [address] [place] [address] Assigned Surgical Provider 03/11/2010/26/22 [place] [address] [place] [address] Assigned Musculoskeletal Provider 03/11/20 08/27/20 Dayna Guzman APRN CNM Assigned OBGYN Provider 03/11/20 10/22/20 Adrian Montesinos DPM [address] [place] [address] Assigned Musculoskeletal Provider 08/28/20 10/22/20 Kwan De La Cruz MD [address] [place] [address] Assigned PCP 01/29/21 05/27/21 Mechelle Mtz APRN LANDSCAPER [facility] [place] [address] [place] [phone] Assigned PCP 05/28/21 07/29/21 Kwan De La Cruz MD [address] [place] [address] Assigned PCP 07/30/21 03/09/22 Mechelle Mtz APRN LANDSCAPER [facility] [place] [address] [place] [address] Assigned PCP 03/10/22 05/04/22 Mechelle Mtz APRN LANDSCAPER [facility] [address], [place] [address] Assigned PCP 07/14/22 01/25/23 Claudette Retana MD [address] [place] [address] Assigned Surgical Provider 11/17/22 documented as of this encounter
--- OUTSIDE RECORDS SUMMARY | 2024-03-20 09:38 | XMS_ITS | Continuity of Care Document ---
Author Organization [facility] Address [address] [place] [address] Phone Care Team Providers Care Aluminum Polisher Name Role Phone Lester ROMAN, PhD, Joaquin [...] Available - Active Procedures Procedure Date Office/Outpatient Visit,[facility] 2023 Advance Directives Directive Yes / No Effective Date File Name No Information Encounters Encounter Description Practice Location Reason(s) For Visit Diagnoses Date Provider Providers Copied on Encounter [facility], [address], [place], [place], [id number], [place] tel:[phone] [facility] - [facility] No Information Lester Nuñez. [facility], [address] [place] [address] [address], [place], [address], [place]. tel:[phone] [facility], [address], [place], [place], [id number], [place] tel:[phone] [facility] - [facility] No Information Tamera Rivera. [facility], [address] [place] [address], [address], [place], [address], [place]. tel:[phone] Office/Outpat ient Visit,[place], [place] [facility], [address], [place], [id number], [place] tel:[phone] [facility] - [facility] Spondylolisthe sis, lumbar regionSpinal stenosis, lumbar region with neurogenic claudication Lester Nuñez. [facility], [address], [place], [address], [place]. tel:[phone] Referring Provider: Rudy Polanco, [facility] [address], [place], [address]. tel:[phone] Family History Family Member Type Diagnosis Age At Onset Mother Problem (finding) Diabetes mellitus Father Problem (finding) Cancer, unknown type Payers Payer name Insurance type Covered republican ID Authoriza tilivier(s) [employer] Medicare [facility] CI [id number] Social History Type Description Quantity Date [...]
--- OUTSIDE RECORDS SUMMARY | 2024-03-20 09:38 | XMS_ITS | Clinical Summary ---
Author Organization [place] Address [address] [place] [address] Care Team Providers Care Healthcare Consulting Manager Name Role Phone Claudette Retana MD Unavailable Kory Magallon MD Primary Care Provider [phone] Allergies Active Allergy Reactions Criticality Noted Date [...] Type Department Care Team Description 02/07/[address] [address] Claudette Retana MD Call Back [...] Sex Assigned at Female 04/21/2021 9:03 AM FORMULA CLERK Legal Sex Female 4:57 AM FORMULA CLERK Gender Identity Female 04/21/2021 9:03 AM FORMULA CLERK Sexual Orientation Not on file Last Filed Vital Signs Vital Sign Reading Time Taken Comments Blood Pressure 116/80 05/21/2020 9:28 AM FORMULA CLERK Pulse 51 05/21/2020 9:28 AM FORMULA CLERK Temperature 36.1 ??C (97 ??F) 05/21/2020 9:28 AM FORMULA CLERK Respiratory Rate 16 05/21/2020 9:28 AM FORMULA CLERK Oxygen Saturation 96% 05/21/2020 9:28 AM FORMULA CLERK Inhaled Oxygen Concentration - - Weight 112.3 kg (247 lb 9.6 oz) 05/21/2020 9:28 AM FORMULA CLERK Height 171.5 cm (5' 7.5) 03/24/2019 10 :42 AM FORMULA CLERK Body Mass Index 38.21 03/24/2019 10:42 AM FORMULA CLERK Plan of Treatment Health Maintenance Due Date [...] HEPATITIS C ANTIBODY Routine 06/11/2016 10:43 AM FORMULA CLERK Routine general medical examination at a health care facility from Last 3 Months or Most Recently Relevant to Health Maintenance Results * Lipid panel reflex to direct LDL Fasting (02/24/2019 9:25 AM CDT) Cholesterol 148 <200 mg/dL 02/24/2019 1:20 PM CDT [facility] Triglycerides 64 <150 mg/dL 02/24/2019 1:21 PM CDT [facility] Comment:Fasting specimen HDL Cholesterol 70 >49 mg/dL 9 1:23 PM CDT [facility] LDL Cholesterol Calculated 65 <100 mg/dL 02/24/2019 1:23 PM CDT [facility] Comment:Desirable: <100 mg/d l Non HDL Cholesterol 78 <130 mg/dL 02/24/2019 1:23 PM CDT [facility] Blood specimen (specimen) 02/24/2019 9:25 AM CDT 02/24/2019 9:26 AM CDT Kwan De La Cruz MD LAB - BLOOD ORDERABLES Final R esult [facility] [address] [place] [address] * Basic metabolic panel (Ca, Cl, CO2, Creat, Gluc, K, Na, BUN) (02/24/2019 9:25 AM CDT) Sodium 141 133 - 144 mmol/L 02/24/2019 1:10 PM CDT [facility] Potassium 4.1 3.4 - 5.3 mmol/L 02/24/2019 1:10 PM CDT [facility] Chloride 107 94 - 109 mmol/L 02/24/2019 1:10 PM CDT [facility] Carbon Dioxide 30 20 - 32 mmol/L 02/24/2019 1:23 PM CDT [facility] Anion Gap 4 3 - 14 mmol/L 02/24/2019 1:23 PM CDT [facility] Glucose 95 70 - 99 mg/dL 02/24/2019 1:23 PM CDT [facility] Comment:Fasting specimen Urea Nitrogen 19 7 - 30 mg/dL 02/24/2019 1:23 PM CDT [facility] Creatinine 0.79 0.52 - 1.04 mg/dL 02/24/2019 1:23 PM CDT [facility] GFR Estimate 82 >60 mL/min/{1. 73_m2} 02/24/2019 1:23 PM CDT [facility] Comment: Non GFR Calc Starting 05/06/2018, serum creatinine based estimated GFR (eGFR) will be calculated using the Chronic Kidney Disease Epidemiology Collaboration (CKD-EPI) equation. GFR Estimate If Black >90 >60 mL/min/{1. 73_m2} 02/24/2019 1:23 PM CDT [facility] Comment: GFR Calc Starting 05/06/2018, serum creatinine based estimated GFR (eGFR) will be calculated using the Chronic Kidney Disease Epidemiology Collaboration (CKD-EPI) equation. Calcium 9.3 8.5 - 10.1 mg/dL 02/24/2019 1:23 PM CDT [facility] Blood specimen (specimen) 02/24/2019 9:25 AM CDT 02/24/2019 9:26 AM CDT us Kwan De La Cruz MD LAB - BLOOD ORDERABLES Final R esult [facility] [address] [place] [address] * Mammogram - HIM Scan (07/18/2018) Anatomical Region Laterality Modality Other Narrative 07/18/2018 Elias Ramos Sent to Abstract Quality Initiatives Please abstract the following data from this visit with this patient into the appropriate field in [facility]: Mammogram done on this date: 07/18/2018 (approximately), by this group: [facility], results were Neg. ?? us Patient Reported IMG MAMMOGRAPHY ORDERABLES Anitha l Result * ABSTRACT HPV-NO CHARGE (04/25/2018) HPV Abstract See Scanned Document [facility] 04/25/[address] [facility] - 04/25/2018 Kelsie Best LPN Please abstract the following data from this visit with this patient into the appropriate field in Epic: Other Tests found in the patient's chart through Chart Review/Care Everywhere: Pap smear done by this group [facility] ([facility]) on this date: 04-25-2018 HPV done at [facility] on 04-25-2018 SEE CARE EVERYWHERE [facility] us Provider Outside LAB - HIM EXTERNAL RESULT Final Result Performing Organization Address City/[facility] Co de Phone Number [facility] [address] [place] [address], [facility] [phone] * ABSTRACT PAP-NO CHARGE (04/25/2018) PAP-ABSTRACT See Scanned Document [facility] 04/25/[address] [facility] - 04/25/2018 Kelsie Best LPN Please abstract the following data from this visit with this patient into the appropriate field in Epic: Other Tests found in the patient's chart through Chart Review/Care Everywhere: Pap smear done by this group [facility] ([facility]) on this date: 04-25-2018 HPV done at [facility] on 04-25-2018 SEE CARE EVERYWHERE [facility] us Provider Outside LAB - HIM EXTERNAL RESULT Final Result Performing Organization Address [facility] Co de Phone Number [facility] [address] [place] [address], [facility] [phone] * Colonoscopy - HIM Scan (01/07/2018) Narrative [facility] - 01/07/2018 Kelsie Best LPN Please abstract the following data from this visit with this patient into the appropriate field in Epic: Other Tests found in the patient's chart through Chart Review/Care Everywhere: Colonoscopy done on 01-07-2018 at [facility]-repeat in 5 years SEE CARE EVERYWHERE [facility] us Provider Outside PROCEDURES Final Result * Hepatitis C antibody (06/11/2016 10:43 AM FORMULA CLERK) Hepatitis C Antibody Nonreactive Assay performance characteristics have not been established for newborns, infants, and children [facility] Blood specimen (specimen) 06/11/2016 10:43 AM FORMULA CLERK 06/11/2016 10:44 AM FORMULA CLERK Kwan De La Cruz MD LAB - BLOOD ORDERABLES Final R esult [facility] [address] [place] [address] from Last 3 Months or Most Recently Relevant to Health Maintenance Insurance [employer] MEDICARE ADVANTAGE [employer] MEDICARE ADVANTAGE Care Teams Healthcare Consulting Manager Relationship Specialty Start Date End Date Kory Magallon MD [facility] [address], [place] [address] PCP - General Family Medicine 11/14/23 Claudette Retana MD [address] [place] [address] [id number] Assigned Surgical Provider 11/17/22
--- OUTSIDE RECORDS SUMMARY | 2024-03-20 09:38 | XMS_ITS | Encounter Summary ---
Author Organization [place] Address [address] [place] [address] Care Team Providers Care Cutter Hand Name Role Phone Kwan De La Cruz MD Primary Care Provider [phone] Claudette Retana MD Unavailable Kwan De La Cruz MD Unavailable [phone] Mechelle Mtz SUPERVISOR INSPECTION ROOM PASSENGER TIRE INSPECTOR Unavailable + Kwan De La Cruz MD Unavailable [phone] Mechelle Mtz SUPERVISOR INSPECTION ROOM PASSENGER TIRE INSPECTOR Unavailable + Mechelle Mtz APRN PASSENGER TIRE INSPECTOR Unavailable + Claudette Retana MD Unavailable Kory Magallon MD Primary Care Provider [phone] Encounter Details Date Type Department Care Team (Late st Contact Info) Description 05/01/2021 [facility] Medical Advice [address] [address] Ginette Padilla, RN Social History Tobacco Use Types Packs/Day Years Used Date Smoking Tobacco: Never Smokeless Tobacco: Never Alcohol Use Standard Drinks/Week Comments Yes 0 (1 standard drink = 0.6 oz pur e alcohol) occassional PHQ-2 Answer Date Recorded PHQ-2 Score 0 04/28/2021 Comments No Sex and Gender Information Value Date Recorded Sex Assigned at Female 04/21/2021 9:03 AM METAL MELTER Legal Sex Female 4:57 AM METAL MELTER Gender Identity Female 04/21/2021 9:03 AM METAL MELTER Sexual Orientation Not on file COVID-19 Exposure Response Date Recorded In the last month, have you been in contact with someone who was confirmed or suspected to have Coronavirus / COVID-19? No / Unsure 04/28/2021 1:37 PM METAL MELTER documented as of this encounter Plan of Treatment Not on file documented as of this encounter Visit Diagnoses Not on filedocumented in this encounter Care Teams Cutter Hand Relationship Specialty Start Date End Date wKan De La Cruz MD PCP - General Family Practice 02/17/18 06/19/23 Kory Magallon MD [facility] [address], [place] [address] PCP - General Family Medicine 11/14/23 Claudette Retana MD [address] [place] [address] 679475 Assigned Surgical Provider 03/11/20 10/26/22 Kwan De La Cruz MD [address] [place] [address] Assigned PCP 01/29/21 05/27/21 Mechelle Mtz APRN PASSENGER TIRE INSPECTOR [facility] [place] [address] Assigned PCP 05/28/21 07/29/21 Kwan De La Cruz MD [address] [place] [id number] Assigned PCP 07/30/21 03/09/22 Mechelle Mtz APRN PASSENGER TIRE INSPECTOR [facility] [address] [place] [address] Assigned PCP 03/10/22 05/04/22 Mechelle Mtz APRN PASSENGER TIRE INSPECTOR [facility] [address] [place] [phone] Assigned PCP 07/14/22 01/25/23 Claudette Retana MD [address] [place] [address] Assigned Surgical Provider 11/17/22 documented as of this encounter
--- OUTSIDE RECORDS SUMMARY | 2024-03-20 09:38 | XMS_ITS | Clinical Summary ---
Author Organization [employer] [facility] Address [place], [place] [address] Care Team Providers Care Manufacturing Controller Name Role Phone Colby Chakraborty Unavailable [phone] Vikas Barajas MD Unavailable [phone] Pcp, No Primary Care Provider Unavailabl e Allergies No known active allergies Medications Medication [...] Type Department Care Team Description 03/03/2024 Telephone [facility] [address] [place] [address] Rudy Henderson MD Refill Request ( gabapentin (NEURONTIN) 300 mg capsule [Pharmacy Med) 03/02/2024 Refill [facility] [address] [place] [address] Rudy Henderson MD Refill Request (Gabapentin) 01/30/2024 10:45 AM CDT Ancillary Procedure [facility] [address] [place] [address] 01/30/2024 10:00 AM CDT Office Visit [address] [address] Rudy Henderson MD Musculoskeletal Problem (Follow up back pain, ANDREW on 12/10/23) 01/30/2024 Travel from Last 3 Months Immunizations Name Administration Dates Next Due COVID-19 vaccine ([employer] [place] 30mcg/0.3mL) LORNA HICKS 03/16/2021,08/13/2020,07/23/2020 Influenza RIV4 (Age 18+ Year s) [...] (Latest Contact Info) Description 04/07/2024 12:30 PM IMPREGNATOR Hospital Encounter [facility] [address] [place] [address] Joaquin Batista MD [address] [facility] [address] [place] [address] 04/07/2024 12:30 PM IMPREGNATOR - 04/07/2024 5:21 PM IMPREGNATOR Surgery [facility] [address] [place] [address] Joaquin Batista MD [address] [facility] [address] [place] [address] Posterior Spine Fusion L4 to: L5 Scheduled Procedures Name Priority Associated Diagnoses Date/Ti me FUSION POSTERIOR SPINE LEVEL 01 Elective Spondylolisthesis, Lumbar M43.16 Stenosis, Lumbar - w/Neurogenic Claudication M48.062 04/07/2024 12:30 PM IMPREGNATOR FUSION TRANSFORAMINAL SPINAL INTERBODY LEVEL 1 Elective Spondylolisthesis, Lumbar M43.16 Stenosis, Lumbar - w/Neurogenic Claudication M48.062 04/07/2024 12:30 PM IMPREGNATOR Health Maintenance Due Date Last Done Comments [...] For Patients: ??As a result of the Cures Act, medical imaging exams and procedure [...] 16 Negative Negative 02/23/2023 7:05 AM CDT [facility] TRAL LABORATORY TYPE 18 Negative Negative 02/23/2023 7:05 AM CDT [facility] TRAL LABORATORY OTHER HIGH RISK TYPES Negative Negative 02/23/2023 7:05 AM CDT [facility] TRAL LABORATORY Other (Cervical) 02/19/2023 12:20 PM CDT 02/20/2023 4:28 PM CDT Narrative [facility] - 02/23/2023 7:05 AM CDT HPV types 16, 18, 31, 33, 35, 39, 45, 51, 52, 56, 58, 59, 66 and 68 DNA were undetectable or below the pre-set threshold. Methodology: [employer] 4800 HPV Test Alie Hampton PA-C MICROBIOLOGY [facility] [address] [place] [address], * LIPID POCT [facility] ONLY (09/17/2016 10:37 AM CDT) LDL CHOLESTEROL 44 mg/dL [facility] Blood BLOOD SPECIMEN / Unknown 09/17/2016 10:37 AM CDT Marlin Sharpe SAFETY LEADER CHEMISTRY [facility] [address] [place] [address] from Last 3 Months or Most Recently [...] 3:28 AM 11/14/2010 5:18 PM Care Teams Manufacturing Controller Relationship Specialty Start Date End Date Pcp, No . PCP - General 03/18/24 Colby Chakraborty PA [address] [place] [address] Cardiology - EP Cardiovascular Disease 11/07/19 Vikas Barajas MD [address] [place] [address] Cardiology - EP Cardiovascular Disease 11/02/16
--- OUTSIDE RECORDS SUMMARY | 2024-03-20 09:38 | XMS_ITS | Encounter Summary ---
Author Organization [facility] Address [address] [place] [address] Care Team Providers Care Slate Splitter Name Role Phone Kwan De La Cruz MD Primary Care Provider [phone] Claudette Retana MD Unavailable Kwan De La Cruz MD Unavailable [phone] Mechelle Mtz LANDFILL GAS TECHNICIAN BELTING INSPECTOR Unavailable + Kwan De La Cruz MD Unavailable [phone] Mechelle Mtz LANDFILL GAS TECHNICIAN BELTING INSPECTOR Unavailable + Mechelle Mtz APRN BELTING INSPECTOR Unavailable + Claudette Retana MD Unavailable Kory Magallon MD Primary Care Provider [phone] Encounter Details Date Type Department Care Team (Late st Contact Info) Description 05/01/2021 [facility] [address] [address] Carmen Zuniga Social History Tobacco Use Types Packs/Day Years Used Date Smoking Tobacco: Never Smokeless Tobacco: Never Alcohol Use Standard Drinks/Week Comments Yes 0 (1 standard drink = 0.6 oz pur e alcohol) occassional PHQ-2 Answer Date Recorded PHQ-2 Score 0 04/28/2021 Comments No Sex and Gender Information Value Date Recorded Sex Assigned at Female 04/21/2021 9:03 AM MEDICAL BILLING SPECIALIST Legal Sex Female 4:57 AM MEDICAL BILLING SPECIALIST Gender Identity Female 04/21/2021 9:03 AM MEDICAL BILLING SPECIALIST Sexual Orientation Not on file COVID-19 Exposure Response Date Recorded In the last month, have you been in contact with someone who was confirmed or suspected to have Coronavirus / COVID-19? No / Unsure 04/28/2021 1:37 PM MEDICAL BILLING SPECIALIST documented as of this encounter Plan of Treatment Not on file documented as of this encounter Visit Diagnoses Not on filedocumented in this encounter Care Teams Slate Splitter Relationship Specialty Start Date End Date Kwan De La Cruz MD PCP - General Family Practice 02/17/18 06/19/23 Kory Magallon MD [facility] [address], [place] [address] PCP - General Family Medicine 11/14/23 Claudette Retana MD [address] [place] [address] 266315 Assigned Surgical Provider 03/11/20 10/26/22 Kwan De La Cruz MD [address] [place] [address] Assigned PCP 01/29/21 05/27/21 Mechelle Mtz APRN BELTING INSPECTOR [facility] [place] [address] Assigned PCP 05/28/21 07/29/21 Kwan De La Cruz MD [address] [place] [address] [id number] Assigned PCP 07/30/21 03/09/22 Mechelle Mtz APRN BELTING INSPECTOR [facility] [address] [place] [address] Assigned PCP 03/10/22 05/04/22 Mechelle Mtz APRN BELTING INSPECTOR [facility] [address] [place] [phone] Assigned PCP 07/14/22 01/25/23 Claudette Retana MD [address] [place] [address] Assigned Surgical Provider 11/17/22 documented as of this encounter
--- OUTSIDE RECORDS SUMMARY | 2024-03-20 09:38 | XMS_ITS | Encounter Summary ---
Author Organization [facility] Address [address] [place] [address] Care Team Providers Care Customs Opener Verifier Packer Name Role Phone Oppel, Murali Kothari PA-C Primary Care Provider Kwan De La Cruz MD Primary Care Provider [phone] Kwan De La Cruz MD Unavailable [phone] Kwan De La Cruz MD Unavailable [phone] Brandie Jones ENTERPRISE SYSTEMS ENGINEER SUBCONTRACT MANAGER Unavailable Unavailable Kwan De La Cruz MD Unavailable [phone] SmithMechelle schmidt APRN SUBCONTRACT MANAGER Unavailable + Claudette Retana MD Unavailable Miguelito Membreno MD Unavailable [phone] Dayna Guzman ENTERPRISE SYSTEMS ENGINEER CNM Unavailable Unava ilable Adrian Montesinos DPM Unavailable [phone] Kwan De La Cruz MD Unavailable [phone] Mechelle Mtz APRN SUBCONTRACT MANAGER Unavailable + Kwan De La Cruz MD Unavailable [phone] Mechelle Mtz APRN SUBCONTRACT MANAGER Unavailable + SmithMechelle schmidt APRN SUBCONTRACT MANAGER Unavailable + Claudette Retana MD Unavailable Kory Magallon MD Primary Care Provider Reason for Visit * Reason Onset Date Comments Outreach 01/15/2018 vip mammo att 1 Encounter Details Date Type Department Care Team (Late st Contact Info) Description 01/15/2018 Telephone [facility] [address] [place] [address] OppelMurali PA-C [address] [place] [address] Outreach (vip mammo att 1 ) Social History Tobacco Use Types Packs/Day Years Used Date Smoking Tobacco: Never Smokeless Tobacco: Never Alcohol Use Standard Drinks/Week Comments Yes 0 (1 standard drink = 0.6 oz pur e alcohol) occassional Comments No Sex and Gender Information Value Date Recorded Sex Assigned at Female 04/21/2021 9:03 AM STRAINER TENDER Legal Sex Female 4:57 AM STRAINER TENDER Gender Identity Female 04/21/2021 9:03 AM STRAINER TENDER Sexual Orientation Not on file documented as of this encounter Miscellaneous Notes * Telephone Encounter - Priscilla Fatima - 01/15/2018 12:08 PM CDT 01/15/2018 Attempt 1 Contacted patient in regards to scheduling VIP mammogram Message on voicemail Patient is also due for - Comments: Outreach Product Strategy Director Priscilla Fatima documented in this encounter Plan of Treatment Not on file documented as of this encounter Visit Diagnoses Not on filedocumented in this encounter Additional Health Concerns Infection Onset Date Last Indicated Resolved Time Rule Out COVID-19 11/26/2019 11/26/2019 11/27/2019 7:57 PM CDT documented as of this encounter Care Teams Customs Opener Verifier Packer Relationship Specialty Start Date End Date Murali Hickey PA-C [address] [place], [place] [phone] PCP - General Family Practice 12/17/17 02/16/18 [place] [address] [place] [address] PCP - General Family Practice 02/17/18 06/19/23 Kwan De La Cruz MD [address] [place] [address] PCP - Assigned PCP 03/04/16 07/22/18 Kory Magallon MD [facility] [address], [place] [address] PCP - General Family Medicine 11/14/23 Kwan De La Cruz MD [address] [place] [address] Assigned PCP 03/04/16 10/25/18 Brandie Jones APRN SUBCONTRACT MANAGER Assigned PCP 10/26/18 03/14/19 Kwan De La Cruz MD [address] [place] [address] Assigned PCP 03/15/19 03/05/20 Mechelle Mtz APRN SUBCONTRACT MANAGER [facility] [address], [place] [address] Assigned PCP 03/06/20 01/28/21 Claudette Retana MD [address] [place] [address] Assigned Surgical Provider 03/11/2010/26/22 [place] [address] [facility] [place] [address] Assigned Musculoskeletal Provider 03/11/20 08/27/20 Dayna Guzman, ENTERPRISE SYSTEMS ENGINEER CNM Assigned OBGYN Provider 03/11/20 10/22/20 Adrian Montesinos, DPCollin [address] [place] [address] Assigned Musculoskeletal Provider 08/28/20 10/22/20 Kwan De La Cruz MD [address] [place] [address] Assigned PCP 01/29/21 05/27/21 Mechelle Mtz APRN SUBCONTRACT MANAGER [facility] [place] [address] Assigned PCP 05/28/21 07/29/21 Kwan De La Cruz MD [facility] [place] [address] Assigned PCP 07/30/21 03/09/22 Mechelle Mtz APRN SUBCONTRACT MANAGER [facility] [place] [address] Assigned PCP 03/10/22 05/04/22 Mechelle Mtz APRN SUBCONTRACT MANAGER [facility] [phone] Assigned PCP 07/14/22 01/25/23 Claudette Retana MD [address] [place] [address] [address] [place] [address] Assigned Surgical Provider 11/17/22 documented as of this encounter
--- OUTSIDE RECORDS SUMMARY | 2024-03-20 09:38 | XMS_ITS | Referral Summary ---
Author Organization [facility] Address [address] [place] [address] Care Team Providers Care Heat And Vent Aircraft Mechanic Name Role Phone Claudette Retana MD Unavailable Kory Magallon MD Primary Care Provider [phone] Encounters Date Type Department Care Team Description 02/07/[address] [place] [address] Claudette Retana MD Call Back [...] given to patient to review. Kelsie Best [facility] Immunizations Name Administration Dates Next Due Influenza [...] Sex Assigned at Female 04/21/2021 9:03 AM SALES UTILITY REPRESENTATIVE Legal Sex Female 4:57 AM SALES UTILITY REPRESENTATIVE Gender Identity Female 04/21/2021 9:03 AM SALES UTILITY REPRESENTATIVE Sexual Orientation Not on file Last Filed Vital Signs Vital Sign Reading Time Taken Comments Blood Pressure 116/80 05/21/2020 9:28 AM SALES UTILITY REPRESENTATIVE Pulse 51 05/21/2020 9:28 AM SALES UTILITY REPRESENTATIVE Temperature 36.1 ??C (97 ??F) 05/21/2020 9:28 AM SALES UTILITY REPRESENTATIVE Respiratory Rate 16 05/21/2020 9:28 AM SALES UTILITY REPRESENTATIVE Oxygen Saturation 96% 05/21/2020 9:28 AM SALES UTILITY REPRESENTATIVE Inhaled Oxygen Concentration - - Weight 112.3 kg (247 lb 9.6 oz) 05/21/2020 9:28 AM SALES UTILITY REPRESENTATIVE Height 171.5 cm (5' 7.5) 03/24/2019 10 :42 AM SALES UTILITY REPRESENTATIVE Body Mass Index 38.21 03/24/2019 10:42 AM SALES UTILITY REPRESENTATIVE Plan of Treatment Not on file Procedures Procedure Name Priority Date/Time Associated Diagnosis Comments BASIC METABOLIC PANEL Routine 02/24/2019 9:25 AM CDT Routine history and physical examination of adult LIPID REFLEX TO DIRECT LDL PANEL Routine 02/24/2019 9:25 AM CDT Routine history and physical examination of adult MAMMOGRAM - HIM SCAN Routine 07/18/2018 ABSTRACT PAP ([facility] EXTERNAL RESULT) Routine 04/25/2018 ABSTRACT HPV ([facility] EXTERNAL RESULT) Routine 04/25/2018 COLONOSCOPY - HIM SCAN Routine 01/07/2018 HEPATITIS C ANTIBODY Routine 06/11/2016 10:43 AM SALES UTILITY REPRESENTATIVE Routine general medical examination at a health care facility from Last 3 Months or Most Recently Relevant to Health Maintenance Results * Lipid panel reflex to direct LDL Fasting (02/24/2019 9:25 AM CDT) Cholesterol 148 <200 mg/dL 02/24/2019 1:20 PM CDT [facility] Triglycerides 64 <150 mg/dL 02/24/2019 1:21 PM CDT [facility] Comment:Fasting specimen HDL Cholesterol 70 >49 mg/dL 9 1:23 PM CDT [facility] LDL Cholesterol Calculated 65 <100 mg/dL 02/24/2019 1:23 PM CDT [facility] Comment:Desirable: <100 mg/d l Non HDL Cholesterol 78 <130 mg/dL 02/24/2019 1:23 PM CDT [facility] Blood specimen (specimen) 02/24/2019 9:25 AM CDT 02/24/2019 9:26 AM CDT Kwan De La Cruz MD LAB - BLOOD ORDERABLES Final R esult [facility] [address] [place] [address] * Basic metabolic panel (Ca, Cl, CO2, Creat, Gluc, K, Na, BUN) (02/24/2019 9:25 AM CDT) Sodium 141 133 - 144 mmol/L 02/24/2019 1:10 PM CDT [facility] Potassium 4.1 3.4 - 5.3 mmol/L 02/24/2019 1:10 PM CDT [facility] Chloride 107 94 - 109 mmol/L 02/24/2019 1:10 PM CDT [facility] Carbon Dioxide 30 20 - 32 mmol/L 02/24/2019 1:23 PM CDT [facility] Anion Gap 4 3 - 14 mmol/L 02/24/2019 1:23 PM CDT [facility] Glucose 95 70 - 99 mg/dL 02/24/2019 1:23 PM CDT [facility] Comment:Fasting specimen Urea Nitrogen 19 7 - 30 mg/dL 02/24/2019 1:23 PM CDT [facility] Creatinine 0.79 0.52 - 1.04 mg/dL 02/24/2019 1:23 PM CDT [facility] GFR Estimate 82 >60 mL/min/{1. 73_m2} 02/24/2019 1:23 PM CDT [facility] Comment: Non GFR Calc Starting 05/06/2018, serum creatinine based estimated GFR (eGFR) will be calculated using the Chronic Kidney Disease Epidemiology Collaboration (CKD-EPI) equation. GFR Estimate If Black >90 >60 mL/min/{1. 73_m2} 02/24/2019 1:23 PM CDT [facility] Comment: GFR Calc Starting 05/06/2018, serum creatinine based estimated GFR (eGFR) will be calculated using the Chronic Kidney Disease Epidemiology Collaboration (CKD-EPI) equation. Calcium 9.3 8.5 - 10.1 mg/dL 02/24/2019 1:23 PM CDT [facility] Blood specimen (specimen) 02/24/2019 9:25 AM CDT 02/24/2019 9:26 AM CDT us Kwan De La Cruz MD LAB - BLOOD ORDERABLES Final R esult Performing Organization Address City/[facility]/ZIP Co de Phone Number [facility] [address] [place] [address] * Mammogram - HIM Scan (07/18/2018) Anatomical Region Laterality Modality Other Narrative 07/18/2018 Elias Ramos Sent to Abstract Quality Initiatives Please abstract the following data from this visit with this patient into the appropriate field in Epic: Mammogram done on this date: 07/18/2018 (approximately), by this group: [facility], results were Neg. ?? us Patient Reported IMG MAMMOGRAPHY ORDERABLES Anitha l Result * ABSTRACT HPV-NO CHARGE (04/25/2018) HPV Abstract See Scanned Document [facility] 04/25/2018 Narrative [facility] - 04/25/2018 Kelsie Best LPN Please abstract the following data from this visit with this patient into the appropriate field in [facility]: Other Tests found in the patient's chart through Chart Review/Care Everywhere: Pap smear done by this group [facility] (Robert Obtano) on this date: 04-25-2018 HPV done at [facility] on 04-25-2018 SEE CARE EVERYWHERE [facility] us Provider Outside LAB - HIM EXTERNAL RESULT Final Result [facility] [address] [facility] [place] [address], [facility] [phone] * ABSTRACT PAP-NO CHARGE (04/25/2018) PAP-ABSTRACT See Scanned Document [facility] 04/25/2018 Narrative [facility] - 04/25/2018 Kelsie Best LPN Please abstract the following data from this visit with this patient into the appropriate field in Epic: Other Tests found in the patient's chart through Chart Review/Care Everywhere: Pap smear done by this group [facility] on this date: 04-25-2018 HPV done at [facility] on 04-25-2018 SEE CARE EVERYWHERE [facility] us Provider Outside LAB - HIM EXTERNAL RESULT Final Result [facility] [address] [phone] * Colonoscopy - [facility] Scan (01/07/2018) Narrative [facility] - 01/07/2018 Kelsie Best LPN Please abstract the following data from this visit with this patient into the appropriate field in Epic: Other Tests found in the patient's chart through Chart Review/Care Everywhere: Colonoscopy done on 01-07-2018 at [facility]-repeat in 5 years SEE CARE EVERYWHERE [facility] us Provider Outside PROCEDURES Final Result * Hepatitis C antibody (06/11/2016 10:43 AM SALES UTILITY REPRESENTATIVE) Pathologist [facility] Hepatitis C Antibody Nonreactive Assay performance characteristics have not been established for newborns, infants, and children NR [facility] Blood specimen (specimen) 06/11/2016 10:43 AM SALES UTILITY REPRESENTATIVE 06/11/2016 10:44 AM SALES UTILITY REPRESENTATIVE us Kwan De La Cruz MD LAB - BLOOD ORDERABLES Final R esult [facility] [address] [place] [address] from Last 3 Months or Most Recently Relevant to Health Maintenance Insurance [employer] MEDICARE ADVANTAGE [employer] MEDICARE ADVANTAGE Care Teams Heat And Vent Aircraft Mechanic Relationship Specialty Start Date End Date Kory Magallon MD [facility] [address] [address] PCP - General Family Medicine 11/14/23 Claudette Retana MD [address] [place] [address] Assigned Surgical Provider 11/17/22
--- OUTSIDE RECORDS SUMMARY | 2024-03-20 09:39 | XMS_ITS | Encounter Summary ---
Author Organization [facility] Address [address] [place] [address] Care Team Providers Care Restaurant Inspector Name Role Phone Kory Noland MD Primary Care Provider + Kwan De La Cruz MD Primary Care Provider [phone] Murali Hickey PA-C Primary Care Provider Kwan De La Cruz MD Primary Care Provider [phone] Kwan De La Cruz MD Unavailable [phone] Kwan De La Cruz MD Unavailable [phone] Brandie Jones BLAST [employer] SUPERVISOR ENERGY DERIVATIVES TRADER Unavailable Unavailable Kwan De La Cruz MD Unavailable [phone] Mechelle Mtz APRN ENERGY DERIVATIVES TRADER Unavailable + Claudette Retana MD Unavailable Miguelito Membreno MD Unavailable [phone] Dayna Guzman APRN CNM Unavailable Unava Adrian Navarrete DPCollin Unavailable [phone] Kwan De La Cruz MD Unavailable [phone] Mechelle Mtz APRN ENERGY DERIVATIVES TRADER Unavailable + Kwan De La Cruz MD Unavailable [phone] Daron Mtzsslara Rawls APRN ENERGY DERIVATIVES TRADER Unavailable + Mechelle Mtz APRN ENERGY DERIVATIVES TRADER Unavailable + Claudette Retana MD Unavailable Kory Magallon MD Primary Care Provider Reason for Visit * Reason Onset Date Comments Abstract 01/04/2012 Please Abstract Encounter Details Date Type Department Care Team (Late st Contact Info) Description 01/04/2012 Telephone [facility] [address] [place] [phone] [place] [address] [place] [address] Abstract (Please Abstract ) Social History Tobacco Use Types Packs/Day Years Used Date Smoking Tobacco: Never Alcohol Use Standard Drinks/Week Comments Yes 0 (1 standard drink = 0.6 oz pur e alcohol) occassional Comments No Sex and Gender Information Value Date Recorded Sex Assigned at Female 04/21/2021 9:03 AM SENIOR WIND ENERGY CONSULTANT Legal Sex Female 4:57 AM SENIOR WIND ENERGY CONSULTANT Gender Identity Female 04/21/2021 9:03 AM SENIOR WIND ENERGY CONSULTANT Sexual Orientation Not on file documented as of this encounter Miscellaneous Notes * Telephone Encounter - [place]iza - 01/04/2012 4:05 PM CDT Please abstract the following data from this visit with this patient into the appropriate field in [facility]: Mammogram done on this date: is due will schedule future appointment, by this group: [facility] location , results were normal. Pap smear done on this date: is due will schedule future appointment , by this group: [facility] location , results were normal. documented in this encounter Plan of Treatment Not on file documented as of this encounter Visit Diagnoses Not on filedocumented in this encounter Additional Health Concerns Infection Onset Date Last Indicated Resolved Time Rule Out COVID-19 11/26/2019 11/26/2019 11/27/2019 7:57 PM CDT documented as of this encounter Care Teams Restaurant Inspector Relationship Specialty [place] [address] [place] [address] PCP - General 07/25/08 02/28/16 [place] [address] [place] [address] PCP - General Family Practice 02/29/16 12/16/17 Murali Hickey PA-C [address] [place] [address] PCP - General Family Practice 12/17/17 02/16/18 [place] [address] [place] [address] PCP - General Family Practice 02/17/18 06/19/23 Kwan De La Cruz MD [address] [place] [address] PCP - Assigned PCP 03/04/16 07/22/18 Kory Magallon MD [facility] [address] [place] [address] PCP - General Family Medicine 11/14/23 Kwan De La Cruz MD [address] [place] [address] Assigned PCP 03/04/16 10/25/18 Brandie Jones APRN CNP Assigned PCP 10/26/18 03/14/19 Kawn De La Cruz MD [address] [place] [address] Assigned PCP 03/15/19 03/05/20 Mechelle Mtz APRN ENERGY DERIVATIVES TRADER [facility] [address] [place] [address] Assigned PCP 03/06/20 01/28/21 Claudette Retana MD [address] [place] [id number] Assigned Surgical Provider 03/11/2010/26/22 [place] [address] [facility] [place] [address] Assigned Musculoskeletal Provider 03/11/20 08/27/20 Dayna Guzman APRN CNM Assigned OBGYN Provider 03/11/20 10/22/20 Adrian Montesinos, DPM [address] [place] [address] Assigned Musculoskeletal Provider 08/28/20 10/22/20 Kwan De La Cruz MD [address] [place] [address] Assigned PCP 01/29/21 05/27/21 Mechelle Mtz APRN ENERGY DERIVATIVES TRADER [facility] [place] [address] Assigned PCP 05/28/21 07/29/21 Kwan De La Cruz MD [address] [place] [address] Assigned PCP 07/30/21 03/09/22 Mechelle Mtz APRN ENERGY DERIVATIVES TRADER [facility] [address], [place] [address] Assigned PCP 03/10/22 05/04/22 Mechelle Mtz APRN ENERGY DERIVATIVES TRADER [facility] [address], [place] [phone] Assigned PCP 07/14/22 01/25/23 Claudette Retana MD [address] [place] [address] Assigned Surgical Provider 11/17/22 documented as of this encounter
== END 2024-03-20 09:35 | disposition home or self-care (01) ==
PROVIDERS: PCP Family Medicine; Visit Provider Family Medicine
DX: E78.2 Mixed hyperlipidemia (principal); Z13.0 Encounter for screening for diseases of the blood and blood-forming organs and certain disorders involving the immune mechanism; Z13.228 Encounter for screening for other metabolic disorders; R76.8 Other specified abnormal immunological findings in serum
CPT/HCPCS: 80048; 80061; 84460; 85025; 85610; 85730

== ENCOUNTER 2024-07-14 10:45 | Outpatient (RCR) | payer MEDICARE, SELFPAY | END 2024-11-11 23:59 | disposition home or self-care (01) | PROVIDERS: PCP Family Medicine; Visit Provider Orthopaedic Surgery Orthopaedic Surgery of the Spine | DX: Z48.89 Encounter for other specified surgical aftercare (principal); Z51.89 Encounter for other specified aftercare | CPT/HCPCS: 97110; 97140; 97162 ==

== ENCOUNTER 2024-08-13 10:01 | Outpatient (CLI) | payer MEDICARE, SELFPAY ==
--- NOTE | 2024-08-13 10:15 | CRLHL7_ITS ---
For Patients: As a result of the Century Cures Act, medical imaging exams and procedure reports are released immediately into your electronic medical record. You may view this report before your referring provider. If you have questions, please contact your health care provider. BILATERAL SCREENING MAMMOGRAM WITH COMPUTER-AIDED DETECTION AND TOMOSYNTHESIS TECHNIQUE: CC and MLO views were obtained. These mammographic images have been obtained using full-field digital technique. These mammographic images were interpreted with the benefit of computer-aided detection. Breast Tomosynthesis was used in this interpretation. COMPARISON FILM: 06/03/23, 06/01/22, 03/03/21. FINDINGS: The breasts are almost entirely fatty. IMPRESSION: There is no radiographic evidence for malignancy. ASSESSMENT: BI-RADS Category 1: Negative RECOMMENDATION: Routine screening mammogram in 1 year. A lay language report of this examination will be provided to the patient. Kory Arambula M.D. Diagnostic Radiologist [email or web address] SP/Dictated by: Kory Arambula MD @ 08/18/2024 1:14:00 PM (Electronically Signed)
== END 2024-08-13 10:02 | disposition home or self-care (01) ==
LOC: MAMMO 10:01
PROVIDERS: PCP Family Medicine; Visit Provider Family Medicine
DX: Z12.31 Encounter for screening mammogram for malignant neoplasm of breast (principal)
CPT/HCPCS: 77063; 77067

== ENCOUNTER 2024-11-06 13:29 | Outpatient (CLI) | payer MEDICARE, SELFPAY ==
--- NOTE | 2024-11-06 13:45 | CRLHL7_ITS ---
For Patients: As a result of the Century Cures Act, medical imaging exams and procedure reports are released immediately into your electronic medical record. You may view this report before your referring provider. If you have questions, please contact your health care provider. Indication: Lumbar stenosis Technique: Multiplanar, multisequence, MRI of the lumbar spine, obtained without contrast. Comparison: MRI 03/12/2024 Findings: Interval postsurgical changes of transpedicular screw and nura fusion at L4-5 with interbody spacer and laminectomy. Preserved lumbar lordosis. Stable grade 1 anterolisthesis at L4-5. No acute osseous abnormality or suspicious bone marrow lesion. Minor Modic type 1 opposing endplate changes at L4-5. Conus medullaris terminates at L1-2. Right renal cysts. Unremarkable included SI joints. T11-T12: Mild disc bulge, mild facet arthropathy. No neural foraminal or spinal canal stenosis. T12-L1 through L2-L3: No neural foraminal or spinal canal stenosis. L3-L4: Mild disc bulge, mild facet arthropathy. Moderate bilateral neural foraminal stenosis, progressed. Mild thecal sac effacement secondary to dorsal epidural lipomatosis, new L4-L5: Postop changes, disc unroofing/bulge. Mild right, moderate left neural foraminal stenosis, improved on the right. Laminectomy decompression of the spinal canal. L5-S1: Left eccentric disc bulge, right asymmetric facet arthropathy. Mild-moderate left neural foraminal narrowing, stable. No right neuroforaminal or spinal canal stenosis. Impression: 1. Relative to the 03/12/2024 MRI, stable grade 1 anterolisthesis at L4-5 status post instrumented spinal fusion and laminectomy decompression. 2. At L3-L4, moderate bilateral neural foraminal stenosis, progressed, with new mild thecal sac effacement secondary to dorsal epidural lipomatosis. 3. At L4-L5, improved patency of the right neural foramen and spinal canal, with stable moderate left neural foraminal stenosis. 4. At L5-S1, stable mild-moderate left neural foraminal narrowing. Dictated by Joanne Rg MD @ 11/08/2024 6:20:33 PM (Electronically Signed)
--- OUTSIDE RECORDS SUMMARY | 2024-11-07 00:28 | XMS_ITS | Clinical Summary ---
Author Organization [facility] Address [address] [facility] , [address] [place] [address] Phone Care Team Providers Care Electron Gun Inspector Name Role Phone Her Jalen DURAND Notaylor Unavailable Conditions or Problems Problem Name Problem Code Onset Date Status Entry Date Provider Comment Standard Description Annotate Hx of stroke 950255618 (SNOMED CT) Active Mohan Altamirano MD History of cerebrovascular accident Migraine, common 51428079 (SNOMED CT) Active Mohan Altamirano MD Migraine without aura Muscle pain 08205035 (SNOMED CT) Active Mohan Altamirano MD Muscle pain Proximal muscle weakness 599460037 (SNOMED CT) Active Mohan Altamirano MD Proximal muscle weakness Medications Medication Instructions Start Date Stop Date Generic Name [facility] Provider FROVATRIPTAN SUCCINATE 2.5 MG TABS 1/2 tablet by mouth as directed : 1/2 to 1 tab at onset of headache (SPENCER); may repeat in 2 hour as needed; max 3 tabs per day; no more than 9 days use per month 3 frovatriptan [id number] Mohan Altamirano MD ASPIRIN 325 MG TABS Take 1 tablet by mouth once a day 6 aspirin [id number] Mohan Altamirano MD CELEBREX 50 MG CAPS couple x/wk for muscle pain celecoxib [id number] Mohan Altamirano MD rosuvastatin 5 mg sprinkle capsule rosuvastatin Mohan Altamirano MD ASPIRIN 325 MG TABS Take 1 tablet (325 mg) by mouth daily 6 aspirin [id number] QIEUSER QIEUSER Medications Administered No information available. Allergies, Adverse Reactions, Alerts No information available. Results Date Name Value Unit Range Flag Description Office Visit: Office Visit R aileen for visit haily pn in legs, stroke 2017fax MEDS REVIEW Done Documenta tion of current medications (procedure) Replaced Document: (P) QIANA MAHAJAN, COMPREHENSIVE METABOLIC PANEL, CREATINE KINAS ... ALDOLASE * U/L Aldolase [En zymatic activity/volume] in Serum or Plasma CRP * mg/dL C reactive pr otein [Mass/volume] in Serum or Plasma ESR 2 mm/h < OR = 30 N Erythrocyte sedimentation rate by Westergren method CPK * U/L Creatine michael se [Enzymatic activity/volume] in Serum or Plasma SGPT (ALT) * U/L Alanine aminotransferase [Enzymatic activity/volume] in Serum or Plasma SGOT (AST) * U/L Aspartate aminotransferase [Enzymatic activity/volume] in Serum or Plasma ALK PHOS * U/L Alkaline dayton sphatase [Enzymatic activity/volume] in Blood BILI TOTAL * mg/dL Bilirubin. total [Mass/volume] in Serum or Plasma A/G RATIO * Albumin/Georgette bulin [Mass Ratio] in Serum or Plasma GLOBULIN TOT * g/dL Globulin [Mass/volume] in Serum ALBUMIN * g/dL Albumin [Mass /volume] in Serum or Plasma PROTEIN, TOT * g/dL Protein [Mass/volume] in Serum or Plasma CA * mg/dL Calcium [Mass /volume] in Serum or Plasma CO2 TOTAL * mmol/L carbon diox april, serum, total CHLORIDE * mmol/L Chloride [Mo les/volume] in Serum or Plasma POTASSIUM * mmol/L Potassium [Moles/volume] in Serum or Plasma SODIUM * mmol/L Sodium [Moles /volume] in Serum or Plasma BUN/CREAT * Urea nitrogen/Creatinine [Mass Ratio] in Serum or Plasma [id number] * GE use only - for LinkLogic import when terms are not otherwise specified CREATININE * mg/dL Creatinine [Mass/volume] in Serum or Plasma BUN * mg/dL Urea nitrogen [Mass/volume] in Serum or Plasma GLUCOSE SER * mg/dL Glucose [ Mass/volume] in Serum or Plasma MAGNESIUM * mg/dL Magnesium [Moles/volume] in Serum or Plasma Internal Other: Authorizatio n - OBS [email or web address] Yes Authoriza tion: Release of Information - Authorize [facility] - Payment and Healthcare Operations ROIAUTHOTHER Yes Authoriz ation: Release of Information - Authorize Others/Insurance - Payment and Healthcare Operations HIECONSENT Yes Consent To Release information to the Health Information Exchange (HIE) [email or web address] Yes Authorizat ion: Authorization for [facility] to leave messages, voicemail, send text messages, send emails AUTHRELHCARE Yes Authoriz ation: Release/Retrieval of Information to/from Healthcare Facilities, Pharmacy Benefit Payers and Providers AUTHPRIVPRAC Yes Authoriz ation: Notice of privacy practices AUTHBENEFIT Yes Authoriza tion: Assignment of Benefits and Payment Agreement Plan of Care Type Date Detail Pending order Follow up with N eurologist or PAUL Pending order Follow up with N eurologist or PAUL Pending order Comp Metabolic P frances (14) Pending order Other Lab Pending order Aldolase Pending order Other Lab Pending order Aldolase Pending order C Reactive Prote in (CRP) Qn Pending order CK (Creatine Kin ase) Total Pending order ESR (Sedimentati on Rate) Procedures Code Procedure Name Date Entry Date [facility]-[id number] Documentation of current medicatio ns ORDERS C Reactive Protein (CRP) Qn ORDERS CK (Creatine Kinase) Total 2 ORDERS ESR (Sedimentation Rate) 202 08/20/12 ORDERS Comp Metabolic Panel (14) 20 10/08/12 Vital Signs Date Name Value Unit Description Heart Rate 63 /min pulse rate Immunizations No information available. Advance Directives No information available.
--- OUTSIDE RECORDS SUMMARY | 2024-11-07 00:30 | XMS_ITS | Clinical Summary ---
Author Organization [facility] Address [address] [place] [address] Care Team Providers Care Press Operator Meat Name Role Phone Colby Chakraborty Unavailable [phone] Vikas Barajas MD Unavailable Unavai Kory Chavez MD Primary Care Provider + Allergies No known active allergies Medications aspirin 325 mg tabletIndications: Acute CVA (cerebrovascular accident) (HC) Take 1 tablet by mouth once daily with a meal. 100 tablet 0 02/21/20 16 Active rosuvastatin (CRESTOR) 5 mg tablet Take 5 mg by mouth once daily. 08/24/19 24 Active pantoprazole (PROTONIX) 40 mg delayed-release tablet Take 40 mg by mouth once daily. 11/22/19 24 Active multivitamin (MULTIPLE VITAMIN ORAL) Take 1 Tablet by mouth once daily. Active TURMERIC ORAL Take 1,000 mg by mouth once daily. Active acetaminophen (TYLENOL EXTRA STRGTH) 500 mg tabletIndications: Spinal stenosis, lumbar region, with neurogenic claudication Take 2 Tablets (1,000 mg) by mouth every 6 hours. Max acetaminophen dose: 4000mg in 24 hrs. 04/08/20 24 Active sennosides-docusat e (SENOKOT S) (8.6-50 mg) tabletIndications: Spinal stenosis, lumbar region, with neurogenic claudication Take 1-4 Tablets by mouth two times daily. 15 Tablet 4 3:55 PM MANAGER BANQUET 04/08/20 24 Active ondansetron (ZOFRAN ODT) 4 mg disintegrating tabletIndications: PONV (postoperative nausea and vomiting) Place 1 Tablet (4 mg) on the tongue every 8 hours if needed for Nausea/Vomiting. 20 Tablet 4 7:25 AM MANAGER BANQUET 04/09/20 24 Active WalkerIndications: Spinal stenosis, lumbar region, with neurogenic claudication Rolling Walker with front wheels for home use for 3 months 1 Each 04/09/20 24 Active cholecalciferol, Vitamin D3, (Vitamin D-3) 5,000 unit tab tablet Take 5,000 units by mouth once daily. Active Active Problems Problem Noted Date Diagnosed Date Spondylolisthesis of lumbar region 04/07/2024 Spinal stenosis, lumbar rissa on, with neurogenic claudication 04/07/2024 S/P radiofrequency ablation operation for arrhyt hmia 09/26/2020 Chest pain, non-cardiac 09/26/2020 History of stroke 11/02/2016 Hyperlipidemia 11/02/2016 SVT (supraventricular tachycardia) 09/26/2016 Costal chondritis 05/16/2016 Acute CVA (cerebrovascular accident) 02/19/2016 Expressive aphasia 02/19/2016 Generalized weakness 02/19/2016 Chest pain 11/14/2010 GERD (gastroesophageal reflux disease) 1 Immunizations Immunization Administration Dates Next Due COVID-19 vaccine (Faction Skis 30mcg/0.3mL) PF, MDV 03/16/2021,08/13/2020,07/23/2020 Influenza RIV4 (Age [...] Given: Yes Alcohol Use Standard Drinks/Week Comments Not Currently 0 (1 standard drink = 0.6 oz pur e alcohol) rarely Social Connections Answer Date Recorded Do you often feel lonely or isolated from those around you? 0 04/08/2024 Financial Resource Strain Answer Date R ecorded Difficulty of Paying Living Expenses 3 04/08/2024 Difficulty of Paying Living Expenses Not on file 04/08/2024 Food Insecurity Answer Date Recorded Do you worry your food will run out before you are able to buy more? 1 04/08/2024 Transportation Needs Answer Date Record ed Does lack of transportation keep you from medica l appointments? 1 04/08/2024 Does lack of transportation keep you from work, meetings or getting things that you need? 1 04/08/2024 Housing Stability Answer Date Recorded What is your housing situation today? 1 04/08/2024 Interpersonal Safety Answer Date Record ed Are you being hit, kicked, p ushed or yelled at (see row info)? No 04/08/2024 Interpersonal Safety Abuse 12 - 18 Not on file 04/08/2024 Interpersonal Safety Ambulatory Vulnerability No t on file 04/08/2024 Utilities Answer Date Recorded Do you have trouble paying f or utilities (for example, heat, electricity, water, phone)? 1 04/08/2024 Comments No Sex and Gender Information Value Date Recorded Sex Assigned at Not on file Legal Sex Female 8:10 AM MANAGER BANQUET Gender Identity Not on file Sexual Orientation Not on file Obstetrics History Last Filed Vital Signs Vital Sign Reading Time Taken Comments Blood Pressure 127/84 06/08/2024 1:28 PM MANAGER BANQUET Pulse 80 06/08/2024 1:28 PM MANAGER BANQUET Temperature 36.3 C (97.3 F) 04/29/2024 12:31 PM MANAGER BANQUET Respiratory Rate 20 04/29/2024 12:31 PM MANAGER BANQUET Oxygen Saturation 99% 06/08/2024 1:28 PM MANAGER BANQUET Inhaled Oxygen Concentration - - Weight 118.4 kg (261 lb) 04/07/2024 11:45 AM MANAGER BANQUET Height 172.7 cm (5' 8) 04/07/2024 11:45 AM MANAGER BANQUET Body Mass Index 39.68 04/07/2024 11:45 AM MANAGER BANQUET Plan of Treatment Health Maintenance Due Date Last Done Comments Depression screening for age 12+ 1972 HIV for age 15-65 11/02/1975 Hepatitis C screening for age 18-79 1978 Pneumococcal series for age 50+ (1 of 2 - PCV) 11/02/1979 Colonoscopy through age 75 2005 Mammogram for age 45-75 2005 RSV vaccine for adults or (1 - Risk 60-74 years 1-dose series) 2020 Lipids for age 45-75 09/17/2021 09/17/2016, 06/21/2016, 02/20/2016 BMI (ht and wt on same day) for age 18+ 12/19/2022 12/19/2021, 09/26/2020, 11/12/2019, Additional history exists Influenza Vaccine (Season Ended) 2025 03/15/2021, 01/26/2020, 03/04/2019, Additional history exists Pap test for age 21-65 02/19/2026 02/19/2023, 2022 Tetanus booster 06/22/2029 06/22/2019, 06/30/2010 Zoster (shingles) series for age 50+ Completed 06/05/2018, 04/03/2018, 05/11/2016 Tdap Completed 06/22/2019, 06/30/2010 COVID-19 vaccine series Completed 03/20/20 24, 04/17/2023, 02/13/2022, Additional history exists Hepatitis B series for 19+ Aged Out N o longer eligible based on patient's age to complete this topic Medical Devices Implanted Type Area Blending Machine Operator Device Identifier Shelf Expiration Date Model / Serial / Lot Bone 1-4mm 60cc Medtronic Fine Canclls Freeze Dried - [id number] Implanted:Qty: 1 on 04/07/2024 by Joaquin Batista MD at [facility] N/A: Spine Medtronic Spine/Ortho [id number] 12/24/2027 [id number] / [id number] / [id number] Spacer Lmbr [id number] Capstone Tlif Titnm Coating - [id number] Implanted:Qty: 1 on 04/07/2024 by Joaquin Batista MD at [facility] N/A: Spine Medtronic Spine/Ortho 06/04/2024 [id number] / / [id number] Set Screw Lmbr Ant 5.5mm Solera Break Off - [id number] Implanted:Qty: 4 on 04/07/2024 by Joaquin Batista MD at [facility] N/A: Spine Medtronic Spine/Ortho [id number] / / Rafael Lmbr 40x5.5mm Solera 5.5/6 Cvd Titnm - [id number] Implanted:Qty: 2 on 04/07/2024 by Joaquin Batista MD at [facility] N/A: Spine Medtronic Spine/Ortho [id number] / / Screw Lmbr Post 6.5x40mm Solera 5.5/6 Va Cocr - [id number] Implanted:Qty: 1 on 04/07/2024 by Joaquin Batista MD at [facility] N/A: Spine Medtronic Spine/Ortho [id number] / / Screw Lmbr Post 6.5x45mm Solera 5.5/6 Va Cocr - [id number] Implanted:Qty: 1 on 04/07/2024 by Joaquin Batista MD at [facility] N/A: Spine Medtronic Spine/Ortho [id number] / / Screw Lmbr Post 6.5x50mm Solera 5.5/6 Va Cocr - [id number] Implanted:Qty: 2 on 04/07/2024 by Joaquin Batista MD at [facility] N/A: Spine Medtronic Spine/Ortho [id number] / / Procedures Procedure Name Priority Date/Time Associated Diagnosis Comments HPV HIGH RISK Routine 02/19/2023 12:20 PM CDT LIPID POCT [facility] ONLY Routine 09/17/2016 10:37 AM CDT Carotid artery disease, unspecified laterality from Last 3 Months or Most Recently Relevant to Health Maintenance Results * HPV HIGH RISK (02/19/2023 12:20 PM CDT) TYPE 16 Negative Negative 02/23/2023 7:05 AM CDT [facility] TYPE 18 Negative Negative 02/23/2023 7:05 AM CDT [facility] OTHER HIGH RISK TYPES Negative Negative 02/23/2023 7:05 AM CDT [facility] Other (Cervical) 02/19/2023 12:20 PM CDT 02/20/2023 4:28 PM CDT Narrative [facility] - 02/23/2023 7:05 AM CDT HPV types 16, 18, 31, 33, 35, 39, 45, 51, 52, 56, 58, 59, 66 and 68 DNA were undetectable or below the pre-set threshold. Methodology: Narinder Mirian 4800 HPV Test August Berta RICH MICROBIOLOGY Final Resu lt [facility] [address] [place] [address], * LIPID POCT [facility] ONLY (09/17/2016 10:37 AM CDT) LDL CHOLESTEROL 44 mg/dL [facility] Blood BLOOD SPECIMEN / Unknown 09/17/2016 10:37 AM CDT Marlin Sharpe NP CHEMISTRY Final Re sult [facility] [address] [place] [address] from Last 3 Months or Most Recently Relevant to Health Maintenance Insurance MEDICARE PART A HB ONLY BLUE CROSS MEDICARE ADVANTAGE [facility] Advance Directives * Full Code (Latest Code Status on File) Date Activated Date Inactivated Comments 04/14/2024 9:46 AM * Full Code Date Activated Date Inactivated Comments 04/08/2024 12:01 AM 04/09/2024 7:39 PM Question Answer Comments Code Status Discussion: Other * Full Code Date Activated Date Inactivated Comments 04/07/2024 12:10 PM 04/08/2024 12:01 AM Question Answer Comments Code Status Discussion: Unable to Assess Preferences, Provider to review later * Full Code Date Activated Date Inactivated Comments 09/27/2016 6:23 AM 09/27/2016 3:38 PM * Full Code Date Activated Date Inactivated Comments 02/20/2016 1:01 AM 02/21/2016 6:12 PM Question Answer Comments Code Status Discussion: Per Existing Order Care Teams Press Operator Meat Relationship Specialty Start Date End Date Kory Magallon MD [address] [place] [address] PCP - General Family Practice 04/13/24 Colby Chakraborty PA [address] [place] [address] Cardiology - EP Cardiovascular Disease 11/07/19 Vikas Barajas MD [address] [place] [address] Cardiology - EP Cardiovascular Disease 11/02/16
--- OUTSIDE RECORDS SUMMARY | 2024-11-07 00:30 | XMS_ITS | Encounter Summary ---
Author Organization [facility] Address [address] [place] [address] Care Team Providers Care Hourly Shift Manager Name Role Phone Kwan De La Cruz MD Primary Care Provider [phone] Kwan De La Cruz MD Unavailable [phone] Mechelle Mtz APRN LEAD JAVASCRIPT DEVELOPER Unavailable + Claudette Retana MD Unavailable Miguelito Membreno MD Unavailable [phone] Dayna Guzman SHRIMPING BOAT CAPTAIN CNM Unavailable Unava ilable Adrian Montesinos DPM Unavailable [phone] Kwan De La Cruz MD Unavailable [phone] Mechelle Mtz APRN LEAD JAVASCRIPT DEVELOPER Unavailable + Kwan De La Cruz MD Unavailable [phone] Mechelle Mtz APRN LEAD JAVASCRIPT DEVELOPER Unavailable + Mechelle Mzt APRN LEAD JAVASCRIPT DEVELOPER Unavailable + Claudette Retana MD Unavailable Kory Magallon MD Primary Care Provider [phone] Claudette Retana MD Unavailable Encounter Details Date Type Department Care Team (Late st Contact Info) Description 01/26/2020 MyC Medical Advice [address] [address] Ginette Padilla RN Social History Tobacco Use Types Packs/Day Years Used Date Smoking Tobacco: Never Smokeless Tobacco: Never Alcohol Use Standard Drinks/Week Comments Yes 0 (1 standard drink = 0.6 oz pur e alcohol) occassional PHQ-2 Answer Date Recorded PHQ-2 Score 0 09/18/2019 Comments No Sex and Gender Information Value Date Recorded Sex Assigned at Female 04/21/2021 9:03 AM LOCK ASSEMBLER Legal Sex Female 4:57 AM LOCK ASSEMBLER Gender Identity Female 04/21/2021 9:03 AM LOCK ASSEMBLER Sexual Orientation Not on file COVID-19 [...] on filedocumented in this encounter Care Teams Hourly Shift Manager Relationship Specialty Start Date End Date Kwan De La Cruz MD PCP - General Family Practice 02/17/18 06/19/23 Kory Magallon MD [facility] [address] [place] [address] PCP - General Family Medicine 11/14/23 Kwan De La Cruz MD [facility] [place] [address] Assigned PCP 03/15/19 03/05/20 Mechelle Mtz APRN LEAD JAVASCRIPT DEVELOPER [facility] [address] [place] [phone] Assigned PCP 03/06/20 01/28/21 Claudette Retana MD [address] [place] [address] [id number] Assigned Surgical Provider 03/11/2010/26/22 [place] [address] [place], [place] [address] Assigned Musculoskeletal Provider 03/11/20 08/27/20 Dayna Guzman APRN CN Assigned OBGYN Provider 03/11/20 10/22/20 Adrian Montesinos DPCollin [address] [place] [address] [id number] Assigned Musculoskeletal Provider 08/28/20 10/22/20 Kwan De La Cruz MD [address] [place] [address] Assigned PCP 01/29/21 05/27/21 Mechelle Mtz APRN LEAD JAVASCRIPT DEVELOPER [facility] [place] [phone] Assigned PCP 05/28/21 07/29/21 Kwan De La Cruz MD [address] [place] [address] Assigned PCP 07/30/21 03/09/22 Mechelle Mtz APRN LEAD JAVASCRIPT DEVELOPER [facility] [address] [place] [phone] Assigned PCP 03/10/22 05/04/22 Mechelle Mtz APRN LEAD JAVASCRIPT DEVELOPER [facility] [place] [facility] [address], [place] [address] Assigned PCP 07/14/22 01/25/23 Claudette Retana MD [address] [place] [address] [id number] Assigned Surgical Provider 11/17/22 Claudette Retana MD [address] [place] [address] [address] [place] [address] Assigned Dermatology Provider 08/09/24 documented as of this encounter
--- OUTSIDE RECORDS SUMMARY | 2024-11-07 00:30 | XMS_ITS | Encounter Summary ---
Author Organization [facility] Address [address] [place] [address] Care Team Providers Care Forest Engineer Name Role Phone Kwan De La Cruz MD Primary Care Provider [phone] Claudette Retana MD Unavailable Kwan De La Cruz MD Unavailable [phone] Mechelle Mtz CASE COORDINATOR HOSPITAL SCIENTIST Unavailable + Kwan De La Cruz MD Unavailable [phone] Mechelle Mtz CASE COORDINATOR HOSPITAL SCIENTIST Unavailable + Mechelle Mtz APRN HOSPITAL SCIENTIST Unavailable + Claudette Retana MD Unavailable Kory Magallon MD Primary Care Provider [phone] Claudette Retana MD Unavailable Encounter Details Date Type Department Care Team (Late st Contact Info) Description 05/01/2021 [facility] [address] [address] Carmen Zuniga Social History Tobacco Use Types Packs/Day Years Used Date Smoking Tobacco: Never Smokeless Tobacco: Never Alcohol Use Standard Drinks/Week Comments Yes 0 (1 standard drink = 0.6 oz pur e alcohol) occassional PHQ-2 Answer Date Recorded PHQ-2 Score 0 04/28/2021 Comments No Sex and Gender Information Value Date Recorded Sex Assigned at Female 04/21/2021 9:03 AM ASSISTANT CASE MANAGER Legal Sex Female 4:57 AM ASSISTANT CASE MANAGER Gender Identity Female 04/21/2021 9:03 AM ASSISTANT CASE MANAGER Sexual Orientation Not on file COVID-19 Exposure Response Date Recorded In the last month, have you been in contact with someone who was confirmed or suspected to have Coronavirus / COVID-19? No / Unsure 04/28/2021 1:37 PM ASSISTANT CASE MANAGER documented as of this encounter Plan of Treatment Not on file documented as of this encounter Visit Diagnoses Not on filedocumented in this encounter Care Teams Forest Engineer Relationship Specialty Start Date End Date Kwan De La Cruz MD PCP - General Family Practice 02/17/18 06/19/23 Kory Magallon MD [facility] [address] [place] [address] PCP - General Family Medicine 11/14/23 Claudette Retana MD [address] [place] [address] [address] [place] [address] Assigned Surgical Provider 03/11/20 10/26/22 Kwan De La Cruz MD [address] [place] [address] Assigned PCP 01/29/21 05/27/21 Mechelle Mtz APRN HOSPITAL SCIENTIST [facility] [address], [place] [address] Assigned PCP 05/28/21 07/29/21 Kwan De La Cruz MD [address] [place] [address] Assigned PCP 07/30/21 03/09/22 Mechelle Mtz APRN HOSPITAL SCIENTIST [facility] [place] [facility] [address] [place] [phone] Assigned PCP 03/10/22 05/04/22 Mechelle Mtz APRN HOSPITAL SCIENTIST [facility] [address], [place] [phone] Assigned PCP 07/14/22 01/25/23 Claudette Retana MD [address] [place] [address] Assigned Surgical Provider 11/17/22 08/08/24 Claudette Retana MD [address] [place] [address] [phone] Assigned Dermatology Provider 08/09/24 documented as of this encounter
--- OUTSIDE RECORDS SUMMARY | 2024-11-07 00:30 | XMS_ITS | Encounter Summary ---
Author Organization [place] Address [address] [place] [address] Care Team Providers Care Rn Eligibility Name Role Phone Kwan De La Cruz MD Primary Care Provider [phone] Claudette Retana MD Unavailable Kwan De La Cruz MD Unavailable [phone] Mechelle Mtz WELDING EQUIPMENT SALES REPRESENTATIVE PALLET STONE INSERTER Unavailable + Kwan De La Cruz MD Unavailable [phone] Mechelle Mtz WELDING EQUIPMENT SALES REPRESENTATIVE PALLET STONE INSERTER Unavailable + Mechelle Mtz APRN PALLET STONE INSERTER Unavailable + Claudette Retana MD Unavailable Kory Magallon MD Primary Care Provider Claudette Retana MD Unavailable Encounter Details Date Type Department Care Team (Late st Contact Info) Description 05/01/2021 [facility] Medical Advice [address] [address] Ginette Padilla RN Social History Tobacco Use Types Packs/Day Years Used Date Smoking Tobacco: Never Smokeless Tobacco: Never Alcohol Use Standard Drinks/Week Comments Yes 0 (1 standard drink = 0.6 oz pur e alcohol) occassional PHQ-2 Answer Date Recorded PHQ-2 Score 0 04/28/2021 Comments No Sex and Gender Information Value Date Recorded Sex Assigned at Female 04/21/2021 9:03 AM LANDSCAPE ACCOUNT MANAGER Legal Sex Female 4:57 AM LANDSCAPE ACCOUNT MANAGER Gender Identity Female 04/21/2021 9:03 AM LANDSCAPE ACCOUNT MANAGER Sexual Orientation Not on file COVID-19 Exposure Response Date Recorded In the last month, have you been in contact with someone who was confirmed or suspected to have Coronavirus / COVID-19? No / Unsure 04/28/2021 1:37 PM LANDSCAPE ACCOUNT MANAGER documented as of this encounter Plan of Treatment Not on file documented as of this encounter Visit Diagnoses Not on filedocumented in this encounter Care Teams Rn Eligibility Relationship Specialty Start Date End Date Kwan De La Cruz MD PCP - General Family Practice 02/17/18 06/19/23 Kory Magallon MD [facility] [address] [place] [address] PCP - General Family Medicine 11/14/23 Claudette Retana MD [address] [place] [address] [address] [place] [address] Assigned Surgical Provider 03/11/20 10/26/22 Kwan De La Cruz MD [address] [place] [address] Assigned PCP 01/29/21 05/27/21 Mechelle Mtz APRN PALLET STONE INSERTER [facility] [place] [facility] [address], [place] [address] Assigned PCP 05/28/21 07/29/21 Kwan De La Cruz MD [address] [place] [address] Assigned PCP 07/30/21 03/09/22 Mechelle Mtz APRN PALLET STONE INSERTER [facility] [place] [facility] [address] [place] [phone] Assigned PCP 03/10/22 05/04/22 Mechelle Mtz APRN PALLET STONE INSERTER [facility] [place] [address], [place] [phone] Assigned PCP 07/14/22 01/25/23 Claudette Retana MD [address] [place] [address] Assigned Surgical Provider 11/17/22 08/08/24 Claudette Retana MD [address] [place] [address] Assigned Dermatology Provider 08/09/24 documented as of this encounter
--- OUTSIDE RECORDS SUMMARY | 2024-11-07 00:30 | XMS_ITS | Data Portability ---
Author Organization [facility] ARC WELDING MACHINE OPERATOR, [id number] Address [address] [facility] [address] [place] [address] Assessment No assessment recorded. Plan of Treatment Reminders Order Date Submit Date Provider Last Modified By Organization Details Last Modified Time Details Appointments None recorded. Lab None recorded. Referral None recorded. Procedures None recorded. Surgeries None recorded. Imaging US, pelvis 2021 022 JARAD Not available 12:21:26 Medication Orders fluocinolon e 0.025 % topical ointment 2021 022 [id number] [employer], [address] [facility] [address] [place], [address], 22:58:08 Estrace 0.01% (0.1 mg/gram) vaginal cream 2020 021 JAR[id number] [employer], [address] [facility] [address] [place], [address], 22:56:57 Patient TargetsNo targets recorded. Patient Instructions Encounter Date Encounter Id Patient Instructions Last Modified By Organization Details Last Modified Time 08/08/2020 [id number] Due for Pap with HPV cotesting in 04/2023. Reviewed her [place] chart. I do not find any record of a 2019 mammogram. She will schedule one this year. I don't know if vaginal estrogen will decrease her UTI frequency but I willing to write the Rx. Certain MACHINE OPERATOR PICKER cancers are genetic. There are typically several [...] pancreatic cancer. [email or web address] Not available 08/08/2020 22:54:51 08/15/[id number] Reviewed and updated her surgical and family history. No breast, colon, ovarian, uterine, prostate or pancreatic cancer. Her maternal aunt was diagnosed with Fallopian tube cancer in her 60's. No FH of HTN, SD or CVA. After the visit was done, she had 1 more item to discuss. She is still bothered by intermittent LLQ pain. It feels like menstrual cramping. It lasts a few minutes. Nothing triggers the pain. No change in bowel or bladder function. Will schedule pelvic US to confirm normal adnexa. [email or web address] Not available 08/15/2021 23:03:43 Reason for Referral None Reported. Results Created Date Observation Date Name Description Value Unit Range Abnormal Flag Note LastModifiedBy Organization Detail LastModifiedTime 03/03/20 21 03/03/2021 MAMMO , scree rob, bilat eral No observ ation record ed. [facility] [address], [place], [address], 03/03/2021 16:43:24 09/15/19 22 09/14/2021 , danny zafar No observ ation record ed. JARAD [address], [facility], [place], [address], 09/26/2021 19:39:32 Result Notes None recorded. Problems Name Problem SNOMED Code Status Onset Date Resolution Date Notes Provider Name and Address Organization Details Recorded Time Hypothyroidism 54069790 Active 01/2011 Not Available [facility] 0 03:57:50 Notes:*Problem Name: Cerebra l vascular accident *Problem Status: active Problem Notes None recorded. Procedures Surgical History Date Name Laterality Status Provider Name and Address Organization Details Recorded Time 03/03/20 21 Date of Last Mammogram completed Madelyn Mary [facility] ARC WELDING MACHINE OPERATOR 03/03/2021 16:43:45 04/25/20 18 Date of Last Pap Smear completed Chelsea Perkl [facility] ARC WELDING MACHINE OPERATOR 08/14/2021 13:15:18 01/08/20 18 Date of Last Colonoscopy completed Chelsea Perkl [facility] ARC WELDING MACHINE OPERATOR 08/14/2021 13:16:03 destruction [place] [address] [facility] [address], [place], [address] ARC WELDING MACHINE OPERATOR 08/08/2020 22:24:59 excision of basal [place] [address] [facility] [address], [place], [address] ARC WELDING MACHINE OPERATOR 08/08/2020 16:17:12 tonsillectomy and adenoidectomy completed Yumiko Hitchcock [facility] ARC WELDING MACHINE OPERATOR 08/08/2020 16:23:26 Imaging Results None recorded. Procedure Notes None recorded. Medical Equipment None Reported. Allergies Allergen ID Allergen Name Allergen Category Reaction Reaction Severity Criticality Documentation Date Start Date Code Code System Note Provider Name and Address Organization Details Recorded Time 55888 Lipitor medicatio n Not available Not available Not available 12/23/2019 75830 5 RxNorm *Note : not an aller gy but cause d a lot of muscl e barbara ess Not Available [facility] 0 03:45:07 Medications Name Sig Start Date [...] Available Not Available Vitals Date Recorded Body height Body mass index (BMI) Body weight Systolic blood pressure Diastolic blood pressure Provider Name and Address Organization Details Last Updated DateTime 08/08/2020 168.91 cm 41 kg/m2 378919.3 9 g 126 mm[Hg] 84 mm[Hg] Yumiko Hitchcock [facility] ARC WELDING MACHINE OPERATOR 1 16:32:51 Date Recorded Body weight Body mass index (BMI) Body height Systolic blood pressure Diastolic blood pressure Provider Name and Address Organization Details Last Updated DateTime 08/15/2021 857810.3 9 g 42 kg/m2 168.91 cm 122 mm[Hg] 78 mm[Hg] Chelsea [place] [facility] AR[facility] WELDING MACHINE OPERATOR 2 15:24:05 Social History Question Answer Notes LastModified by Organizat ion Details LastModified Time Tobacco Smoking Status Never Smoker Eliza Thomson null, [place] - [facility] ARC WELDING MACHINE OPERATOR 08/04/2020 17:01:59 Do You Have An Advance Directive? No Information not available 08/08/2020 What Is Your Level Of Caffeine Consumption? Occasional Information not available 08/08/2020 How Much Tobacco Do You Chew? None Information not available 08/08/2020 History Of Domestic Violence No [email or web address] Information no t available 12/23/2019 What Is Your Relationship Status? Information not available 08/15/2021 Do You Use Your Seat Belt Or Car Seat Routinely? Yes Information not available 08/15/2021 Sex: Unknown Functional Status Question Answer Note LastModified by Organizat ion Details LastModified Time What is your level of alcohol consumption? 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 None walks in the summer Information not available 08/15/2021 Mental Status None recorded. Family History Relationship Description Onset Age of this Age Resolved Age Notes LastModified by Organization Details LastModified Time Brother Family history of diabetes mellitus [email or web address] Not available 2021 15:04:49 Mother Family history of diabetes mellitus [email or web address] Not available 2021 15:04:49 Mother Disorder of thyroid gland [email or web address] Not available 2020 16:16:25 Father Multiple myeloma 77 [email or web address] Not available 2021 15:04:49 Maternal Aunt Primary malignant neoplasm of fallopian tube in her 60's [email or web address] Not available 08/15/2021 15:04:49 Medical History Condition Response Neurology- Stroke/TIA Y [...] Total 3 Immunizations Vaccine Type Date Status Note Provider Nam e and Address Organization Details Recorded Time Tdap 0 completed Not Available [facility] 12/23/2019 09:30:37 Influenza, split virus, trivalent, preservative 1 completed Not Available [employer] 08/15/2021 15:04:49 Influenza, split virus, trivalent, preservative 2 completed Not Available [employer] 08/15/2021 15:04:49 Influenza, split virus, trivalent, preservative 3 completed Not Available [employer] 08/15/2021 15:04:49 Influenza, split virus, quadrivalent, PF 6 completed Not Available [employer] 08/15/2021 15:04:49 Influenza, split virus, quadrivalent, PF 4 completed Not Available [employer] 08/15/2021 15:04:49 unknown 0 completed Not Available [employer] 08/15/2021 15:04:50 Past Encounters Encounter ID Performer Location Encounter Start Date Encounter Closed Date Diagnosis/Indication Diagnosis SNOMED-CT Code Diagnosis ICD10 Code Diagnosis Note [id number] CARMEN YEN MD [id number] [address] [facility] ,[address] [place] [address] 08/08/2020 16:20:30 08/08/2020 18:34:01 Gynecologic examination 55959457 Z01.419 Family his tory of malignant neoplasm 513586965 Z80.9 Postmenopa usal maternal aunt recently dx with tubal cancer Atrophic vulva 331402704 N90.5 [id number] CARMEN YEN MD [id number] [address] [facility] ,[address] [place] [address] 08/15/2021 15:04:48 08/16/2021 11:15:40 Gynecologic examination 44148007 Z01.419 Screening for malignant neoplasm of breast 994113548 Z12.39 Up to date; last mammogram 02/2021. Screening for malignant neoplasm of colon 203822129 Z12.11 Due next year. Screening for malignant neoplasm of cervix 883477200 Z12.4 Due for Pap with HPV cotesting in 04/2023. Vulval irritation 993922 003 N90.89 Her vulvar irritation and pruritus are not from atrophy. Cancer is also very unlikely. It does not look like she has lichen sclerosus. The findings are bilaterall y symmetrica l suggesting a contact or allergic dermatitis . Will try a medium potency topical corticoste roid for 1 month. If her symptoms don't improve then her options are trying a higher potency ointment, vulvar biopsy or seeing a dermatolog ist. She does have a dermatolog ist but than physician has never looked at her vulva. [id number] CARMEN YEN MD [id number] [facility] [address] [facility] ,[address] [place] [address] 09/14/2021 13:53:58 09/14/2021 14:14:45 Pain in pelvis 39722103 R10.2 Health Concerns Section Related Observation LastModified by Organization Detai ls LastModified Time None Recorded Concern Status LastModified by Organization Details LastModified Time None Recorded Advance Directives Directive N: Payers Insurance Date Sequence Insurance Name Policy Number Policy Elkins Covered Member ID Elkins Member ID Guarantor Name 09/25/2021 1 [place] [id number] Emily Caldera [id number] Emily Caldera 08/28/2021 1 [place] [id number] Wicho Caldera [id number] Emily Caldera Notes Date Note Type Note Provider Name and Address Organization Details Recorded Time 08/08/2020 text/html This woman is a 59 year old G 3 P 3003 who presents for her annual exam. Roomed by [facility]. She declines coremaker helper for her breast and/or pelvic exam. Her primary health care aide was not documented today. She does not have an advanced directive. She does not want STI screening. Depression risk assessment: PHQ9 SCORE: 0 Tobacco use: no Her menses are no longer present. She was told to use vaginal estrogen to decrease her bladder infections. She has 1-2/year. Since her last MACHINE OPERATOR PICKER annual exam 1 year ago she had [...] have not had cancer. She moved to [place], [place] in February. It is near [place]. She lives two houses away from her daughter who gave to 31 week identical twin girls in May. They recently came home after their NICU stay. Her other granddaughter spends half the year in [place]; her son [place] 50% [place] [address] [facility],[address], [place], [address], [facility] - [facility] ARC WELDING MACHINE OPERATOR 08/08/2020 22:57:34 08/15/2021 text/html This woman is a 60 year old who presents for her annual exam.Roomed by Chelsea. She declines coremaker helper for her breast and/or pelvic exam. Her primary health care aide is Kory Magallon MD ([facility]).She does not have an advanced directive. She does not want STI screening.Depressio n risk assessment: PHQ-9 SCORE: 3Tobacco use: no Her menses are no longer present. Since her last MACHINE OPERATOR PICKER annual exam 1 year ago her vulvar symptoms are worse. She scratches frequently. Her vulvar skin feels dry with little slits/cuts. Last year I prescribed vaginal estrogen cream which she really hasn't been using. (I reviewed my note from last year. I prescribed the cream because she was told it would decrease her bladder infections).She stopped taking her statin 6 months ago in the hopes it would decrease her leg pain. The pain has not decreased. The statin was started because she had a CVA in 2016. Her cholesterol has never been high.She has three granddaughters. Oldest lives out of state. The twins live very close to her in [place]; she watches them 5 days/week. Hr 4th grandchild [place] [address] [facility],[address], [place], [address], [place] - [facility] ARC WELDING MACHINE OPERATOR 08/15/2021 23:04:31 OBGyn Episode Ob Episode Information Episode Created Date Number of Fetuses Patient Bloodtype Patient rh Status Prepregnancy Weight lbs Domestic Partner Domestic Partner Phone Father Name Web Press Operator Helper Offset Status 08/05/19 21 1 CLOSED Fetus Data First Name Last Name Admitted to NICU Weight (g) Sex Living Outcome Pediatric Complications Fetus ID Race Codes Race Delivery Type 4139.02 7 M Full Term [id number] Eliel Calculation Initial Eliel Date Initial Exam [...] Domestic Partner Domestic Partner Phone Father Name Web Press Operator Helper Offset Status 08/05/19 21 1 CLOSED Fetus Data First Name Last Name Admitted to NICU Weight (g) Sex Living Outcome Pediatric Complications Fetus ID Race Codes Race Delivery Type 4337.24 6704 M Full Term 08146 Eliel Calculation Initial Eliel Date Initial Exam [...] Domestic Partner Domestic Partner Phone Father Name Web Press Operator Helper Offset Status 08/05/19 21 1 CLOSED Fetus Data First Name Last Name Admitted to NICU Weight (g) Sex Living Outcome Pediatric Complications Fetus ID Race Codes Race Delivery Type 3572.03 7 F Full Term [id number] Eliel Calculation Initial Eliel Date Initial Exam [...]
--- OUTSIDE RECORDS SUMMARY | 2024-11-07 00:30 | XMS_ITS | Clinical Summary ---
Author Organization [facility] Address [address] [place] [address] Care Team Providers Care Retinal Angiographer Name Role Phone Kory Magallon MD Primary Care Provider Claudette Retana MD Unavailable Allergies Active Allergy [...] given to patient to review. Kelsie Best DIRECTOR INDUSTRIAL NURSING Immunizations Immunization Administration Dates Next Due Influenza Vaccine 18-64 (Flublok) 03/15/2021,12/2019,03/04/2019 Influenza Vaccine >6 months,quad, PF 02/20/2018, 03/30/2017,03/15/2016 TDAP (Adacel,Boostrix) 06/22/2019 TDAP Vaccine (Adacel) 06/30/2010 Zoster recombinant adjuvanted (Shingrix) 019,04/03/2018 Zoster vaccine, live 05/11/2016 Family History [...] Sex Assigned at Female 04/21/2021 9:03 AM INSPECTOR AND CLERK Legal Sex Female 4:57 AM INSPECTOR AND CLERK Gender Identity Female 04/21/2021 9:03 AM INSPECTOR AND CLERK Sexual Orientation Not on file Last Filed Vital Signs Vital Sign Reading Time Taken Comments Blood Pressure 116/80 05/21/2020 9:28 AM INSPECTOR AND CLERK Pulse 51 05/21/2020 9:28 AM INSPECTOR AND CLERK Temperature 36.1 C (97 F) 05/21/2020 9:28 AM INSPECTOR AND CLERK Respiratory Rate 16 05/21/2020 9:28 AM INSPECTOR AND CLERK Oxygen Saturation 96% 05/21/2020 9:28 AM INSPECTOR AND CLERK Inhaled Oxygen Concentration - - Weight 112.3 kg (247 lb 9.6 oz) 05/21/2020 9:28 AM INSPECTOR AND CLERK Height 171.5 cm (5' 7.5) 03/24/2019 10 :42 AM INSPECTOR AND CLERK Body Mass Index 38.21 03/24/2019 10:42 AM INSPECTOR AND CLERK Plan of Treatment Health Maintenance Due Date Last Done Comments ANNUAL REVIEW OF HM ORDERS 1960 CT COLONOGRAPHY 1960 FIT 1960 FLEX SIG 1960 sDNA (Cologuard) 1960 HIV SCREENING 11/02/1975 PNEUMOCOCCAL VACCINE 50+ YEARS (1 of 1 - PCV) 2010 LIPID 02/25/2020 02/24/2019, 08/2017, 06/11/2016 MAMMO SCREENING 07/29/2020 07/29/2018, 05/2018, 07/18/2018, Additional history exists RSV VACCINE (1 - Risk 60-74 years 1-dose series) 2020 ADVANCE CARE PLANNING 03/15/2021 03/15/2016 DIABETES SCREENING 02/24/2022 02/24/2019, 1 , 06/11/2016 MEDICARE ANNUAL WELLNESS VISIT 08/15/2022 08/15/2021, 08/08/2020, 06/22/2019, Additional history exists COLONOSCOPY 01/07/2023 01/07/2018, 12/19, 2010 COLORECTAL CANCER SCREENING 01/07/2023 COVID-19 VACCINE ( season) 2024 04/17/2023, 02/13/2022, 11/07/2021, Additional history exists PHQ-2 (once per calendar year) 2024 11/14/2023, 11/09/2022, 04/28/2021, Additional history exists INFLUENZA VACCINE (Season Ended) 2025 02/19/2023, 03/07/2022, 03/15/2021, Additional history exists HPV TEST 02/20/2028 02/19/2023, 1211/2017, 04/01/2013 PAP 02/20/2028 02/19/2023, 12/0 11/2017, 04/25/2018, Additional history exists DTAP/TDAP/TD VACCINE (3 - Td or Tdap) 06/22/2029 06/22/2019, 06/30/2010 HEPATITIS C SCREENING Completed 06/11/2016 ZOSTER VACCINE Completed 06/05/2018, 03/20, 05/11/2016 HPV VACCINE Aged Out No longer eligi ble based on patient's age to complete this topic MENINGITIS VACCINE Aged Out No longer eligible based on [...] HEPATITIS C ANTIBODY Routine 06/11/2016 10:43 AM INSPECTOR AND CLERK Routine general medical examination at a health care facility from Last 3 Months or Most Recently Relevant to Health Maintenance Results * Lipid panel reflex to direct LDL Fasting (02/24/2019 9:25 AM CDT) Cholesterol 148 <200 mg/dL 02/24/2019 1:20 PM CDT [facility] Triglycerides 64 <150 mg/dL 02/24/2019 1:21 PM CDT [facility] Comment:Fasting specimen HDL Cholesterol 70 >49 mg/dL 9 1:23 PM CDT [facility] LDL Cholesterol Calculated 65 <100 mg/dL 02/24/2019 1:23 PM CDT [facility] Comment:Desirable: <100 mg/d l Non HDL Cholesterol 78 <130 mg/dL 02/24/2019 1:23 PM CDT [facility] Blood specimen (specimen) 02/24/2019 9:25 AM CDT 02/24/2019 9:26 AM CDT Kwan De La Cruz MD LAB - BLOOD ORDERABLES Final R esult [facility] [address] [place] [address] * Basic metabolic panel (Ca, Cl, CO2, Creat, Gluc, K, Na, BUN) (02/24/2019 9:25 AM CDT) Sodium 141 133 - 144 mmol/L 02/24/2019 1:10 PM CDT [facility] Potassium 4.1 3.4 - 5.3 mmol/L 02/24/2019 1:10 PM CDT [facility] Chloride 107 94 - 109 mmol/L 02/24/2019 1:10 PM CDT [facility] Carbon Dioxide 30 20 - 32 mmol/L 02/24/2019 1:23 PM CDT [facility] Anion Gap 4 3 - 14 mmol/L 02/24/2019 1:23 PM CDT [facility] Glucose 95 70 - 99 mg/dL 02/24/2019 1:23 PM CDT [facility] Comment:Fasting specimen Urea Nitrogen 19 7 - 30 mg/dL 02/24/2019 1:23 PM T [facility] Creatinine 0.79 0.52 - 1.04 mg/dL 02/24/2019 1:23 PM CDT [facility] GFR Estimate 82 >60 mL/min/{1. 73_m2} 02/24/2019 1:23 PM CDT [facility] Comment: Non GFR Calc Starting 05/06/2018, serum creatinine based estimated GFR (eGFR) will be calculated using the Chronic Kidney Disease Epidemiology Collaboration (CKD-EPI) equation. GFR Estimate If Black >90 >60 mL/min/{1. 73_m2} 02/24/2019 1:23 PM CDT [facility] Comment: GFR Calc Starting 05/06/2018, serum creatinine based estimated GFR (eGFR) will be calculated using the Chronic Kidney Disease Epidemiology Collaboration (CKD-EPI) equation. Calcium 9.3 8.5 - 10.1 mg/dL 02/24/2019 1:23 PM CDT [facility] Blood specimen (specimen) 02/24/2019 9:25 AM CDT 02/24/2019 9:26 AM CDT us Kwan De La Cruz MD LAB - BLOOD ORDERABLES Final R esult Performing Organization Address [facility]/ZIP Co de Phone Number [facility] [address] [place] [address] * Mammogram - HIM Scan (07/18/2018) Anatomical Region Laterality Modality Other Narrative 07/18/2018 Elias Ramos Sent to Abstract Quality Initiatives Please abstract the following data from this visit with this patient into the appropriate field in Epic: Mammogram done on this date: 07/18/2018 (approximately), by this group: [facility], results were Neg. us Patient Reported IMG MAMMOGRAPHY ORDERABLES Anitha l Result * ABSTRACT HPV-NO CHARGE (04/25/2018) HPV Abstract See Scanned Document [facility] 04/25/2018 Narrative [facility] - 04/25/2018 Kelsie Best LPN Please abstract the following data from this visit with this patient into the appropriate field in [facility]: Other Tests found in the patient's chart through Chart Review/Care Everywhere: Pap smear done by this group [facility] (Robert Krueger) on this date: 04-25-2018 HPV done at [facility] on 04-25-2018 SEE CARE EVERYWHERE [facility] us Provider Outside LAB - HIM EXTERNAL RESULT Final Result Performing Organization Address City/[facility]/ZIP Co de Phone Number [facility] [address] [address], [facility] [phone] * ABSTRACT PAP-NO CHARGE (04/25/2018) PAP-ABSTRACT See Scanned Document [facility] 04/25/2018 Narrative [facility] - 04/25/2018 Kelsie Best LPN Please abstract the following data from this visit with this patient into the appropriate field in Epic: Other Tests found in the patient's chart through Chart Review/Care Everywhere: Pap smear done by this group [facility] ([facility]) on this date: 04-25-2018 HPV done at [facility] on 04-25-2018 SEE CARE EVERYWHERE [facility] us Provider Outside LAB - HIM EXTERNAL RESULT Final Result Performing Organization Address City/[facility]/ZIP Co de Phone Number [facility] [address] [phone] * [facility] (01/07/2018) Narrative [facility] - 01/07/2018 Kelsie Best LPN Please abstract the following data from this visit with this patient into the appropriate field in Epic: Other Tests found in the patient's chart through Chart Review/Care Everywhere: Colonoscopy done on 01-07-2018 at [facility]-repeat in 5 years SEE CARE EVERYWHERE [facility] us Provider Outside PROCEDURES Final Result * Hepatitis C antibody (06/11/2016 10:43 AM INSPECTOR AND CLERK) Hepatitis C Antibody Nonreactive Assay performance characteristics have not been established for newborns, infants, and children NR [facility] Blood specimen (specimen) 06/11/2016 10:43 AM INSPECTOR AND CLERK 06/11/2016 10:44 AM INSPECTOR AND CLERK us Kwan De La Cruz MD LAB - BLOOD ORDERABLES Final R esult [facility] [address] [place] [address] from Last 3 Months or Most Recently Relevant to Health Maintenance Insurance [employer] MEDICARE ADVANTAGE [employer] MEDICARE ADVANTAGE Care Teams Retinal Angiographer Relationship Specialty Start Date End Date Kory Magallon MD [facility] [address] [place] [address] PCP - General Family Medicine 11/14/23 Claudette Retana MD [address] [place] [address] Assigned Dermatology Provider 08/09/24
--- OUTSIDE RECORDS SUMMARY | 2024-11-07 00:30 | XMS_ITS | Encounter Summary ---
Author Organization [facility] Address [address] [place] [address] Care Team Providers Care Support Representative Name Role Phone Kwan De La Cruz MD Primary Care Provider [phone] Claudette Retana MD Unavailable Kwan De La Cruz MD Unavailable [phone] Mechelle Mtz INVENTORY SPECIALIST MANAGER PROGRESS WORKER Unavailable + Kwan De La Cruz MD Unavailable [phone] Mechelle Mtz INVENTORY SPECIALIST MANAGER PROGRESS WORKER Unavailable + Mechelle Mtz APRN PROGRESS WORKER Unavailable + Claudette Retana MD Unavailable Kory Magallon MD Primary Care Provider [phone] Claudette Retana MD Unavailable Encounter Details Date Type Department Care Team (Late st Contact Info) Description 05/01/2021 [facility] [place] [address] [address] Nasrin Smith, ANGELO Social History Tobacco Use Types Packs/Day Years Used Date Smoking Tobacco: Never Smokeless Tobacco: Never Alcohol Use Standard Drinks/Week Comments Yes 0 (1 standard drink = 0.6 oz pur e alcohol) occassional PHQ-2 Answer Date Recorded PHQ-2 Score 0 04/28/2021 Comments No Sex and Gender Information Value Date Recorded Sex Assigned at Female 04/21/2021 9:03 AM MICROCOMPUTER SUPPORT SPECIALIST Legal Sex Female 4:57 AM MICROCOMPUTER SUPPORT SPECIALIST Gender Identity Female 04/21/2021 9:03 AM MICROCOMPUTER SUPPORT SPECIALIST Sexual Orientation Not on file COVID-19 Exposure Response Date Recorded In the last month, have you been in contact with someone who was confirmed or suspected to have Coronavirus / COVID-19? No / Unsure 04/28/2021 1:37 PM MICROCOMPUTER SUPPORT SPECIALIST documented as of this encounter Plan of Treatment Not on file documented as of this encounter Visit Diagnoses Not on filedocumented in this encounter Care Teams Support Representative Relationship Specialty Start Date End Date Kwan De La Cruz MD PCP - General Family Practice 02/17/18 06/19/[address] [facility] [address] [address] PCP - General Family Medicine 11/14/23 Claudette Retana MD [address] [place] [address] [address] [place] [address] Assigned Surgical Provider 03/11/20 10/26/22 Kwan De La Cruz MD [address] [place] [address] Assigned PCP 01/29/21 05/27/21 Mechelle Mtz APRN PROGRESS WORKER [facility] [place] [address], [place] [address] Assigned PCP 05/28/21 07/29/21 Kwan De La Cruz MD [address] [place] [address] Assigned PCP 07/30/21 03/09/22 Mechelle Mtz APRN PROGRESS WORKER [facility] [place] [phone] Assigned PCP 03/10/22 05/04/22 Mechelle Mtz APRN PROGRESS WORKER [facility] [place] [address] [place] [phone] Assigned PCP 07/14/22 01/25/23 Claudette Retana MD [address] [place] [address] Assigned Surgical Provider 11/17/22 08/08/24 Claudette Retana MD [address] [place] [address] Assigned Dermatology Provider 08/09/24 documented as of this encounter
--- OUTSIDE RECORDS SUMMARY | 2024-11-07 00:30 | XMS_ITS | Data Portability ---
Author Organization [facility] [employer], [id number] Address [address] [facility] [address] [place] [address] Assessment No assessment recorded. Plan of Treatment Reminders Order Date Submit Date Provider Last Modified By Organization Details Last Modified Time Details Appointments None recorded. Lab None recorded. Referral None recorded. Procedures None recorded. Surgeries None recorded. Imaging US, pelvis 2021 022 JARAD Not available 12:21:26 Medication Orders fluocinolon e 0.025 % topical ointment 2021 022 [id number] [employer], [address] [facility] [address] [place], [address], 22:58:08 Estrace 0.01% (0.1 mg/gram) vaginal cream 2020 021 J[id number] [employer], [address] [facility] 3 [place], [address], 22:56:57 Patient TargetsNo targets recorded. Patient Instructions Encounter Date Encounter Id Patient Instructions Last Modified By Organization Details Last Modified Time 08/08/2020 [id number] Due for Pap with HPV cotesting in 04/2023. Reviewed her [place] chart. I do not find any record of a 2019 mammogram. She will schedule one this year. I don't know if vaginal estrogen will decrease her UTI frequency but I willing to write the Rx. 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 There are typically several [...] pancreatic cancer. [email or web address] Not available 08/08/2020 22:54:51 08/15/[id number] Reviewed and updated her surgical and family history. No breast, colon, ovarian, uterine, prostate or pancreatic cancer. Her maternal aunt was diagnosed with Fallopian tube cancer in her 60's. No FH of HTN, AL or CVA. After the visit was done, [...] bilat eral No observ ation [facility] ed[facility] [address], [place], [address], 03/03/2021 16:43:24 09/15/19 22 09/14/2021 , danny zafar No observ ation record ed. JARAD [address], [facility], [place], [address], 09/26/2021 19:39:32 Result Notes None recorded. Problems Name Problem SNOMED Code Status Onset Date Resolution Date Notes Provider Name and Address Organization Details Recorded Time Hypothyroidism 58654996 Active 01/2011 Not Available [facility] 0 03:57:50 Notes:*Problem Name: Cerebra l vascular accident *Problem Status: active Problem Notes None recorded. Procedures Surgical History Date Name Laterality Status Provider Name and Address Organization Details Recorded Time 03/03/20 21 Date of Last Mammogram completed Madelyn Mary [facility] [employer] 03/03/2021 16:43:45 04/25/20 18 Date of Last Pap Smear completed Chelsea Perkl [facility] [employer] 08/14/2021 13:15:18 01/08/20 18 Date of Last Colonoscopy completed Chelsea Perkl [facility] [employer] 08/14/2021 13:16:03 destruction [place] [address] [facility] [address], [place], [address] [employer] 08/08/2020 22:24:59 excision of basal [place] [address] [facility] [address], [place], [address] [employer] 08/08/2020 16:17:12 tonsillectomy and adenoidectomy completed Yumiko Hitchcock [facility] [employer] 08/08/2020 16:23:26 Imaging Results None recorded. Procedure Notes None recorded. Medical Equipment None Reported. Allergies Allergen ID Allergen Name Allergen Category Reaction Reaction Severity Criticality Documentation Date Start Date Code Code System Note Provider Name and Address Organization Details Recorded Time 48212 Lipitor medicatio n Not available Not available Not available 12/23/2019 47661 5 RxNorm *Note : not an aller gy but cause d a lot of muscl e barbara ess Not Available [facility] 0 03:45:07 Medications Name Sig Start Date [...] Updated DateTime 08/08/2020 168.91 cm 41 kg/m2 933553.3 9 g 126 mm[Hg] 84 mm[Hg] Yumiko Hitchcock [facility] [employer] 1 16:32:51 Date Recorded Body weight Body mass index (BMI) Body height Systolic blood pressure Diastolic blood pressure Provider Name and Address Organization Details Last Updated DateTime 08/15/2021 607133.3 9 g 42 kg/m2 168.91 cm 122 mm[Hg] 78 mm[Hg] Chelsea [place] [facility] [employer] 2 15:24:05 Social History Question Answer Notes LastModified by Organizat ion Details LastModified Time Tobacco Smoking Status Never Smoker Eliza Thomson null, [place] [facility] [employer] 08/04/2020 17:01:59 Do You Have An Advance [...] 08/15/2021 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 Information not available 08/04/2020 What is your [...] SNOMED-CT Code Diagnosis ICD10 Code Diagnosis Note [id number] CARMEN YEN MD [id number] [address] [facility] ,[address] [place] [address] 08/08/2020 16:20:30 08/08/2020 18:34:01 Gynecologic examination 22213167 Z01.419 Family his tory of malignant neoplasm 680930887 Z80.9 Postmenopa usal maternal aunt recently dx with tubal cancer Atrophic vulva 847740914 N90.5 [id number] CARMEN YEN MD [id number] [address] [facility] ,[address] [place] [address] 08/15/2021 15:04:48 08/16/2021 11:15:40 Gynecologic examination 13123781 Z01.419 Screening for malignant neoplasm of breast 803936747 Z12.39 Up to date; last mammogram 02/2021. Screening for malignant neoplasm of colon 444787686 Z12.11 Due next year. Screening for malignant neoplasm of cervix 721153337 Z12.4 Due for Pap with HPV cotesting in 04/2023. Vulval irritation 146952 003 N90.89 Her vulvar irritation and pruritus [...] at her vulva. [id number] CARMEN YEN MD [id number] [facility] [address] [facility] ,[address] [place] [address] 09/14/2021 13:53:58 09/14/2021 14:14:45 Pain in pelvis 61181694 R10.2 Health Concerns Section Related Observation LastModified by Organization Detai ls LastModified Time None Recorded Concern Status LastModified by Organization Details LastModified Time None Recorded Advance Directives Directive N: Payers Insurance Date Sequence Insurance Name Policy Number Policy Elkins Covered Member ID Elkins Member ID Guarantor Name 09/25/2021 1 [place] [id number] Emily Caldera [id number] Emily Caldera 08/28/2021 1 [place] [id number] Wicho Caldera [id number] Emily Caldera Notes Date Note Type Note Provider Name and Address Organization Details Recorded Time 08/08/2020 text/html This woman is a 59 year old G 3 P 3003 who presents for her annual exam. Roomed by [facility]. She declines mechanical service technician for her breast and/or pelvic exam. Her primary health and social care teacher was not documented today. She does not have an advanced directive. She does not want STI screening. Depression risk assessment: PHQ9 SCORE: 0 Tobacco use: no Her menses are no longer present. She was told to use vaginal estrogen to decrease her bladder infections. She has 1-2/year. Since her last HELPER TEACHER annual exam 1 year ago she had [...] have not had cancer. She moved to [place], [place] in February. It is near [place]. She lives two houses away from her daughter who gave to 31 week identical twin girls in May. They recently came home after their NICU stay. Her other granddaughter spends half the year in [place]; her son [place] 50% [place] [address] [facility],[address], [place], [address], [facility] [employer] 08/08/2020 22:57:34 08/15/2021 text/html This woman is a 60 year old who presents for her annual exam.Roomed by Chelsea. She declines mechanical service technician for her breast and/or pelvic exam. Her primary health and social care teacher is Kory Magallon MD ([facility]).She does not have an advanced directive. She does not want STI screening.Depressio n risk assessment: PHQ-9 SCORE: 3Tobacco use: no Her menses are no longer present. Since her last HELPER TEACHER annual exam 1 year ago her vulvar [...] twins live very close to her in [place]; she watches them 5 days/week. Hr 4th grandchild [place] in [place] [address] [facility],[address], [place], [address], [place] [facility] [employer] 08/15/2021 23:04:31 OBGyn Episode Ob Episode Information Episode Created Date Number of Fetuses Patient Bloodtype Patient rh Status Prepregnancy Weight lbs Domestic Partner Domestic Partner Phone Father Name Telegrapher Agent Status 08/05/19 21 1 CLOSED Fetus Data First Name Last Name Admitted to NICU Weight (g) Sex Living Outcome Pediatric Complications Fetus ID Race Codes Race Delivery Type 4139.02 7 M Full Term [id number] Eliel Calculation Initial Eliel Date Initial Exam [...] Domestic Partner Domestic Partner Phone Father Name Telegrapher Agent Status 08/05/19 21 1 CLOSED Fetus Data First Name Last Name Admitted to NICU Weight (g) Sex Living Outcome Pediatric Complications Fetus ID Race Codes Race Delivery Type 4337.24 6704 M Full Term 14199 Eliel Calculation Initial Eliel Date Initial Exam [...] Domestic Partner Domestic Partner Phone Father Name Telegrapher Agent Status 08/05/19 21 1 CLOSED Fetus Data First Name Last Name Admitted to NICU Weight (g) Sex Living Outcome Pediatric Complications Fetus ID Race Codes Race Delivery Type 3572.03 7 F Full Term [id number] Eliel Calculation Initial Eliel Date Initial Exam [...]
== END 2024-11-06 13:30 | disposition home or self-care (01) ==
LOC: MRI 13:29
PROVIDERS: PCP Family Medicine; Visit Provider Orthopaedic Surgery Orthopaedic Surgery of the Spine
DX: M48.062 Spinal stenosis, lumbar region with neurogenic claudication (principal); M51.26 Other intervertebral disc displacement, lumbar region; M51.27 Other intervertebral disc displacement, lumbosacral region
CPT/HCPCS: 72148

== ENCOUNTER 2024-12-11 12:54 | Outpatient (CLI) | payer MEDICARE, SELFPAY | END 2024-12-11 12:55 | disposition home or self-care (01) | LOC: INJ CL 12:56 | PROVIDERS: PCP Family Medicine; Visit Provider Family Medicine | DX: M54.16 Radiculopathy, lumbar region (principal); M48.062 Spinal stenosis, lumbar region with neurogenic claudication | CPT/HCPCS: 62323; J0702; Q9966 ==

== ENCOUNTER 2025-04-05 12:00 | Outpatient (CLI) | payer MEDICARE, SELFPAY | END 2025-04-05 12:01 | disposition home or self-care (01) | PROVIDERS: PCP Family Medicine; Visit Provider Family Medicine | DX: E78.2 Mixed hyperlipidemia (principal) | CPT/HCPCS: 80048; 80061; 84460 ==